=== PATIENT | female | born 1960 | race Two or more races ===

== ENCOUNTER 2017-03-21 10:55 | Emergency (ER) | payer OTHER ==
[2017-03-21 11:00] VITALS: BP 118/70; PULSE 73; TEMP 98.2; BMI 47.0
--- NOTE | 2017-03-21 12:49 | PDOC ---
History of Present Illness - General Chief Complaint: Pain, Acute Stated Complaint: LEG PAIN Time Seen by Provider: 03/21/17 11:12 History Source: Patient - History of Present Illness Initial Comments: 03/21/17 12:54 56 year old female with right leg numbness x 2 years s/p back surgery as per patient. report right leg pain x 2 weeks that is not improving at home. denies incontinence of bowel or urine. pmhx : HIV disease Past History - Past Medical History Allergies/Adverse Reactions: Allergies Allergy/AdvReac Type Severity Reaction Status Date / Time cephalexin monohydrate Allergy Severe Hives Verified 03/21/17 11:01 [From Keflex] lactose [Lactose] Allergy Mild diarrhea Verified 03/21/17 11:01 metronidazole [From Flagyl] AdvReac Intermediate Rash Verified 03/21/17 11:01 Home Medications: Ambulatory Orders Albuterol Sulfate Inhaler - [Ventolin HFA Inhaler -] 2 inh PO Q6H #1 inh Diphenhydramine [Benadryl Capsule -] 50 mg PO BID #60 capsule 10/08/16 Efavirenz/Emtricitab/Tenofovir [Atripla Tablet -] 1 tab PO DAILY #30 tab Ranitidine [Zantac -] 1 tab PO BID #60 tablet 10/08/16 Lidocaine/Hydrocortisone AC [Lidocaine-Hc 3-1% Cream] 1 applic TD PRN #1 bottle 10/26/16 Oxycodone HCl/Acetaminophen [Percocet 10-325 mg Tablet] 1 each PO Q6H PRN #120 tablet MDD 4 03/02/17 Lidocaine 2% Jelly [Xylocaine 2% Jelly -] 1 applic TP BID #1 tube 03/17/17 Lidocaine 2% Viscous Oral [Xylocaine 2% Viscous Oral -] 20 ml PO Q6H #1 tube 05/22 Sertraline HCl [Zoloft] 100 mg PO AM #30 tablet 03/17/17 Zolpidem Tartrate [Ambien] 10 mg PO HS #30 tablet MDD 1 03/17/17 Anemia: No Asthma: No Cancer: No Cardiac Disorders: No CVA: No COPD: No CHF: No Dementia: No Diabetes: No GI Disorders: No Disorders: No HTN: No Hypercholesterolemia: No Liver Disease: No Psychiatric Problems: No (Not before the surgery) Seizures: No Thyroid Disease: No - Surgical History Abdominal Surgery: Yes (benign tumor removed 2004) Appendectomy: No Cardiac Surgery: No Cholecystectomy: No Lung Surgery: No Neurologic Surgery: Yes (BACK SX - X 3; [id number]) Orthopedic Surgery: Yes (LEFT KNEE SURGERY TORN MENISCUS, back surgery, r shoulder surgery 2014) - Suicide/Smoking/Psychosocial Hx Smoking Status: Yes Smoking History: Former smoker Have you smoked in the past 12 months: No Number of Cigarettes Smoked Daily: 1 If you are a former smoker, when did you quit?: 2014 Cigars Per Day: 0 Information on smoking cessation initiated: No 'Breaking Loose' booklet given: 06/05/15 Hx Alcohol Use: No Drug/Substance Use Hx: No Substance Use Type: None, Alcohol Hx Substance Use Treatment: No Trauma Specific PMHX - Complaint Specific PMHX Arthritis: No Review of Systems - Review of Systems Able to Perform ROS?: Yes Is the patient limited Greek proficient: No Constitutional: No: Symptoms Reported, See HPI, Chills, Diaphoresis, Fever, Loss of Appetite, Malaise, Night Sweats, Weakness, Weight Stable, Unintentional Wgt. Loss, Unexplained wgt Loss, Other Musculoskeletal: Yes: Other (right leg pain) *Physical Exam - Vital Signs Last Vital Signs Temp Pulse Resp BP Pulse Ox 98.2 F 73 16 118/70 03/21/17 10:57 03/21/17 10:57 03/21/17 10:57 03/21/17 10:57 - Physical Exam General Appearance: Yes: Appropriately Dressed Musculoskeletal: positive: Normal Inspection. negative: Vertebral Tenderness Extremity: positive: Other (unequal sensation to right lower extremity. equal temperature. + b/l pedal pulse/ ) Integumentary: positive: Normal Color, Dry, Warm Neurologic: positive: Fully Oriented, Alert, Normal Mood/Affect ED Treatment Course - RADIOLOGY Radiology Studies Ordered: Category Date Time Status DUPLEX VASCUL US-1 LEG [US] Stat Ultrasound 03/21/17 11:23 Completed Progress Note - Progress Note Progress Note: A: right leg pain/ numbness P: us/ negative for DVT + bakers cyst. patient reports that she will follow up with orthopedic and neurology for chronic conditions. silvia control with NSAIDS / Percocet as per previously prescribed by pMD *DC/Admit/Observation/Transfer Diagnosis at time of Disposition: Right leg paresthesias Lau's cyst Qualifiers: Laterality: right Qualified Code(s): M71.21 - Synovial cyst of popliteal space [Lau], right knee - Referrals Referrals: Beck Leigh MD [Staff Physician] - Call tomorrow - Patient Instructions Printed Discharge Instructions: Bakers Cyst Additional Instructions: take ibuprofen every 6 hours as needed for pain. take percocet for severe pain. follow up with neurology as soon as possible. return to the ER if symptoms worsen. - Post Discharge Activity Forms/Work/School Notes: Back to Work
== END 2017-03-21 13:10 | disposition home or self-care (01) ==
LOC: JERFT 10:55
DX: M71.21 Synovial cyst of popliteal space [Baker], right knee (principal)
CPT/HCPCS: 93971-TC; 99281-25

== ENCOUNTER 2017-07-07 09:58 | Inpatient (IN) | payer OTHER ==
[2017-07-05 15:38] VITALS: BMI 50.9
[2017-07-07] MEDS ORDERED: DEXAMETHASONE SOD PHOSPHATE 4 MG/1 ML VIAL ONE (10:18)
[2017-07-07] MEDS ORDERED: fentaNYL CITRATE 250 MCG/5 ML VIAL ONE (10:18)
[2017-07-07] MEDS ORDERED: ROCURONIUM BROMIDE 50 MG/5 ML VIAL ONE ×2 (10:18→13:39)
[2017-07-07] MEDS ORDERED: MIDAZOLAM HCL 2 MG/2 ML SINGLE DOSE VIAL ONE (10:18)
[2017-07-07] MEDS ORDERED: LIDOCAINE HCL 2% 100 MG/5 ML DISP.SYRIN ONE (10:18)
[2017-07-07] MEDS ORDERED: PROPOFOL 20 ML ONE (10:18)
[2017-07-07] MEDS ORDERED: ceFAZolin SODIUM 1 GM VIAL IVPB ONE (13:08)
[2017-07-07] MEDS ORDERED: ceFAZolin SODIUM 1 GM VIAL ONE (13:16)
[2017-07-07] MEDS ORDERED: ePHEDrine SULFATE 50 MG/1 ML AMPULE ONE (13:37)
[2017-07-07] MEDS ORDERED: BUPIVACAINE HCL/PF 0.5% (5MG/ML) 10 ML VIAL IJ ONE ×2 (14:19→14:41)
[2017-07-07] MEDS ORDERED: NEOSTIGMINE METHYLSULFATE 0.5 MG/ML - 10 ML MDV ONE (14:39)
[2017-07-07] MEDS ORDERED: GLYCOPYRROLATE 0.2 MG/1 ML VIAL ONE ×2 (14:39)
--- NOTE | 2017-07-07 14:51 | HP ---
History & Physical Update - History History: No Change - Physical Physical: No Change - Assessment Assessment: No Change - Plan Plan: No Change (Laparoscopic possible open vertical sleeve gastrectomy possible liver biopsy EGD)
--- NOTE | 2017-07-07 14:54 | OP ---
Operative Note - Note: Operative Date: 07/07/17 Pre-Operative Diagnosis: Morbid obesity. BMI 50.9 Operation: Laparoscopic vertical sleeve gastrectomy, wedge liver biopsy, EGD Post-Operative Diagnosis: Other (Morbid obesity, hepatomegaly) Surgeon: Pramod Warren Public Safety Dispatcher: Ed Laguerre Anesthesia: General Specimens Removed: Greater curvature of stomach. Left lobe liver biopsy Estimated Blood Loss (mls): 30 Drains & Tubes with Location: 36 Fr Bougie Operative Report Dictated: Yes
[2017-07-07] MEDS ORDERED: SODIUM CHLORIDE 1,000 ML IV SCH (15:00)
[2017-07-07] MEDS ORDERED: METOCLOPRAMIDE HCL INJECTION 10 MG/2 ML VIAL ONE (15:09)
[2017-07-07] MEDS ORDERED: PROMETHAZINE HCL 25 MG/1 ML VIAL IVPB PRN (15:09)
[2017-07-07] MEDS ORDERED: HYDROmorphone HCL CARPU-JECT 2 MG/1 ML DISP.SYRIN ONE ×2 (15:09→16:10)
[2017-07-07] MEDS ORDERED: ACETAMINOPHEN INJECTION 100 ML IVPB ONE (15:09)
[2017-07-07] MEDS: HYDROmorphone HCL CARPU-JECT 2 MG/1 ML DISP.SYRIN IVPUSH PRN ×3 (15:10→16:10)
[2017-07-07] MEDS: ACETAMINOPHEN 1000 MG/100 ML VIAL (NON FORMULARY) IVPB SCH ×2 (15:15→19:59)
--- NOTE | 2017-07-07 15:26 | SPEC ---
DATE OF OPERATION: 07/07/2017 SURGEON: Pramod Warren MD HIGH SCALER: Ed Laguerre MD PREOPERATIVE DIAGNOSES: 1. Morbid obesity. 2. Body mass index 50.9. 3. Asthma. 4. Gastroesophageal reflux disease. POSTOPERATIVE DIAGNOSES: 1. Morbid obesity. 2. Body mass index 50.9. 3. Asthma. 4. Gastroesophageal reflux disease. 5. Hepatomegaly. PROCEDURE: 1. Laparoscopic vertical sleeve gastrectomy. 2. Laparoscopic wedge liver biopsy. 3. Upper endoscopy/esophagogastroduodenoscopy. SPECIMEN: 1. Greater curvature of the stomach. 2. Left liver wedge biopsy. ESTIMATED BLOOD LOSS: 30 mL DRAINS: None. ANESTHESIA: GET. BOUGIE: A 36-Welsh. REASON FOR PROCEDURE: This 56-year-old female presented to the office for weight loss options. After describing different options, she has decided to proceed with a laparoscopic vertical sleeve gastrectomy, possible open, possible liver biopsy, and upper endoscopy. RISKS AND BENEFITS: After describing the different options for weight loss management, the patient decided to proceed with a laparoscopic, possible open vertical sleeve gastrectomy. The patient was seen by the respective subspecialties and cleared for surgery. The risks and benefits of the procedure were explained. These included bleeding, infection, hernia, DE, DVT, PE, injury to surrounding structures including the liver, colon, bowel, spleen, esophagus, vessel injury, nerve injury, weight regain, gastric leak, staple line leak, sleeve leak, obstruction, vitamin deficiency, hair loss and as some of the possible complications. The patient understood and signed informed consent. DESCRIPTION OF PROCEDURE: The patient was placed supine on the operating room table. The patient underwent general endotracheal intubation. A Santos catheter was inserted. The arms were brought out at 90 degrees and secured. A footboard was placed and the legs were secured laterally with padding. The abdomen was prepped and draped in the usual sterile fashion. A timeout was performed. An incision was made in the left upper quadrant and a Veress needle inserted. Pneumoperitoneum was established. Subsequently, the Veress needle was removed and a 12-mm trocar was placed. The laparoscopic camera was then inserted and inspection of the abdominal cavity was performed. An incision was then made in the supraumbilical area and a 15-mm trocar was placed under direct visualization. A 5-mm trocar was then placed in the right upper quadrant and a 5-mm trocar was placed below the left subcostal margin. A stab wound was made in the subxiphoid area and a Claudia clamp inserted and removed to dilate the tract. A Martín liver retractor was inserted. The post was secured at the bedside by the nursing staff. The patient was placed in steep reverse Trendelenburg position and the Martín liver retractor was used to secure the liver towards the anterior abdominal wall. The pylorus was identified and 6 cm proximal to it, the lesser sac was entered using the LigaSure device. All lateral attachments to the greater curvature of the stomach, including the short gastric vessels, were ligated using the LigaSure device toward the gastrosplenic and gastrophrenic ligaments. Once this was done in its entirety, it was confirmed that all tubes within the nasal or oropharyngeal cavity, including a temperature probe, was removed by Anesthesia. The bougie was then inserted by Anesthesia. Transection of the stomach was then begun staying adjacent to the bougie but away from the angularis. Transection of the stomach was performed near the portion of the stomach where the lesser sac was entered. Two laparoscopic Endo-LULU black lalita were used at this location. Laparoscopic Endo LULU purple staple loads were then used for the remainder of the transection until the greater curvature of the stomach was fully transected. This was done staying close to the bougie. Care was taken to stay away from the angle of His cephalad. The staple line was then inspected. Hemostasis was identified. A leak test was then performed. It was clamped distally to the staple line. Irrigation solution was placed in the left upper quadrant and air was insufflated by Anesthesia into the sleeve. No leaks were identified. No obstruction was identified. This was done through the entirety of the staple line. At this point, the irrigation solution was suctioned and again, hemostasis was noted. A wedge liver biopsy was then performed. The left lobe of the liver was identified and a portion of the edge was grasped. Using electrocautery, a wedge of the liver was excised. This was removed and sent off the field as specimen. Hemostasis at the site of the wedge liver biopsy was attained using electrocautery. The 15-mm supraumbilical trocar was then removed and the greater curvature specimen removed from the site using a sponge stick cheney. The specimen was inspected and a Veress needle inserted. The specimen insufflated adequately and no leak was identified. The staple line was noted to be intact. A Matteo-Makenzie device was then used to temporarily close the fascia with a 0 Vicryl suture at the site. The 15-mm trocar was then reinserted and the 12-mm trocar in the left upper quadrant was removed. The fascia at this site was then closed using the Matteo-Makenzie device with a 0 Vicryl suture. Again, hemostasis was noted. The Martín liver retractor was then removed under direct visualization. Pneumoperitoneum was desufflated and the fascial sutures were secured. Hemostasis was noted at all incision sites and Marcaine was injected at all incision sites. All incision sites were closed using 4-0 Biosyn. Sterile dressings were applied. The patient tolerated the procedure well and was transferred to the recovery room in stable condition with the Santos catheter intact. The patient was transferred to telemetry for further monitoring. In addition, an upper endoscopy was performed at the end. This was to evaluate the staple line and to evaluate for further leak or obstruction. The endoscope was inserted, and the entirety of the esophagus, GE junction, staple line, and gastric pouch was inspected. Staple line was noted to be fully intact, and hemostasis was noted. There was no leak or obstruction noted. Stomach was fully decompressed, and the endoscope fully removed. Patient tolerated the procedure well, transferred to recovery room in stable condition. Quan [id number]
[2017-07-07] MEDS ORDERED: PROMETHAZINE HCL 25 MG/1 ML VIAL ONE (15:36)
[2017-07-07] MEDS: METOCLOPRAMIDE HCL INJECTION 10 MG/2 ML VIAL IVPUSH SCH ×2 (15:45→22:00)
[2017-07-07] MEDS ORDERED: LORazepam 2 MG/ML SDV VIAL IVPUSH PRN (15:47)
[2017-07-07 16:01] LABS: HEMATOCRIT 38.5 % (32.4-45.2); HEMOGLOBIN 12.4 GM/dL (10.7-15.3); MCH 27.5 pg (25.7-33.7); MCHC 32.3 g/dl (32.0-36.0); MEAN CELL VOLUME 85.3 fl (80-96); MEAN PLT VOLUME 9.6 fl (7.5-11.1); PLATELET COUNT 238 K/MM3 (134-434); RBC 4.51 M/mm3 (3.60-5.2); RDW 15.9 % (11.6-15.6); WHITE BLOOD COUNT 9.1 K/mm3 (4.0-10.0)
[2017-07-07 16:34] LABS: ALBUMIN 3.3 g/dl (3.4-5.0); ANION GAP 7 (8-16); BILIRUBIN,TOTAL 0.2 mg/dL (0.2-1.0); BLOOD UREA NITROGEN 14 mg/dL (7-18); CALCIUM 7.4 mg/dL (8.5-10.1); CHLORIDE 108 mmol/L (98-107); CO2 25 mmol/L (21-32); CREATININE 0.6 mg/dL (0.55-1.02); GLUCOSE,RANDOM 138 mg/dL (74-106); POTASSIUM 3.9 mmol/L (3.5-5.1); SGOT/AST 41 U/L (15-37); SGPT/ALT 43 U/L (12-78); SODIUM 140 mmol/L (136-145); TOT PROT 6.5 g/dl (6.4-8.2)
[2017-07-07 16:35] LABS: ALK PHOS 133 U/L (45-117)
[2017-07-07] MEDS: HYDROmorphone HCL CARPU-JECT 2 MG/1 ML DISP.SYRIN IVPB PRN ×2 (17:42→21:05)
[2017-07-07] MEDS: ONDANSETRON 4 MG/2 ML VIAL IVPUSH SCH (20:35)
[2017-07-07] MEDS: FAMOTIDINE 20 MG/50 ML IVPB 20 MG/50 ML MG IVPB SCH (22:01)
[2017-07-07] MEDS: ENOXAPARIN NA (PORCINE) 40 MG/0.4 ML DISP.SYRIN SQ SCH (22:01)
[2017-07-08] MEDS: HYDROmorphone HCL CARPU-JECT 2 MG/1 ML DISP.SYRIN IVPB PRN ×4 (00:08→20:35)
[2017-07-08] MEDS: ONDANSETRON 4 MG/2 ML VIAL IVPUSH SCH ×8 (00:08→22:59)
[2017-07-08] MEDS: ACETAMINOPHEN 1000 MG/100 ML VIAL (NON FORMULARY) IVPB SCH ×2 (03:00→09:02)
[2017-07-08] MEDS: METOCLOPRAMIDE HCL INJECTION 10 MG/2 ML VIAL IVPUSH SCH ×4 (03:01→20:35)
[2017-07-08] MEDS ORDERED: ALBUTEROL SO4 18 GM HFA INHALER IH PRN (04:39)
[2017-07-08 07:09] LABS: HEMATOCRIT 35.2 % (32.4-45.2); HEMOGLOBIN 11.1 GM/dL (10.7-15.3); MCH 27.2 pg (25.7-33.7); MCHC 31.6 g/dl (32.0-36.0); MEAN CELL VOLUME 86.1 fl (80-96); MEAN PLT VOLUME 9.3 fl (7.5-11.1); PLATELET COUNT 234 K/MM3 (134-434); RBC 4.09 M/mm3 (3.60-5.2); RDW 16.2 % (11.6-15.6); WHITE BLOOD COUNT 9.1 K/mm3 (4.0-10.0)
[2017-07-08 07:24] LABS: CHLORIDE 107 mmol/L (98-107); POTASSIUM 3.9 mmol/L (3.5-5.1); SODIUM 139 mmol/L (136-145)
[2017-07-08 07:35] LABS: ALK PHOS 116 U/L (45-117); ANION GAP 8 (8-16); BILIRUBIN,TOTAL 0.5 mg/dL (0.2-1.0); BLOOD UREA NITROGEN 9 mg/dL (7-18); CALCIUM 7.3 mg/dL (8.5-10.1); CO2 24 mmol/L (21-32); CREATININE 0.6 mg/dL (0.55-1.02); GLUCOSE,RANDOM 111 mg/dL (74-106); SGOT/AST 39 U/L (15-37); SGPT/ALT 39 U/L (12-78)
[2017-07-08] MEDS: FAMOTIDINE 20 MG/50 ML IVPB 20 MG/50 ML MG IVPB SCH ×2 (09:02→21:12)
[2017-07-08] MEDS: ENOXAPARIN NA (PORCINE) 40 MG/0.4 ML DISP.SYRIN SQ SCH ×2 (09:05→21:12)
--- NOTE | 2017-07-08 09:56 | PN ---
Progress Note (short form) - Note Progress Note: Anesthesia postop note 56 y/o F s/p GA for laparoscopic gastric sleeve POD#1, vss, aaox3, some abdominal apin. No anesthesia complications.
[2017-07-08] MEDS: SODIUM CHLORIDE 1,000 ML IV SCH (10:19)
[2017-07-08] MEDS: ACETAMINOPHEN 325 MG TABLET (FP) PO PRN (18:39)
[2017-07-08] MEDS: oxyCODONE HCL 5 MG TABLET PO PRN (18:39)
--- NOTE | 2017-07-08 18:50 | PN ---
Progress Note (short form) - Note Progress Note: POD 1 Pain controlled No nausea Vital Signs Period Temp Pulse Resp BP Sys/Dickson Pulse Ox Last 24 Hr 97.8 F-99.5 F 68-77 18-20 110-129/46-67 95-95 Abd soft CBC, BMP 07/08/17 05:35 07/08/17 05:35 UGI: no leak/obstruction Clears Ambulate Discharge planning
[2017-07-09] MEDS: SODIUM CHLORIDE 1,000 ML IV SCH (01:00)
[2017-07-09] MEDS: ACETAMINOPHEN 325 MG TABLET (FP) PO PRN ×2 (01:02→05:45)
[2017-07-09] MEDS: oxyCODONE HCL 5 MG TABLET PO PRN ×2 (01:02→05:46)
[2017-07-09] MEDS: METOCLOPRAMIDE HCL INJECTION 10 MG/2 ML VIAL IVPUSH SCH (02:41)
[2017-07-09] MEDS: ONDANSETRON 4 MG/2 ML VIAL IVPUSH SCH ×2 (02:41→06:34)
[2017-07-09 06:50] VITALS: BP 145/66; PULSE 75; TEMP 99.4
--- NOTE | 2017-07-12 14:33 | PATH ---
Surgical Pathology Report Patient Name: ESTHELA MARTI [facility]. Rec. #: [id number] /Age/Gender: 1960 (Age: 56) / F Account: [id number] Location: 4 W TELEMETRY U Taken: 07/07/2017 Received: 07/08/2017 Reported: 07/12/2017 Physicians: Pramod Warren M.D. Specimen(s) Received A: GREATER CURVATURE STOMACH B: LIVER BIOPSY Clinical History Morbid obesity Final Diagnosis A. STOMACH, GREATER CURVATURE, LAPAROSCOPIC VERTICAL SLEEVE GASTRECTOMY: PORTION OF STOMACH WITH MILD CHRONIC GASTRITIS. IMMUNOHISTOCHEMICAL STAIN FOR H. PYLORI IS NEGATIVE. B. LIVER, BIOPSY: LIVER PARENCHYMA WITH MILD STEATOSIS (~30%) AND MILD CHOLESTASIS. NO INCREASE IN IRON AND FIBROSIS ON PERFORMED SPECIAL STAINS (IRON AND TRICHROME). Electronically Signed Renuka Bergman M.D. Gross Description A. Received in formalin, labeled "greater curvature of stomach," is a 105 gram, 15.0 x 3.5 x 3.5 cm. portion of stomach with a stapled margin of resection. The serosa is peterson-amaral with minimal attached fat. The mucosa is peterson-pink with normal folds. No mucosal masses are identified. Director Digital [employer] sections are submitted in one cassette. B. Received in formalin labeled "liver biopsy," is a 1.8 x 1.0 x 0.9 cm peterson, irregular portion of soft tissue, consistent with a liver biopsy. The specimen is trisected and entirely submitted in one cassette. 07/08/201707/08/2017
== END 2017-07-09 08:56 | disposition home or self-care (01) | DRG 403 ==
LOC: JSAMEDAYSX 09:58 → EDSTATUS 11:00 → J4W 17:15
PROVIDERS: ADMIT Surgery; ATTEND Surgery
PROC: 0DB64Z3 Excision of Stomach, Percutaneous Endoscopic Approach, Vertical (ICD-10-PCS; principal; 2017-07-07 12:00)
PROC: 0FB24ZX Excision of Left Lobe Liver, Percutaneous Endoscopic Approach, Diagnostic (ICD-10-PCS; 2017-07-07 12:00)
PROC: 0DJ08ZZ Inspection of Upper Intestinal Tract, Via Natural or Artificial Opening Endoscopic (ICD-10-PCS; 2017-07-07 12:00)
DX: E66.01 Morbid (severe) obesity due to excess calories (principal); Z68.43 Body mass index [BMI] 50.0-59.9, adult; R16.0 Hepatomegaly, not elsewhere classified; J45.909 Unspecified asthma, uncomplicated; Z21 Asymptomatic human immunodeficiency virus [HIV] infection status; K21.9 Gastro-esophageal reflux disease without esophagitis; G47.33 Obstructive sleep apnea (adult) (pediatric)
CPT/HCPCS: 36415; 74241-TC-FY; 80053; 84703; 85027; 86850; 86900; 86901; 88307-TC; 94010; 94760

== ENCOUNTER 2018-09-19 07:09 | Day surgery (SDC) | payer OTHER ==
[2018-09-19 07:48] VITALS: BMI 29.4
[2018-09-19 08:29] VITALS: TEMP 97.5
[2018-09-19 09:13] VITALS: BP 113/60; PULSE 48
== END 2018-09-19 09:42 | disposition home or self-care (01) ==
LOC: JASU-ENDO 07:09
PROVIDERS: ATTEND Internal Medicine Gastroenterology
PROC: 0D768ZZ Dilation of Stomach, Via Natural or Artificial Opening Endoscopic (ICD-10-PCS; principal; 2018-09-19 08:45)
DX: R11.10 Vomiting, unspecified (principal); Z98.84 Bariatric surgery status; K44.9 Diaphragmatic hernia without obstruction or gangrene; K25.9 Gastric ulcer, unspecified as acute or chronic, without hemorrhage or perforation

== ENCOUNTER 2018-11-23 17:37 | Emergency (ER) | payer OTHER ==
[2018-11-23 18:33] VITALS: BMI 27.4
--- NOTE | 2018-11-23 18:35 | PDOC ---
Rapid Medical Evaluation Chief Complaint: Pain Time Seen by Provider: 11/23/18 18:30 Medical Evaluation: Allergies Allergy/AdvReac Type Severity Reaction Status Date / Time cephalexin monohydrate Allergy Severe Hives Verified 07/07/17 11:49 [From Keflex] Penicillins Allergy Severe Hives Verified 09/19/18 07:40 lactose [Lactose] Allergy Mild diarrhea Verified 07/07/17 11:49 metronidazole [From Flagyl] AdvReac Intermediate Rash Verified 07/07/17 11:49 11/23/18 18:30 I have performed a brief in-person evaluation of this patient. The patient presents with a chief complaint of: Bariatric surgery 07/07/17- sleeve , multple issues/ chronic vomiting , abdominal pain x 4 days worsening/ felt chills/ fevers/ nausea- vomiting x 6 , + diarhea Pertinent physical exam findings: pale, hunched over, + rebound / some guarding I have ordered the following: UA/ Ucx, / Labs The patient will proceed to the ED for further evaluation. 11/23/18 18:33 Discharge Disposition - Diagnosis Nausea & vomiting - Referrals - Patient Instructions - Post Discharge Activity
--- NOTE | 2018-11-23 20:39 | PDOC ---
History of Present Illness - General Chief Complaint: Vomiting/Diarrhea Stated Complaint: PAIN & VOMITING Time Seen by Provider: 11/23/18 18:30 - History of Present Illness Initial Comments: The pt is a 58F w/ s/p gastric sleeve, PUD, HIV who presents for evaluation of 3 days and acutely 1 day of epigastric abdominal pain with associated nausea and NBNB vomiting x7 today. The pain is burning/cramping, radiates to her back and the rest of her abdomen, is intermittent but persistent, worsened by foods ( and coffee today), and not alleviated by anything she can identify. She denies fevers/chills, chest pain, SOB, current diarrhea, blood in her stool , dysuria, hematuria, or changes in sensation. She was unable to take her meds today 2/2 PO intolerance. 11/23/18 20:41 Past History - Past Medical History Allergies/Adverse Reactions: Allergies Allergy/AdvReac Type Severity Reaction Status Date / Time cephalexin monohydrate Allergy Severe Hives Verified 11/23/18 18:33 [From Keflex] Penicillins Allergy Severe Hives Verified 11/23/18 18:33 lactose [Lactose] Allergy Mild diarrhea Verified 11/23/18 18:33 metronidazole [From Flagyl] AdvReac Intermediate Rash Verified 11/23/18 18:33 Home Medications: Ambulatory Orders Fluticasone Prop 0.05% Nasal [Flonase -] 1 - 2 spray NS DAILY PRN 07/05/17 Calcium Carbonate [Calcium] 500 mg PO DAILY #30 tablet 09/28/17 Omeprazole 20 mg PO DAILY PRN #30 capsule.dr MATOS 1 11/23/17 Efavirenz/Emtricitab/Tenofovir [Atripla Tablet -] 1 tab PO DAILY #30 tab Ascorbic Acid [Vitamin C -] 500 mg PO DAILY #30 tablet 07/20/18 Cholecalciferol (Vitamin D3) [Vitamin D3] 5,000 unit PO DAILY #30 tab.rapdis Gabapentin [Neurontin] 600 mg PO TID #90 tablet 07/20/18 Vitamin B Complex 1 each PO DAILY #30 capsule 07/20/18 Acetaminophen 325 mg PO BID PRN #60 tablet 09/13/18 Multivitamin [Multiple Vitamins] 1 each PO DAILY #30 tablet 10/13/18 Cetirizine HCl [Zyrtec -] 10 mg PO DAILY #30 tablet 11/01/18 Oxycodone HCl/Acetaminophen [Percocet 10-325 mg Tablet] 1 each PO Q6H PRN #120 tablet MDD 4 11/15/18 Diphenhydramine [Benadryl Capsule -] 50 mg PO BID PRN #60 capsule 11/16/18 Anemia: No Asthma: No Cancer: No Cardiac Disorders: No CVA: No COPD: No CHF: No Dementia: No Diabetes: No GI Disorders: Yes (vomiting chronic) Disorders: No HTN: No Hypercholesterolemia: No Liver Disease: No Psychiatric Problems: No (Not before the surgery) Seizures: No Thyroid Disease: No - Surgical History Abdominal Surgery: Yes (benign tumor removed 2004) Appendectomy: No Cardiac Surgery: No Cholecystectomy: No Lung Surgery: No Neurologic Surgery: Yes (BACK SX - X 3; [id number]) Orthopedic Surgery: Yes (LEFT KNEE SURGERY TORN MENISCUS, back surgery, r shoulder surgery 2014) - Suicide/Smoking/Psychosocial Hx Smoking Status: Yes Smoking History: Never smoked Have you smoked in the past 12 months: No Number of Cigarettes Smoked Daily: 1 If you are a former smoker, when did you quit?: 2016 Cigars Per Day: 0 Information on smoking cessation initiated: No 'Breaking Loose' booklet given: 06/05/15 Hx Alcohol Use: No Drug/Substance Use Hx: No Substance Use Type: None Hx Substance Use Treatment: No Review of Systems - Review of Systems Able to Perform ROS?: Yes Comments:: GENERAL/CONSTITUTIONAL: No fever or chills. No weakness HEAD, EYES, EARS, NOSE AND THROAT: No change in vision. No ear pain or discharge. No sore throat CARDIOVASCULAR: No chest pain or shortness of breath RESPIRATORY: Denies cough, hemoptysis GENITOURINARY: No dysuria, frequency, or change in urination MUSCULOSKELETAL: No joint or muscle swelling or pain. No neck or back pain SKIN: No rash NEUROLOGIC: No headache, vertigo, loss of consciousness, or change in strength/ sensation ENDOCRINE: No increased thirst. No abnormal weight change HEMATOLOGIC/LYMPHATIC: No anemia, easy bleeding, or history of blood clots ALLERGIC/IMMUNOLOGIC: No hives or skin allergy 11/23/18 20:39 Is the patient limited Iranian proficient: No *Physical Exam - Vital Signs Last Vital Signs Temp Pulse Resp BP Pulse Ox 98.6 F 68 18 103/53 L 99 11/23/18 18:30 11/23/18 18:30 11/23/18 18:30 11/23/18 18:30 11/23/18 18:30 - Physical Exam Comments: GENERAL: Awake, alert, and oriented to person/place/time, in no acute distress HEAD: No signs of trauma, normocephalic, atraumatic EYES: PERRLA, EOMI, sclera anicteric, conjunctiva clear ENT: Hearing grossly normal, nares patent, oropharynx clear without exudates. Moist mucosa LUNGS: No distress, speaks full sentences, clear to auscultation bilaterally HEART: Regular rate and rhythm, normal S1 and S2, no murmurs appreciated, peripheral pulses normal and equal bilaterally ABDOMEN: Soft, diffuse but focal epigastric TTP w/o rebound or guarding w/ +BS EXTREMITIES: Normal inspection, Normal range of motion, no edema. No clubbing or cyanosis NEUROLOGICAL: Cranial nerves II through XII grossly intact. Normal speech, normal gait, no focal sensorimotor deficits SKIN: Warm, Dry 11/23/18 20:39 ED Treatment Course - LABORATORY CBC & Chemistry Diagram: 11/23/18 20:38 11/23/18 20:38 Medical Decision Making - Medical Decision Making Labs unremarkable UA w/o evidence of UTI Will obtain CT A&P w/ IV and PO contrast to evaluate for perforation, obstruction, or other intra-abdominal pathology Zofran, IVF, Pepcid, Ofirmev for symptomatic relief When pt can tolerate PO, will give Carafate, Maalox, and Viscous lido 11/23/18 21:11 Impression: mild to moderate gallbladder overdistention is seen with possible minimal to mild gallbladder wall thickening. If there is clinical concern for possible acute cholecystitis additional evaluation utilizing sonography and/or a radionuclide HIDA scan may be performed. Status post sleeve gastrectomy. Small hiatal hernia. Possible diffuse hepatic steatosis. Diffuse colonic fecal retention which is probably moderate. 11/24/18 00:06 US w/ distended GB, stones, no secondary evidence of cholecysitis, CBD mildly dilated to 7mm and mild bump in LFTs w/ normal Tbili. GI consulted, no indication for ERCP at this time as history, imaging, and labs not consistent with CBD obstruction 11/24/18 01:37 The pt no longer feels nauseated. She states that her pain is near her baseline and type and reports that she usually takes Percocet 10/325 QID but has not taken it since this morning. We discussed her imaging, labs, and GI consultation. At this time the pt would like her home dose of Percocet to be discharged home. Will plan for D/C w/ GI f/u. Discharge instructions and return precautions given. Dipso: home 11/24/18 01:54 *DC/Admit/Observation/Transfer Diagnosis at time of Disposition: Nausea & vomiting Qualifiers: Vomiting type: unspecified Vomiting Intractability: non-intractable Qualified Code(s): R11.2 - Nausea with vomiting, unspecified Abdominal pain Qualifiers: Abdominal location: epigastric Qualified Code(s): R10.13 - Epigastric pain - Discharge Dispostion Disposition: HOME Condition at time of disposition: Stable Decision to Admit order: No - Referrals Referrals: Anila Del Valle NP [Primary Care Provider] - Geronimo Pike MD [Staff Physician] - - Patient Instructions Printed Discharge Instructions: DI for Gastric Ulcer, DI for Constipation Additional Instructions: You were seen in the Emergency Department for evaluation of abdominal pain with nausea and vomiting. Your labs were notable for a mild elevation in your liver function tests, and your imaging was notable for a heavy stool burden and a distended gallbladder. Review the handout provided at discharge. Follow up with gastroenterology within a week. Return to the Emergency Department if you develop fevers/chills, chest pain, trouble breathing, inability to tolerate food , worsening symptoms, lightheadedness, or any new/concerning symptoms. - Post Discharge Activity Forms/Work/School Notes: Back to Work
[2018-11-23] MEDS ORDERED: FAMOTIDINE 20 MG/50 ML IVPB 20 MG/50 ML MG IVPB ONE (20:44)
[2018-11-23] MEDS ORDERED: ACETAMINOPHEN INJECTION 100 ML IVPB ONE (20:44)
[2018-11-23] MEDS ORDERED: ONDANSETRON 4 MG/2 ML VIAL ONE (20:44)
[2018-11-23 20:49] LABS: EPI CELLS 2.9 /HPF (0-5/HPF); HYALINE CASTS 5 /lpf (0-8); PH,URINE 6.5 (5.0-8.0); URINE APPEARANCE CLOUDY; URINE BACTERIA 108.2 /hpf (NEGATIVE); URINE BILIRUBIN NEGATIVE (NEGATIVE); URINE COLOR YELLOW; URINE GLUCOSE (UA) NEGATIVE (NEGATIVE); URINE KETONE NEGATIVE (NEGATIVE); URINE LEUK ESTERASE TRACE (NEGATIVE); URINE NITRITE NEGATIVE (NEGATIVE); URINE PROTEIN NEGATIVE (NEGATIVE); URINE RBC 1 /hpf (0-4); URINE UROBILINOGEN 0.2 mg/dL (0.2-1.0); URINE WBC 2 /hpf (0-5)
[2018-11-23] MEDS ORDERED: ONDANSETRON 4 MG/2 ML VIAL IVPUSH ONE (20:53)
[2018-11-23] MEDS ORDERED: SODIUM CHLORIDE 0.9% 500 ML INFUS.BAG IV ONE (20:53)
[2018-11-23] MEDS ORDERED: ACETAMINOPHEN 1000 MG/100 ML VIAL (NON FORMULARY) IVPB ONE (20:53)
[2018-11-23 20:57] LABS: BASO % 0.8 % (0-2.0); EOS % 0.9 % (0-4.5); HEMATOCRIT 36.2 % (32.4-45.2); HEMOGLOBIN 11.9 GM/dL (10.7-15.3); LYMPH % 31.7 % (8-40); MCH 30.1 pg (25.7-33.7); MEAN CELL VOLUME 91.2 fl (80-96); MEAN PLT VOLUME 9.3 fl (7.5-11.1); MONO % 6.5 % (3.8-10.2); NEUT % 60.1 % (42.8-82.8); PLATELET COUNT 225 K/MM3 (134-434); RBC 3.97 M/mm3 (3.60-5.2); RDW 15.3 % (11.6-15.6); WHITE BLOOD COUNT 4.4 K/mm3 (4.0-10.0)
[2018-11-23 20:59] LABS: INR 1.02 (0.83-1.09)
[2018-11-23 21:10] LABS: ALBUMIN 3.6 g/dl (3.4-5.0); BILIRUBIN,TOTAL 0.3 mg/dL (0.2-1); BLOOD UREA NITROGEN 12.2 mg/dL (7-18); CALCIUM 8.7 mg/dL (8.5-10.1); CREATININE 0.7 mg/dL (0.55-1.3); POTASSIUM 3.8 mmol/L (3.5-5.1); TOT PROT 6.8 g/dl (6.4-8.2)
--- NOTE | 2018-11-23 21:37 | PDOC ---
Documentation entered by Eligio Norris SCRIBE, acting as scribe for Trell Pike MD. Trell Pike MD: This documentation has been prepared by the Jr elmore Daniel, SCRIBE, under my direction and personally reviewed by me in its entirety. I confirm that the documentation accurately reflects all work, treatment, procedures, and medical decision making performed by me. Attending Attestation - Resident Resident Name: Ranjit Pickering - ED Attending Attestation I have performed the following: I have examined & evaluated the patient, The case was reviewed & discussed with the resident, I agree w/resident's findings & plan, Exceptions are as noted - HPI HPI: 11/23/18 21:06 The patient is a 58 year old female with a past medical history of hiatal hernia , HIV (on HAART), gastric sleeve (s/p several dilations), and suspected gastroparesis (currently receiving a work up) here today for evaluation of acute on chronic abdominal pain and vomiting. The patient reports that she has chronic abdominal pain and vomiting but has had worsening abdominal pain and vomiting since tuesday (11/20/18). Patient notes 6 episodes of non bloody non bilious vomiting. She describes her abdominal pain as burning and cramping that is diffuse through her entire abdomen and radiates to her back. She notes that it was worse when she drank coffee this morning and tried taking zantac with no relief. Patient denies headache, lightheadedness. Denies fever, chills. Denies chest pain, shortness of breath. Denies diarrhea, melena, bpr, hematemesis Allergies: cephalexin monohydrate, penicillins, lactose, metronidazole PCP: Anila Del Valle GI: Geronimo Pike - Physicial Exam PE: 11/23/18 21:31 GENERAL: The patient is awake, alert, and fully oriented, Nontoxic - in no acute distress. HEAD: Normocephalic, atraumatic. EYES: extraocular movements intact, sclera anicteric, conjunctiva clear. ENT: Normal voice, Moist mucous membranes. LUNGS: Breath sounds equal, clear to auscultation bilaterally. No wheezes, no rhonchi, no rales. HEART: Regular rate and rhythm, ABDOMEN: Soft, mild epigastric tenderness, no rebound or guarding EXTREMITIES: Normal range of motion, no edema. No clubbing or cyanosis. No cords, erythema, or tenderness. NEUROLOGICAL: No facial assymetry, Normal speech, moving all 4 ext spontaneously and symmetrically PSYCH: Normal mood, normal affect. SKIN: Warm, Dry, normal turgor, - Medical Decision Making 11/23/18 21:00 58y hx of gastric sleeve, possible gastric paresis presents with persistent abd pain, diarrhea that has resovled and increasing and persitent nbnb vomiting. Pain is burning/cramping in the epigastric radiating to the back and diffusely without fever/chills, melena, bpr, dysuria, hematuria. no bm since tuesday abd soft, mild epgiastric ttp, no rebound b/l CVA ttp ddx - obstruction, pancreatitis, gastritis, gastroparesis will obtain blood work, lipase, ct abd will give fluids, pepcid/maalox will reassess 11/23/18 23:[address] abd noted for moderate stool borderline thickening of gb wall, however no focal ttp or signs sugestive of acute cholecystitis
[2018-11-23] MEDS ORDERED: LIDOCAINE VISCOUS 2% ORAL/TOP 20 ML UNIT-DOSE CUP MM ONE (22:24)
[2018-11-23] MEDS ORDERED: MAG HYDROX/AL HYDROX/SIMETH 30 ML UNIT-DOSE CUP PO ONE (22:24)
[2018-11-23] MEDS ORDERED: SUCRALFATE 1 GM TABLET (FP) ONE (22:53)
[2018-11-23] MEDS ORDERED: MAG HYDROX/AL HYDROX/SIMETH 30 ML UNIT-DOSE CUP ONE (22:53)
[2018-11-23] MEDS ORDERED: LIDOCAINE VISCOUS 2% ORAL/TOP 20 ML UNIT-DOSE CUP ONE (22:53)
[2018-11-24] MEDS ORDERED: POLYETHYLENE GLYCOL 3350 119 GM BTL PO ONE (00:07)
[2018-11-24 01:54] VITALS: BP 101/46; PULSE 56; TEMP 97.6
[2018-11-24] MEDS ORDERED: SUCRALFATE 1 GM/10 ML UNIT DOSE CUPS PO ONE (22:18)
== END 2018-11-24 02:08 | disposition home or self-care (01) ==
LOC: JER 17:37
PROC: 3E033NZ Introduction of Analgesics, Hypnotics, Sedatives into Peripheral Vein, Percutaneous Approach (ICD-10-PCS; principal; 2018-11-23)
PROC: 3E033GC Introduction of Other Therapeutic Substance into Peripheral Vein, Percutaneous Approach (ICD-10-PCS; 2018-11-23)
PROC: 3E0337Z Introduction of Electrolytic and Water Balance Substance into Peripheral Vein, Percutaneous Approach (ICD-10-PCS; 2018-11-23)
DX: R10.84 Generalized abdominal pain (principal); R11.2 Nausea with vomiting, unspecified; K59.00 Constipation, unspecified; Z87.19 Personal history of other diseases of the digestive system; Z98.84 Bariatric surgery status
CPT/HCPCS: 36415; 74177-TC; 76705-TC; 80053; 81003; 83690; 85025; 85610; 87086; 99281-25; J0131

== ENCOUNTER 2018-11-27 13:21 | Inpatient (IN) | payer OTHER ==
[2018-11-27] MEDS ORDERED: morphine CARPU-JECT 4 MG/1 ML DISP.SYRIN IVPUSH ONE (13:27)
[2018-11-27] MEDS ORDERED: ONDANSETRON 4 MG/2 ML VIAL IVPUSH ONE (13:27)
--- NOTE | 2018-11-27 13:27 | PDOC ---
Rapid Medical Evaluation Time Seen by Provider: 11/27/18 13:24 Medical Evaluation: Allergies Allergy/AdvReac Type Severity Reaction Status Date / Time cephalexin monohydrate Allergy Severe Hives Verified 11/23/18 18:33 [From Keflex] Penicillins Allergy Severe Hives Verified 11/23/18 18:33 lactose [Lactose] Allergy Mild diarrhea Verified 11/23/18 18:33 metronidazole [From Flagyl] AdvReac Intermediate Rash Verified 11/23/18 18:33 11/27/18 13:25 I have performed a brief in-person evaluation of this patient. The patient presents with a chief complaint of: RUQ pain worsens post-prandially Pertinent physical exam findings: RUQ tenderness with guarding I have ordered the following: abd w/u The patient will proceed to the ED for further evaluation. Discharge Disposition - Diagnosis Abdominal pain - Referrals - Patient Instructions - Post Discharge Activity
[2018-11-27 13:29] VITALS: BMI 27.1
[2018-11-27] MEDS ORDERED: ONDANSETRON 4 MG/2 ML VIAL ONE (16:21)
[2018-11-27] MEDS ORDERED: morphine SULFATE 4 MG/ML VIAL ONE (16:21)
[2018-11-27] MEDS ORDERED: SODIUM CHLORIDE 1,000 ML IV STA (16:27)
--- NOTE | 2018-11-27 16:40 | PDOC ---
History of Present Illness - General Chief Complaint: Pain Stated Complaint: ABD PAIN Time Seen by Provider: 11/27/18 13:24 History Source: Patient - History of Present Illness Timing/Duration: reports: getting worse Abdominal Pain Onset Location: reports: RUQ Past History - Past Medical History Allergies/Adverse Reactions: Allergies Allergy/AdvReac Type Severity Reaction Status Date / Time cephalexin monohydrate Allergy Severe Hives Verified 11/27/18 13:26 [From Keflex] Penicillins Allergy Severe Hives Verified 11/27/18 13:26 lactose [Lactose] Allergy Mild diarrhea Verified 11/27/18 13:26 metronidazole [From Flagyl] AdvReac Intermediate Rash Verified 11/27/18 13:26 Home Medications: Ambulatory Orders Fluticasone Prop 0.05% Nasal [Flonase -] 1 - 2 spray NS DAILY PRN 07/05/17 Calcium Carbonate [Calcium] 500 mg PO DAILY #30 tablet 09/28/17 Omeprazole 20 mg PO DAILY PRN #30 capsule.dr MATOS 1 11/23/17 Efavirenz/Emtricitab/Tenofovir [Atripla Tablet -] 1 tab PO DAILY #30 tab Ascorbic Acid [Vitamin C -] 500 mg PO DAILY #30 tablet 07/20/18 Cholecalciferol (Vitamin D3) [Vitamin D3] 5,000 unit PO DAILY #30 tab.rapdis Gabapentin [Neurontin] 600 mg PO TID #90 tablet 07/20/18 Vitamin B Complex 1 each PO DAILY #30 capsule 07/20/18 Acetaminophen 325 mg PO BID PRN #60 tablet 09/13/18 Multivitamin [Multiple Vitamins] 1 each PO DAILY #30 tablet 10/13/18 Cetirizine HCl [Zyrtec -] 10 mg PO DAILY #30 tablet 11/01/18 Oxycodone HCl/Acetaminophen [Percocet 10-325 mg Tablet] 1 each PO Q6H PRN #120 tablet MDD 4 11/15/18 Diphenhydramine [Benadryl Capsule -] 50 mg PO BID PRN #60 capsule 11/16/18 Anemia: No Asthma: No Cancer: No Cardiac Disorders: No CVA: No COPD: No CHF: No Dementia: No Diabetes: No GI Disorders: Yes (vomiting chronic) Disorders: No HTN: No Hypercholesterolemia: No Liver Disease: No Psychiatric Problems: No (Not before the surgery) Seizures: No Thyroid Disease: No - Surgical History Abdominal Surgery: Yes (benign tumor removed 2004) Appendectomy: No Cardiac Surgery: No Cholecystectomy: No Lung Surgery: No Neurologic Surgery: Yes (BACK SX - X 3; [id number]) Orthopedic Surgery: Yes (LEFT KNEE SURGERY TORN MENISCUS, back surgery, r shoulder surgery 2014) - Immunization History Immunization Up to Date: Yes - Suicide/Smoking/Psychosocial Hx Smoking Status: Yes Smoking History: Never smoked Have you smoked in the past 12 months: No Number of Cigarettes Smoked Daily: 1 If you are a former smoker, when did you quit?: 2016 Cigars Per Day: 0 'Breaking Loose' booklet given: 06/05/15 Hx Alcohol Use: No Drug/Substance Use Hx: No Substance Use Type: None Hx Substance Use Treatment: No Abd/GI Specific PMHX - Complaint Specific PMHX GERD: No GI Ulcer Disease: No Review of Systems - Review of Systems Constitutional: No: Chills, Fever Respiratory: No: Shortness of Breath Cardiac (ROS): No: Chest Pain ABD/GI: Yes: Nausea, Vomiting. No: Blood Streaked Bowels, Constipated, Diarrhea , Rectal Bleeding, Tarry Stools : No: Burning, Dysuria, Flank Pain, Hematuria *Physical Exam - Vital Signs Last Vital Signs Temp Pulse Resp BP Pulse Ox 98.5 F 73 18 101/47 L 98 11/27/18 13:26 11/27/18 13:26 11/27/18 13:26 11/27/18 13:26 11/27/18 13:26 - Physical Exam General Appearance: Yes: Appropriately Dressed, Moderate Distress HEENT: positive: Normal Voice Neck: positive: Supple Respiratory/Chest: positive: Lungs Clear, Normal Breath Sounds. negative: Respiratory Distress Cardiovascular: positive: Regular Rate, S1, S2 Gastrointestinal/Abdominal: positive: Normal Bowel Sounds, Tender (sig ttp to RUQ w/ +murpheys), Soft. negative: Distended, Guarding, Rebound Musculoskeletal: negative: CVA Tenderness Integumentary: positive: Dry, Warm Neurologic: positive: Fully Oriented, Alert, Normal Mood/Affect ED Treatment Course - LABORATORY CBC & Chemistry Diagram: 11/27/18 17:15 11/27/18 17:15 - RADIOLOGY Radiology Studies Ordered: Category Date Time Status CHEST X-RAY PORTABLE* [RAD] Stat Radiology 11/27/18 16:32 Ordered Medical Decision Making - Medical Decision Making 11/27/18 16:33 58 yo F, s/p gastric sleeve in 07/2017 (w/ Dr Warren), s/p dilation of sleeve w/ Dr Pike of GI > 1 month ago, HIV (on meds, unknown CD4, UD VL, no OIs), returns to ED for 2nd visit for severe RUQ pain. Also reports ~ 8 episodes of non-bilious, non-bloody vomitus today. No change in bowel movements, fever or chills. Patient was seen in ED for same 4 days ago. Had mild bump in LFTs with CT read as "mild to moderate gallbladder overdistention with possible minimal to mild gallbladder wall thickening". US read as distended GB w/ small stones and slightly distended CBD to 7mm. GI was c/s and states no need for ERCP per notes. Pt was discharged from ED w/ GI f/u but states pain never significantly subsided. Currently taking percocet w/ no relief PMD: [facility] Del Valle ([facility]) See exam Concern for acute mariah Mild transaminitis w/ distended GB and gallstones on US/CT 11/23/18, no e/o gastric sleeve complication on report Stable here but yoanna uncomfortable w/ + murpheys on exam -pain control -labs -US -surgery c/s -admit 11/27/18 17:31 Case d/w Dr Persaud of surgery, will f/u on labs and US. Will arrange admission at this time 11/27/18 18:43 Labs unremarkable. US read as gallstones as w/ no e/o acute mariah. CBD measures ~ 0.8-0.9 mm on US today w/ ?pancreatic ductal dilitation. Will place order for MRCP and consult with Dr. Pike of GI who dilated patient's gastric sleeve in the recent past. Dr Persaud aware of update, no surgical issue at this time. Case discussed with Dr. Evans and pt admitted 11/27/18 19:[address] Merchant who agrees with MRCP. Will continue to follow pt inhouse *DC/Admit/Observation/Transfer Diagnosis at time of Disposition: Abdominal pain Qualifiers: Abdominal location: epigastric Qualified Code(s): R10.13 - Epigastric pain - Discharge Dispostion Condition at time of disposition: Fair Decision to Admit order: Yes - Referrals - Patient Instructions - Post Discharge Activity
[2018-11-27 17:25] LABS: EPI CELLS 5.7 /HPF (0-5/HPF); HYALINE CASTS 14 /lpf (0-8); PH,URINE 6.5 (5.0-8.0); URINE APPEARANCE CLEAR; URINE BACTERIA 101.8 /hpf (NEGATIVE); URINE BILIRUBIN NEGATIVE (NEGATIVE); URINE COLOR YELLOW; URINE GLUCOSE (UA) NEGATIVE (NEGATIVE); URINE KETONE NEGATIVE (NEGATIVE); URINE LEUK ESTERASE TRACE (NEGATIVE); URINE NITRITE NEGATIVE (NEGATIVE); URINE PROTEIN NEGATIVE (NEGATIVE); URINE RBC 1 /hpf (0-4); URINE UROBILINOGEN 0.2 mg/dL (0.2-1.0); URINE WBC 1 /hpf (0-5)
[2018-11-27 17:30] LABS: BASO % 1.1 % (0-2.0); EOS % 3.3 % (0-4.5); HEMATOCRIT 34.7 % (32.4-45.2); HEMOGLOBIN 11.4 GM/dL (10.7-15.3); LYMPH % 51.9 % (8-40); MCH 30.2 pg (25.7-33.7); MCHC 32.9 g/dl (32.0-36.0); MEAN CELL VOLUME 91.7 fl (80-96); MEAN PLT VOLUME 9.9 fl (7.5-11.1); MONO % 6.8 % (3.8-10.2); NEUT % 36.9 % (42.8-82.8); PLATELET COUNT 215 K/MM3 (134-434); RBC 3.78 M/mm3 (3.60-5.2); RDW 15.5 % (11.6-15.6); WHITE BLOOD COUNT 3.4 K/mm3 (4.0-10.0)
[2018-11-27 17:57] LABS: ALBUMIN 3.6 g/dl (3.4-5.0); ALK PHOS 109 U/L (45-117); ANION GAP 3 MMOL/L (8-16); BILIRUBIN,TOTAL 0.2 mg/dL (0.2-1); BLOOD UREA NITROGEN 12.7 mg/dL (7-18); CALCIUM 8.7 mg/dL (8.5-10.1); CHLORIDE 108 mmol/L (98-107); CO2 30 mmol/L (21-32); CREATININE 0.7 mg/dL (0.55-1.3); GLUCOSE,RANDOM 83 mg/dL (74-106); LIPASE 87 U/L (73-393); POTASSIUM 4.7 mmol/L (3.5-5.1); SGOT/AST 20 U/L (15-37); SGPT/ALT 32 U/L (13-61); SODIUM 142 mmol/L (136-145); TOT PROT 6.7 g/dl (6.4-8.2)
[2018-11-27 18:19] LABS: INR 1.03 (0.83-1.09); PROTHROMBIN TIME (PATIENT) 12.1 SEC (9.7-13.0)
--- NOTE | 2018-11-27 19:47 | HP ---
Admitting History and Physical - Primary Care Physician PCP: Stephanie Barry - Admission History of Present Illness: Medical Decision Making - Medical Decision Making 11/27/18 16:33 58 yo F, s/p gastric sleeve in 07/2017 (w/ Dr Warren), s/p dilation of sleeve w/ Dr Pike of GI > 1 month ago, HIV (on meds, unknown CD4, UD VL, no OIs), returns to ED for 2nd visit for severe RUQ pain. Also reports ~ 8 episodes of non-bilious, non-bloody vomitus today. No change in bowel movements, fever or chills. Patient was seen in ED for same 4 days ago. Had mild bump in LFTs with CT read as "mild to moderate gallbladder overdistention with possible minimal to mild gallbladder wall thickening". US read as distended GB w/ small stones and slightly distended CBD to 7mm. GI was c/s and states no need for ERCP per notes. Pt was discharged from ED w/ GI f/u but states pain never significantly subsided. Currently taking percocet w/ no relief PMD: Dr Del Valle ([facility]) - Past Medical History ...LMP: 09/05/15 Infectious Disease: Yes: HIV Musculoskeletal: Yes: Chronic low back pain - Smoking History Smoking history: Never smoked Have you smoked in the past 12 months: No Aproximately how many cigarettes per day: 1 If you are a former smoker, when did you quit?: 2016 - Alcohol/Substance Use Hx Alcohol Use: No - Social History History of Recent Travel: No Home Medications - Allergies Allergies/Adverse Reactions: Allergies Allergy/AdvReac Type Severity Reaction Status Date / Time cephalexin monohydrate Allergy Severe Hives Verified 11/27/18 13:26 [From Keflex] Penicillins Allergy Severe Hives Verified 11/27/18 13:26 lactose [Lactose] Allergy Mild diarrhea Verified 11/27/18 13:26 metronidazole [From Flagyl] AdvReac Intermediate Rash Verified 11/27/18 13:26 - Home Medications Home Medications: Ambulatory Orders Fluticasone Prop 0.05% Nasal [Flonase -] 1 - 2 spray NS DAILY PRN 07/05/17 Calcium Carbonate [Calcium] 500 mg PO DAILY #30 tablet 09/28/17 Omeprazole 20 mg PO DAILY PRN #30 capsule.dr MATOS 1 11/23/17 Efavirenz/Emtricitab/Tenofovir [Atripla Tablet -] 1 tab PO DAILY #30 tab Ascorbic Acid [Vitamin C -] 500 mg PO DAILY #30 tablet 07/20/18 Cholecalciferol (Vitamin D3) [Vitamin D3] 5,000 unit PO DAILY #30 tab.rapdis Gabapentin [Neurontin] 600 mg PO TID #90 tablet 07/20/18 Vitamin B Complex 1 each PO DAILY #30 capsule 07/20/18 Acetaminophen 325 mg PO BID PRN #60 tablet 09/13/18 Multivitamin [Multiple Vitamins] 1 each PO DAILY #30 tablet 10/13/18 Cetirizine HCl [Zyrtec -] 10 mg PO DAILY #30 tablet 11/01/18 Oxycodone HCl/Acetaminophen [Percocet 10-325 mg Tablet] 1 each PO Q6H PRN #120 tablet MDD 4 11/15/18 Diphenhydramine [Benadryl Capsule -] 50 mg PO BID PRN #60 capsule 11/16/18 Family Disease History - Family Disease History Family Disease History: Diabetes: Father (a&w), Sister (2 both a&w), Other: Grandparent (unk), Father, Mother (dec'd age 41 yrs aids), Brother (none), Sister, Son (1 a&w), Daughter (2 a&w) Physical Examination Vital Signs: Vital Signs Temperature 98.5 F 11/27/18 13:26 Pulse Rate 73 11/27/18 13:26 Respiratory Rate 18 11/27/18 13:26 Blood Pressure 101/47 L 11/27/18 13:26 O2 Sat by Pulse Oximetry (%) 98 11/27/18 13:26 Constitutional: Yes: No Distress HENT: Yes: Atraumatic Neck: Yes: Supple Cardiovascular: Yes: Regular Rate and Rhythm Respiratory: Yes: CTA Bilaterally Gastrointestinal: Yes: Normal Bowel Sounds Extremities: Yes: WNL Neurological: Yes: Alert, Oriented Labs: CBC, BMP 11/27/18 17:15 11/27/18 17:15 Imaging - Results Ultrasound: Report Reviewed Problem List - Problems (1) Abdominal pain Assessment/Plan: prn pain meds gi and surgery consult Code(s): R10.9 - UNSPECIFIED ABDOMINAL PAIN Qualifiers: Abdominal location: epigastric Qualified Code(s): R10.13 - Epigastric pain (2) S/P bariatric surgery Code(s): Z98.84 - BARIATRIC SURGERY STATUS (3) COPD (chronic obstructive pulmonary disease) Code(s): J44.9 - CHRONIC OBSTRUCTIVE PULMONARY DISEASE, UNSPECIFIED (4) GERD (gastroesophageal reflux disease) Code(s): K21.9 - GASTRO-ESOPHAGEAL REFLUX DISEASE WITHOUT ESOPHAGITIS Qualifiers: Esophagitis presence: without esophagitis Qualified Code(s): K21.9 - Gastro -esophageal reflux disease without esophagitis (5) HIV antibody positive Code(s): Z21 - ASYMPTOMATIC HUMAN IMMUNODEFICIENCY VIRUS INFECTION STATUS (6) Hyperlipidemia Code(s): E78.5 - HYPERLIPIDEMIA, UNSPECIFIED Assessment/Plan Laboratory Tests 11/27/18 11/27/18 11/27/18 17:15 17:15 17:15 WBC 3.4 L RBC 3.78 Hgb 11.4 Hct 34.7 MCV 91.7 MCH 30.2 MCHC 32.9 RDW 15.5 Plt Count 215 MPV 9.9 Absolute Neuts (auto) 1.3 L Neutrophils % 36.9 L D Lymphocytes % 51.9 H D Monocytes % 6.8 Eosinophils % 3.3 D Basophils % 1.1 Nucleated RBC % 0 PT with INR INR Sodium 142 Potassium 4.7 Chloride 108 H Carbon Dioxide 30 Anion Gap 3 L BUN 12.7 Creatinine 0.7 Est GFR (CKD-EPI)AfAm 112.26 Est GFR (CKD-EPI)NonAf 96.86 Random Glucose 83 Calcium 8.7 Total Bilirubin 0.2 AST 20 ALT 32 Alkaline Phosphatase 109 Creatine Kinase 94 Troponin I < 0.02 Total Protein 6.7 Albumin 3.6 Lipase 87 Urine Color Yellow Urine Appearance Clear Urine pH 6.5 Ur Specific [place] 1.019 Urine Protein Negative Urine Glucose (UA) Negative Urine Ketones Negative Urine Blood Negative Urine Nitrite Negative Urine Bilirubin Negative Urine Urobilinogen 0.2 Ur Leukocyte Esterase Trace Urine WBC (Auto) 1 Urine RBC (Auto) 1 Urine Casts (Auto) 14 U Epithel Cells (Auto) 5.7 Urine Bacteria (Auto) 101.8 11/27/18 11/27/18 17:15 17:15 WBC RBC Hgb Hct MCV MCH MCHC RDW Plt Count MPV Absolute Neuts (auto) Neutrophils % Lymphocytes % Monocytes % Eosinophils % Basophils % Nucleated RBC % PT with INR 12.10 INR 1.03 Sodium Potassium Chloride Carbon Dioxide Anion Gap BUN Creatinine Est GFR (CKD-EPI)AfAm Est GFR (CKD-EPI)NonAf Random Glucose Calcium Total Bilirubin AST ALT Alkaline Phosphatase Creatine Kinase Cancelled Troponin I Cancelled Total Protein Albumin Lipase Urine Color Urine Appearance Urine pH Ur Specific Steward[place] Urine Protein Urine Glucose (UA) Urine Ketones Urine Blood Urine Nitrite Urine Bilirubin Urine Urobilinogen Ur Leukocyte Esterase Urine WBC (Auto) Urine RBC (Auto) Urine Casts (Auto) U Epithel Cells (Auto) Urine Bacteria (Auto) Active Medications Generic Name Dose Route Start Last Admin Trade Name Freq PRN Reason Stop Dose Admin Heparin Sodium (Porcine) 5,000 unit 11/27/18 22:00 11/29/18 10:53 Heparin - SQ 5,000 unit BID AVINASH Administration Sodium Chloride 1,000 mls @ 75 mls/hr 11/27/18 20:00 11/29/18 15:00 Normal Saline - IV 75 mls/hr ASDIR AVINASH Administration Metoclopramide HCl 10 mg 11/29/18 14:00 11/29/18 14:50 Reglan Injection - IVPUSH 10 mg Q8H AVINASH Administration Ondansetron HCl 4 mg 11/29/18 12:50 11/29/18 13:20 Zofran Injection IVPUSH 4 mg Q6H PRN Administration NAUSEA AND/OR VOMITING Oxycodone/Acetaminophen 2 combo 11/30/18 00:00 Percocet 5/325 - PO Q6HPO AVINASH Polyethylene Glycol 17 gm 11/29/18 13:00 11/29/18 14:02 Miralax (For Daily Use) - PO 17 grams BID AVINASH Administration
--- NOTE | 2018-11-27 19:50 | HP ---
Admitting History and Physical - Primary Care Physician PCP: Stephanie Barry - Admission History of Present Illness: 58 yo F, s/p gastric sleeve in 07/2017 (w/ Dr Warren), s/p dilation of sleeve w/ Dr Pike of GI > 1 month ago, HIV (on meds, unknown CD4, UD VL, no OIs), returns to ED for 2nd visit for severe RUQ pain. Also reports ~ 8 episodes of non-bilious, non-bloody vomitus today. No change in bowel movements, fever or chills. Patient was seen in ED for same 4 days ago. Had mild bump in LFTs with CT read as "mild to moderate gallbladder overdistention with possible minimal to mild gallbladder wall thickening". US read as distended GB w/ small stones and slightly distended CBD to 7mm. GI was c/s and states no need for ERCP per notes. Pt was discharged from ED w/ GI f/u but states pain never significantly subsided. Currently taking percocet w/ no relief - Past Medical History ...LMP: 09/05/15 Infectious Disease: Yes: HIV Musculoskeletal: Yes: Chronic low back pain - Smoking History Smoking history: Never smoked Have you smoked in the past 12 months: No Aproximately how many cigarettes per day: 1 If you are a former smoker, when did you quit?: 2016 - Alcohol/Substance Use Hx Alcohol Use: No - Social History History of Recent Travel: No Home Medications - Allergies Allergies/Adverse Reactions: Allergies Allergy/AdvReac Type Severity Reaction Status Date / Time cephalexin monohydrate Allergy Severe Hives Verified 11/27/18 13:26 [From Keflex] Penicillins Allergy Severe Hives Verified 11/27/18 13:26 lactose [Lactose] Allergy Mild diarrhea Verified 11/27/18 13:26 metronidazole [From Flagyl] AdvReac Intermediate Rash Verified 11/27/18 13:26 - Home Medications Home Medications: Ambulatory Orders Fluticasone Prop 0.05% Nasal [Flonase -] 1 - 2 spray NS DAILY PRN 07/05/17 Calcium Carbonate [Calcium] 500 mg PO DAILY #30 tablet 09/28/17 Omeprazole 20 mg PO DAILY PRN #30 capsule.dr MATOS 1 11/23/17 Efavirenz/Emtricitab/Tenofovir [Atripla Tablet -] 1 tab PO DAILY #30 tab Ascorbic Acid [Vitamin C -] 500 mg PO DAILY #30 tablet 07/20/18 Cholecalciferol (Vitamin D3) [Vitamin D3] 5,000 unit PO DAILY #30 tab.rapdis Gabapentin [Neurontin] 600 mg PO TID #90 tablet 07/20/18 Vitamin B Complex 1 each PO DAILY #30 capsule 07/20/18 Acetaminophen 325 mg PO BID PRN #60 tablet 09/13/18 Multivitamin [Multiple Vitamins] 1 each PO DAILY #30 tablet 10/13/18 Cetirizine HCl [Zyrtec -] 10 mg PO DAILY #30 tablet 11/01/18 Oxycodone HCl/Acetaminophen [Percocet 10-325 mg Tablet] 1 each PO Q6H PRN #120 tablet MDD 4 11/15/18 Diphenhydramine [Benadryl Capsule -] 50 mg PO BID PRN #60 capsule 11/16/18 Family Disease History - Family Disease History Family Disease History: Diabetes: Father (a&w), Sister (2 both a&w), Other: Grandparent (unk), Father, Mother (dec'd age 41 yrs aids), Brother (none), Sister, Son (1 a&w), Daughter (2 a&w) Physical Examination Vital Signs: Vital Signs Temperature 98.5 F 11/27/18 13:26 Pulse Rate 73 11/27/18 13:26 Respiratory Rate 18 11/27/18 13:26 Blood Pressure 101/47 L 11/27/18 13:26 O2 Sat by Pulse Oximetry (%) 98 11/27/18 13:26 Labs: CBC, BMP 11/27/18 17:15 11/27/18 17:15 Problem List - Problems (1) Abdominal pain Code(s): R10.9 - UNSPECIFIED ABDOMINAL PAIN Qualifiers: Abdominal location: epigastric Qualified Code(s): R10.13 - Epigastric pain (2) S/P bariatric surgery Code(s): Z98.84 - BARIATRIC SURGERY STATUS (3) COPD (chronic obstructive pulmonary disease) Code(s): J44.9 - CHRONIC OBSTRUCTIVE PULMONARY DISEASE, UNSPECIFIED (4) GERD (gastroesophageal reflux disease) Code(s): K21.9 - GASTRO-ESOPHAGEAL REFLUX DISEASE WITHOUT ESOPHAGITIS Qualifiers: Esophagitis presence: without esophagitis Qualified Code(s): K21.9 - Gastro -esophageal reflux disease without esophagitis (5) HIV antibody positive Code(s): Z21 - ASYMPTOMATIC HUMAN IMMUNODEFICIENCY VIRUS INFECTION STATUS (6) Hyperlipidemia Code(s): E78.5 - HYPERLIPIDEMIA, UNSPECIFIED
--- NOTE | 2018-11-27 20:41 | CONSULT ---
Consult Consult Specialty:: General Surgery Referred by:: Cherelle Jennings Reason for Consultation:: RUQ pain, gallstones, chronic N/V - History of Present Illness Chief Complaint: RUQ pain, N/V History of Present Illness: 58yo F with HIV, h/o morbid obesity s/p lap gastric sleeve last year (by Dr. Warren; has lost 140+ lbs), who has had chronic N/V for months and more recently RUQ/epigastric pain radiating laterally and around to right back, being worked up by GI and has had two endoscopic balloon dilations of her gastric sleeve, the last just under a month ago by Dr. Pike. She presented to ER 4d ago with an acute episode of pain that made it difficult for her to even breathe, and has been vomiting up most everything she tries to eat or drink. At that time, she had US and CT showing gallstones, mildly dilated CBD at 7mm, mildly elevated AST/ALT/alk phos, normal wbc and bili and lipase. ER spoke with GI, who felt ERCP was not indicated; she felt better and was discharged home to f/u with GI. The pain has persisted, as has the N/V, and she returned today for reevaluation with worsening pain. Labs today in ER show decreased LFTs to normal , wbc down from 4.4 to 3.4, normal lipase still, and repeat US shows similar findings but with CBD now 8-9mm dilated and pancreatic duct also noted as mildly dilated. She has been given fluids and pain meds, and will be admitted to medicine. Surgery is asked to assess. She is seen and examined in ER, awaiting MRCP, and gives the above history. She had two bites of turkey breast and two bites of avocado the last time she had sudden onset of severe pain after eating, associated with vomiting as well. She does follow a bariatric type diet, with attempts at small, frequent meals, but mostly vomits up everything. She takes her HIV med in the morning with a teaspoon of water and waits an hour before eating, to try and get it to stay down, since eating causes emesis. She tends not to want to eat because of the pain. - History Source History Provided By: Patient Limitations to Obtaining History: No Limitations - Past Medical History Gastrointestinal: Yes: Other (morbid obesity (lost 140+ lbs after gastric sleeve 2/18); tight gastric sleeve - has had dilations x2) Hepatobiliary: Yes: Cholelithiasis Reproductive: Yes: Ectopic (lost tube, can't remember which but thinks it was right) ...LMP: 09/05/15 Infectious Disease: Yes: HIV (undetectable viral load per pt, stable 16 yrs) Psych: Yes: Anxiety (gets anxiety attacks) Musculoskeletal: Yes: Chronic low back pain - Past Surgical History Past Surgical History: Yes: Bariatric Surgery (laparoscopic gastric sleeve 07/24 ([facility])), Laminectomy (multiple spinal surgery lumbar; also had spinal stimulator , then removal), Upper Endoscopy (with dilation of gastric sleeve x2, last ) Additional Surgical History: salpingectomy for ectopic via Pfannenstiel - Alcohol/Substance Use Hx Alcohol Use: No (quit 13 yrs ago, social use) History of Substance Use: reports: None (no illicits), Prescription (uses Percocet 10/325, four daily for back pain) - Smoking History Smoking history: Former smoker (almost 2ppd x 35 yrs) Have you smoked in the past 12 months: No If you are a former smoker, when did you quit?: ~7 yrs ago - Social History ADL: Independent History of Recent Travel: No Home Medications - Allergies Allergies/Adverse Reactions: Allergies Allergy/AdvReac Type Severity Reaction Status Date / Time cephalexin monohydrate Allergy Severe Hives Verified 11/27/18 13:26 [From Keflex] Penicillins Allergy Severe Hives Verified 11/27/18 13:26 lactose [Lactose] Allergy Mild diarrhea Verified 11/27/18 13:26 metronidazole [From Flagyl] AdvReac Intermediate Rash Verified 11/27/18 13:26 - Home Medications Home Medications: Ambulatory Orders Fluticasone Prop 0.05% Nasal [Flonase -] 1 - 2 spray NS DAILY PRN 07/05/17 Calcium Carbonate [Calcium] 500 mg PO DAILY #30 tablet 09/28/17 Omeprazole 20 mg PO DAILY PRN #30 capsule.dr MATOS 1 11/23/17 Efavirenz/Emtricitab/Tenofovir [Atripla Tablet -] 1 tab PO DAILY #30 tab Ascorbic Acid [Vitamin C -] 500 mg PO DAILY #30 tablet 07/20/18 Cholecalciferol (Vitamin D3) [Vitamin D3] 5,000 unit PO DAILY #30 tab.rapdis Gabapentin [Neurontin] 600 mg PO TID #90 tablet 07/20/18 Vitamin B Complex 1 each PO DAILY #30 capsule 07/20/18 Acetaminophen 325 mg PO BID PRN #60 tablet 09/13/18 Multivitamin [Multiple Vitamins] 1 each PO DAILY #30 tablet 10/13/18 Cetirizine HCl [Zyrtec -] 10 mg PO DAILY #30 tablet 11/01/18 Oxycodone HCl/Acetaminophen [Percocet 10-325 mg Tablet] 1 each PO Q6H PRN #120 tablet MDD 4 11/15/18 Diphenhydramine [Benadryl Capsule -] 50 mg PO BID PRN #60 capsule 11/16/18 Home Medications (free text): PT DENIES PENICILLIN ALLERGY - has taken amoxicillin/pcn in past. KEFLEX gives hives; FLAGYL hives and throat swelling Family Disease History - Family Disease History Family Disease History: Diabetes: Father (a&w), Sister (2 both a&w), Other: Grandparent (unk), Father, Mother (asthma; dec'd age 41 yrs aids), Brother (none ), Sister, Son (1 a&w), Daughter (2 a&w) Other Family History: diabetes in many family members Review of Systems - Review of Systems Constitutional: denies: Chills, Fever (does get "hot flashes" with pain when it comes) Eyes: reports: Other (glasses for reading). denies: Recent Change in Vision HENT: denies: Difficult Swallowing, Throat Pain Neck: denies: Swollen Glands, Tenderness Cardiovascular: denies: Chest Pain, Palpitations Respiratory: denies: Cough, SOB Gastrointestinal: reports: Abdominal Pain (with hpi), Constipation (no BM since last Tuesday/see hpi), Diarrhea (last Tuesday), Nausea (see hpi), Vomiting (see hpi). denies: Vomiting Blood Genitourinary: denies: Burning, Dysuria Musculoskeletal: reports: Back Pain (chronic). denies: Joint Pain, Muscle Pain Integumentary: denies: Change in Color, Rash Neurological: denies: Dizziness, Headache, Unsteady Gait (sometimes uses cane for ambulating) Endocrine: reports: Other (lost 140 lbs after bariatric surgery) Psychiatric: reports: Anxiety (sometimes gets anxiety attacks). denies: Depression Physical Exam Vital Signs: Vital Signs Temperature 98.5 F 11/27/18 13:26 Pulse Rate 73 11/27/18 13:26 Respiratory Rate 18 11/27/18 13:26 Blood Pressure 101/47 L 11/27/18 13:26 O2 Sat by Pulse Oximetry (%) 98 11/27/18 13:26 Constitutional: Yes: Well Nourished, No Distress, Calm Eyes: Yes: Conjunctiva Clear, EOM Intact. No: Sclera Icterus HENT: Yes: Atraumatic, Normocephalic Neck: Yes: Supple, Trachea Midline Cardiovascular: Yes: Regular Rate and Rhythm Respiratory: Yes: Regular, CTA Bilaterally Gastrointestinal: Yes: Normal Bowel Sounds, Soft, Tenderness (RUQ, also referred from LUQ and RLQ, tender around right lateral abd toward back, also epigastric and periumbilical (refers toward RUQ)), Tenderness, Epigastrium. No : Distention, Tenderness, Rebound (no guarding or rebound) ...Rectal Exam: Yes: Deferred Renal/: Yes: CVA Tenderness - Right (mild). No: CVA Tenderness - Left Musculoskeletal: No: Back Pain (no direct tenderness), Joint Stiffness, Joint Swelling Extremities: No: Cool, Cyanosis Edema: No Peripheral Pulses WNL: Yes Integumentary: Yes: Tattoos. No: Jaundice, Rash Neurological: Yes: Alert, Oriented, Numbness (first few toes on right foot and parts of right hip have some numbness since back surgery (per pt, some of the hardware impinged on a nerve)) Psychiatric: Yes: Alert, Oriented Labs: CBC, BMP 11/27/18 17:15 11/27/18 17:15 CMP Sodium 142 mmol/L (136-145) 11/27/18 17:15 Potassium 4.7 mmol/L (3.5-5.1) 11/27/18 17:15 Chloride 108 mmol/L (98-107) H 11/27/18 17:15 Carbon Dioxide 30 mmol/L (21-32) 11/27/18 17:15 Anion Gap 3 MMOL/L (8-16) L 11/27/18 17:15 BUN 12.7 mg/dL (7-18) 11/27/18 17:15 Creatinine 0.7 mg/dL (0.55-1.3) 11/27/18 17:15 Est GFR (CKD-EPI)AfAm 112.26 11/27/18 17:15 Est GFR (CKD-EPI)NonAf 96.86 11/27/18 17:15 Random Glucose 83 mg/dL (74-106) 11/27/18 17:15 Calcium 8.7 mg/dL (8.5-10.1) 11/27/18 17:15 Total Bilirubin 0.2 mg/dL (0.2-1) 11/27/18 17:15 AST 20 U/L (15-37) 11/27/18 17:15 ALT 32 U/L (13-61) 11/27/18 17:15 Alkaline Phosphatase 109 U/L (45-117) 11/27/18 17:15 Creatine Kinase 94 U/L (26-192) 11/27/18 17:15 Troponin I < 0.02 ng/ml (0.00-0.05) 11/27/18 17:15 Total Protein 6.7 g/dl (6.4-8.2) 11/27/18 17:15 Albumin 3.6 g/dl (3.4-5.0) 11/27/18 17:15 Lipase 87 U/L (73-393) 11/27/18 17:15 INR, PTT INR 1.03 (0.83-1.09) 11/27/18 17:15 Urine Test Results Urine Color Yellow 11/27/18 17:15 Urine Appearance Clear 11/27/18 17:15 Urine pH 6.5 (5.0-8.0) 11/27/18 17:15 Ur Specific [place] 1.019 (1.010-1.035) 11/27/18 17:15 Urine Protein Negative (NEGATIVE) 11/27/18 17:15 Urine Glucose (UA) Negative (NEGATIVE) 11/27/18 17:15 Urine Ketones Negative (NEGATIVE) 11/27/18 17:15 Urine Blood Negative (NEGATIVE) 11/27/18 17:15 Urine Nitrite Negative (NEGATIVE) 11/27/18 17:15 Urine Bilirubin Negative (NEGATIVE) 11/27/18 17:15 Ur Leukocyte Esterase Trace (NEGATIVE) 11/27/18 17:15 wbc from 4.4 few days ago LFTs down to normal from few days ago - AST/ALT/alk phos were mildly elevated then, not bili lipase still normal Imaging - Results Cat Scan: Report Reviewed, Image Reviewed (images reviewed from 4d ago scan - pancreatic duct visible, mildly dilated?) Ultrasound: Report Reviewed, Image Reviewed (images reviewed - from 4d ago and today - gallstones with distended gallbladder, minimal if any wall thickening, no pericholecystic fluid; cbd was almost 7mm 4d ago, now 8-9mm, and pancreatic duct mildly dilated) MRI: Pending Problem List - Problems (1) Calculus of gallbladder w/o mention of cholecystitis or obstruction Assessment/Plan: admitted to medicine possibly biliary colic with RUQ pain and symptoms gallbladder may not be the only reason for her pain and vomiting NPO/IVF except essential meds would continue some narcotic pain meds prn to address her baseline opioid use and likely physiologic dependence trend labs agree with MRCP, pending GI consultation - known to Dr. Pike (has appt pending in system for 11/30) will follow up in am pending MRI results Code(s): K80.20 - CALCULUS OF GALLBLADDER W/O CHOLECYSTITIS W/O OBSTRUCTION Qualifiers: Cholecystitis presence: without cholecystitis Biliary obstruction: without biliary obstruction Qualified Code(s): K80.20 - Calculus of gallbladder without cholecystitis without obstruction (2) Common bile duct dilation Assessment/Plan: MRCP pending pancreatic duct also dilated Code(s): K83.8 - OTHER SPECIFIED DISEASES OF BILIARY TRACT (3) Nausea & vomiting Assessment/Plan: zofran prn Code(s): R11.2 - NAUSEA WITH VOMITING, UNSPECIFIED Qualifiers: Vomiting type: unspecified Vomiting Intractability: intractable Qualified Code(s): R11.2 - Nausea with vomiting, unspecified (4) RUQ pain Code(s): R10.11 - RIGHT UPPER QUADRANT PAIN (5) Constipation due to opioid therapy Assessment/Plan: pt has been using Miralax since ER visit few days ago, and bisacodyl po would give a dose of senna 2 tabs tonight NPO/IVF as above except essential meds consider dulcolax suppository as well Code(s): K59.03 - DRUG INDUCED CONSTIPATION; T40.2X5A - ADVERSE EFFECT OF OTHER OPIOIDS, INITIAL ENCOUNTER (6) S/P bariatric surgery Assessment/Plan: with "tight gastric sleeve" s/p endoscopic balloon dilation GI consultation may be contributing to chronic N/V, ?pain see above Code(s): Z98.84 - BARIATRIC SURGERY STATUS (7) Chronic use of opiate drug for therapeutic purpose Assessment/Plan: will need to continue some opioid use to address baseline pain needs agree with morphine IV prn for now Code(s): Z79.891 - JAIL (CURRENT) USE OF OPIATE ANALGESIC (8) HIV antibody positive Assessment/Plan: would continue home med consider ID consult if needed to continue medication Code(s): Z21 - ASYMPTOMATIC HUMAN IMMUNODEFICIENCY VIRUS INFECTION STATUS
[2018-11-27] MEDS ORDERED: HEPARIN NA (PORCINE) 5,000 UNITS/ML 1ML VIAL ONE (20:55)
[2018-11-27] MEDS ORDERED: MORPHINE SULFATE 2 MG/ML VIAL ONE (20:55)
[2018-11-27] MEDS: SODIUM CHLORIDE 1,000 ML IV SCH (21:00)
[2018-11-27] MEDS: HEPARIN NA (PORCINE) 5,000 UNITS/ML 1ML VIAL SQ SCH (21:03)
[2018-11-27] MEDS: MORPHINE SULFATE 2 MG/ML VIAL IVPUSH PRN (21:03)
[2018-11-28 06:14] LABS: EOS % 3.1 % (0-4.5); HEMATOCRIT 30.6 % (32.4-45.2); HEMOGLOBIN 10.3 GM/dL (10.7-15.3); LYMPH % 67.4 % (8-40); MCH 30.9 pg (25.7-33.7); MCHC 33.8 g/dl (32.0-36.0); MEAN CELL VOLUME 91.3 fl (80-96); MEAN PLT VOLUME 9.4 fl (7.5-11.1); MONO % 6.9 % (3.8-10.2); NEUT % 21.6 % (42.8-82.8); PLATELET COUNT 173 K/MM3 (134-434); RBC 3.35 M/mm3 (3.60-5.2); RDW 15.1 % (11.6-15.6); WHITE BLOOD COUNT 3.5 K/mm3 (4.0-10.0)
[2018-11-28] MEDS ORDERED: MORPHINE SULFATE 2 MG/ML VIAL ONE (09:02)
[2018-11-28] MEDS: MORPHINE SULFATE 2 MG/ML VIAL IVPUSH PRN ×3 (09:14→20:55)
--- NOTE | 2018-11-28 10:34 | EKG ---
Test Reason : Blood Pressure : / mmHG Vent. Rate : 051 BPM Atrial Rate : 051 BPM P-R Int : 158 ms QRS Dur : 090 ms QT Int : 448 ms P-R-T Axes : 011 062 050 degrees QTc Int : 412 ms SINUS BRADYCARDIA OTHERWISE NORMAL ECG WHEN COMPARED WITH ECG OF 24-JUN-2017 10:47, NO SIGNIFICANT CHANGE WAS FOUND Confirmed by Pramod Flores MD ([id number]) on 11/28/2018 10:34:31 AM Referred By: Confirmed By:Pramod Flores MD
--- NOTE | 2018-11-28 11:10 | CON.GI ---
Consult Consult Specialty:: GI Reason for Consultation:: Abd pain, vomiting - History of Present Illness Chief Complaint: Abd pain, vomiting History of Present Illness: Pt known to me as outpatient. She has had recurrent vomiting since her gastric sleeve procedure. Her sleeve was dilated to 30 mm diameter at the end of last month but she still persisted in vomiting and continued to lose weight, although she is not underweight. Over the past few days, though, she developed a new symptom of pain the R side of the abdomen with radiation to her back. When she came to the ER on 11/24 she had modest elevation of the AST/ALT without jaundice, fever, or elevated WBC. Her pain has persisted and investigation has shown gallstones with trace pericholecystic fluid. - History Source History Provided By: Patient, Medical Record Limitations to Obtaining History: No Limitations - Past Medical History Gastrointestinal: Yes: Other (morbid obesity (lost 140+ lbs after gastric sleeve 07/24); tight gastric sleeve - has had dilations x2) Hepatobiliary: Yes: Cholelithiasis ...LMP: 09/05/15 Infectious Disease: Yes: HIV (undetectable viral load per pt, stable 16 yrs) Psych: Yes: Anxiety (gets anxiety attacks) Musculoskeletal: Yes: Chronic low back pain - Past Surgical History Past Surgical History: Yes: Bariatric Surgery (laparoscopic gastric sleeve 07/24 ([facility])), Laminectomy (multiple spinal surgery lumbar; also had spinal stimulator , then removal), Upper Endoscopy (with dilation of gastric sleeve x2, last ) Additional Surgical History: salpingectomy for ectopic via Pfannenstiel - Alcohol/Substance Use Hx Alcohol Use: No (quit 13 yrs ago, social use) History of Substance Use: reports: None (no illicits), Prescription (uses Percocet 10/325, four daily for back pain) - Smoking History Smoking history: Former smoker Have you smoked in the past 12 months: No Aproximately how many cigarettes per day: 1 If you are a former smoker, when did you quit?: ~7 yrs ago - Social History ADL: Independent History of Recent Travel: No Home Medications - Allergies Allergies/Adverse Reactions: Allergies Allergy/AdvReac Type Severity Reaction Status Date / Time cephalexin monohydrate Allergy Severe Hives Verified 11/27/18 13:26 [From Keflex] Penicillins Allergy Severe Hives Verified 11/27/18 13:26 lactose [Lactose] Allergy Mild diarrhea Verified 11/27/18 13:26 metronidazole [From Flagyl] AdvReac Intermediate Rash Verified 11/27/18 13:26 - Home Medications Home Medications: Ambulatory Orders Fluticasone Prop 0.05% Nasal [Flonase -] 1 - 2 spray NS DAILY PRN 07/05/17 Calcium Carbonate [Calcium] 500 mg PO DAILY #30 tablet 09/28/17 Omeprazole 20 mg PO DAILY PRN #30 capsule. MDD 1 11/23/17 Efavirenz/Emtricitab/Tenofovir [Atripla Tablet -] 1 tab PO DAILY #30 tab Ascorbic Acid [Vitamin C -] 500 mg PO DAILY #30 tablet 07/20/18 Cholecalciferol (Vitamin D3) [Vitamin D3] 5,000 unit PO DAILY #30 tab.rapdis Gabapentin [Neurontin] 600 mg PO TID #90 tablet 07/20/18 Vitamin B Complex 1 each PO DAILY #30 capsule 07/20/18 Acetaminophen 325 mg PO BID PRN #60 tablet 09/13/18 Multivitamin [Multiple Vitamins] 1 each PO DAILY #30 tablet 10/13/18 Cetirizine HCl [Zyrtec -] 10 mg PO DAILY #30 tablet 11/01/18 Oxycodone HCl/Acetaminophen [Percocet 10-325 mg Tablet] 1 each PO Q6H PRN #120 tablet MDD 4 11/15/18 Diphenhydramine [Benadryl Capsule -] 50 mg PO BID PRN #60 capsule 11/16/18 Family Disease History - Family Disease History Family Disease History: Diabetes: Father (a&w), Sister (2 both a&w), Other: Grandparent (unk), Father, Mother (asthma; dec'd age 41 yrs aids), Brother (none ), Sister, Son (1 a&w), Daughter (2 a&w) Other Family History: diabetes in many family members Physical Exam-GI Vital Signs: Vital Signs Temperature 98.2 F 11/28/18 09:00 Pulse Rate 52 L 11/28/18 09:00 Respiratory Rate 20 11/28/18 10:36 Blood Pressure 93/58 L 11/28/18 09:00 O2 Sat by Pulse Oximetry (%) 97 11/28/18 10:36 Labs: CBC, BMP 11/28/18 05:56 11/27/18 17:15 INR, PTT INR 1.03 (0.83-1.09) 11/27/18 17:15 Imaging - Results Ultrasound: Report Reviewed, Image Reviewed MRI: Report Reviewed, Image Reviewed Problem List - Problems (1) Abdominal pain Code(s): R10.9 - UNSPECIFIED ABDOMINAL PAIN Qualifiers: Abdominal location: epigastric Qualified Code(s): R10.13 - Epigastric pain (2) Calculus of gallbladder w/o mention of cholecystitis or obstruction Code(s): K80.20 - CALCULUS OF GALLBLADDER W/O CHOLECYSTITIS W/O OBSTRUCTION Qualifiers: Cholecystitis presence: without cholecystitis Biliary obstruction: without biliary obstruction Qualified Code(s): K80.20 - Calculus of gallbladder without cholecystitis without obstruction Assessment/Plan I believe she has 2 separate but intersecting GI issues: 1) recurrent vomiting after her sleeve procedure, the cause of which is still unclear. An upper GI series did not show any obstruction and the sleeve was dilated to 30 mm which I believe should be adequate if she chews her food and eats small meals as recommended. Possibly she had vagal nerve injury and very delayed gastric emptying. I had ordered a gastric emptying study to be done later this week, but she needs to be off narcotics before the study, otherwise she will have delayed gastric empyting secondary to narcotics.' 2) gallstones with biliary colic. Rapid weight loss is one of the causes of gallstone disease. I explained this to Ms Bolden and explained also that her gallstones have not been the cause of her recurrent vomiting but are likely what has been bothering her over the past few days. She is amenable to a cholecystectomy.
[2018-11-28] MEDS: HEPARIN NA (PORCINE) 5,000 UNITS/ML 1ML VIAL SQ SCH ×2 (11:26→22:11)
[2018-11-28 11:48] LABS: ALBUMIN 3.1 g/dl (3.4-5.0); BILIRUBIN,TOTAL 0.2 mg/dL (0.2-1); BLOOD UREA NITROGEN 10.2 mg/dL (7-18); CALCIUM 8.5 mg/dL (8.5-10.1); CREATININE 0.6 mg/dL (0.55-1.3); POTASSIUM 4.2 mmol/L (3.5-5.1); TOT PROT 5.5 g/dl (6.4-8.2)
[2018-11-28 13:02] LABS: ANISOCYTOSIS 1+; MACROCYTOSIS 0; PLATELET ESTIMATE NORMAL
--- NOTE | 2018-11-28 13:22 | CON.ID ---
Consult Consult Specialty:: infectious diseases - Past Medical History Gastrointestinal: Yes: Other (morbid obesity (lost 140+ lbs after gastric sleeve 07/24); tight gastric sleeve - has had dilations x2) Hepatobiliary: Yes: Cholelithiasis ...LMP: 09/05/15 Infectious Disease: Yes: HIV (undetectable viral load per pt, stable 16 yrs) Psych: Yes: Anxiety (gets anxiety attacks) Musculoskeletal: Yes: Chronic low back pain - Past Surgical History Past Surgical History: Yes: Bariatric Surgery (laparoscopic gastric sleeve 07/24 ([facility])), Laminectomy (multiple spinal surgery lumbar; also had spinal stimulator , then removal), Upper Endoscopy (with dilation of gastric sleeve x2, last ) Additional Surgical History: salpingectomy for ectopic via Pfannenstiel - Alcohol/Substance Use Hx Alcohol Use: No (quit 13 yrs ago, social use) History of Substance Use: reports: None (no illicits), Prescription (uses Percocet 10/325, four daily for back pain) - Smoking History Smoking history: Former smoker Have you smoked in the past 12 months: No Aproximately how many cigarettes per day: 1 If you are a former smoker, when did you quit?: ~7 yrs ago - Social History ADL: Independent History of Recent Travel: No Home Medications - Allergies Allergies/Adverse Reactions: Allergies Allergy/AdvReac Type Severity Reaction Status Date / Time cephalexin monohydrate Allergy Severe Hives Verified 11/27/18 13:26 [From Keflex] Penicillins Allergy Severe Hives Verified 11/27/18 13:26 lactose [Lactose] Allergy Mild diarrhea Verified 11/27/18 13:26 metronidazole [From Flagyl] AdvReac Intermediate Rash Verified 11/27/18 13:26 - Home Medications Home Medications: Ambulatory Orders Fluticasone Prop 0.05% Nasal [Flonase -] 1 - 2 spray NS DAILY PRN 07/05/17 Calcium Carbonate [Calcium] 500 mg PO DAILY #30 tablet 09/28/17 Omeprazole 20 mg PO DAILY PRN #30 capsule.dr MATOS 1 11/23/17 Efavirenz/Emtricitab/Tenofovir [Atripla Tablet -] 1 tab PO DAILY #30 tab Ascorbic Acid [Vitamin C -] 500 mg PO DAILY #30 tablet 07/20/18 Cholecalciferol (Vitamin D3) [Vitamin D3] 5,000 unit PO DAILY #30 tab.rapdis Gabapentin [Neurontin] 600 mg PO TID #90 tablet 07/20/18 Vitamin B Complex 1 each PO DAILY #30 capsule 07/20/18 Acetaminophen 325 mg PO BID PRN #60 tablet 09/13/18 Multivitamin [Multiple Vitamins] 1 each PO DAILY #30 tablet 10/13/18 Cetirizine HCl [Zyrtec -] 10 mg PO DAILY #30 tablet 11/01/18 Oxycodone HCl/Acetaminophen [Percocet 10-325 mg Tablet] 1 each PO Q6H PRN #120 tablet MDD 4 11/15/18 Diphenhydramine [Benadryl Capsule -] 50 mg PO BID PRN #60 capsule 11/16/18 Family Disease History - Family Disease History Family Disease History: Diabetes: Father (a&w), Sister (2 both a&w), Other: Grandparent (unk), Father, Mother (asthma; dec'd age 41 yrs aids), Brother (none ), Sister, Son (1 a&w), Daughter (2 a&w) Other Family History: diabetes in many family members Physical Exam Vital Signs: Vital Signs Temperature 98.2 F 11/28/18 09:00 Pulse Rate 52 L 11/28/18 09:00 Respiratory Rate 20 11/28/18 10:36 Blood Pressure 93/58 L 11/28/18 09:00 O2 Sat by Pulse Oximetry (%) 97 11/28/18 10:36 Labs: CBC, BMP 11/28/18 05:56 11/28/18 10:55
--- NOTE | 2018-11-28 15:43 | PN ---
Progress Note, Physician - Current Medication List Current Medications: Active Medications Heparin Sodium (Porcine) (Heparin -) 5,000 unit SQ BID [facility] Last Admin: 11/28/18 11:26 Dose: 5,000 unit Sodium Chloride (Normal Saline -) 1,000 mls @ 75 mls/hr IV ASDIR AVINASH Last Admin: 11/27/18 21:00 Dose: 75 mls/hr Morphine Sulfate (Morphine Sulfate) 2 mg IVPUSH Q4H PRN PRN Reason: PAIN LEVEL 4 - 6 Last Admin: 11/28/18 09:14 Dose: 2 mg - Objective Vital Signs: Vital Signs Temperature 98.2 F 11/28/18 09:00 Pulse Rate 52 L 11/28/18 09:00 Respiratory Rate 20 11/28/18 10:36 Blood Pressure 93/58 L 11/28/18 09:00 O2 Sat by Pulse Oximetry (%) 97 11/28/18 10:36 Constitutional: Yes: No Distress HENT: Yes: Atraumatic Neck: Yes: Supple Cardiovascular: Yes: Regular Rate and Rhythm Respiratory: Yes: CTA Bilaterally Gastrointestinal: Yes: Normal Bowel Sounds Extremities: Yes: WNL Edema: No Peripheral Pulses WNL: Yes Neurological: Yes: Alert, Oriented Labs: CBC, BMP 11/28/18 05:56 11/28/18 10:55 INR, PTT INR 1.03 (0.83-1.09) 11/27/18 17:15 Problem List - Problems (1) Abdominal pain Assessment/Plan: prn pain meds Code(s): R10.9 - UNSPECIFIED ABDOMINAL PAIN Qualifiers: Abdominal location: epigastric Qualified Code(s): R10.13 - Epigastric pain (2) S/P bariatric surgery Assessment/Plan: surgery spoke to patient no procedure at this point Code(s): Z98.84 - BARIATRIC SURGERY STATUS (3) COPD (chronic obstructive pulmonary disease) Code(s): J44.9 - CHRONIC OBSTRUCTIVE PULMONARY DISEASE, UNSPECIFIED (4) GERD (gastroesophageal reflux disease) Code(s): K21.9 - GASTRO-ESOPHAGEAL REFLUX DISEASE WITHOUT ESOPHAGITIS Qualifiers: Esophagitis presence: without esophagitis Qualified Code(s): K21.9 - Gastro -esophageal reflux disease without esophagitis (5) HIV antibody positive Code(s): Z21 - ASYMPTOMATIC HUMAN IMMUNODEFICIENCY VIRUS INFECTION STATUS (6) Hyperlipidemia Code(s): E78.5 - HYPERLIPIDEMIA, UNSPECIFIED Assessment/Plan Laboratory Tests 11/27/18 11/27/18 11/27/18 17:15 17:15 17:15 WBC 3.4 L RBC 3.78 Hgb 11.4 Hct 34.7 MCV 91.7 MCH 30.2 MCHC 32.9 RDW 15.5 Plt Count 215 MPV 9.9 Absolute Neuts (auto) 1.3 L Neutrophils % 36.9 L D Lymphocytes % 51.9 H D Monocytes % 6.8 Eosinophils % 3.3 D Basophils % 1.1 Nucleated RBC % 0 PT with INR INR Sodium 142 Potassium 4.7 Chloride 108 H Carbon Dioxide 30 Anion Gap 3 L BUN 12.7 Creatinine 0.7 Est GFR (CKD-EPI)AfAm 112.26 Est GFR (CKD-EPI)NonAf 96.86 Random Glucose 83 Calcium 8.7 Total Bilirubin 0.2 AST 20 ALT 32 Alkaline Phosphatase 109 Creatine Kinase 94 Troponin I < 0.02 Total Protein 6.7 Albumin 3.6 Lipase 87 Urine Color Yellow Urine Appearance Clear Urine pH 6.5 Ur Specific [place] 1.019 Urine Protein Negative Urine Glucose (UA) Negative Urine Ketones Negative Urine Blood Negative Urine Nitrite Negative Urine Bilirubin Negative Urine Urobilinogen 0.2 Ur Leukocyte Esterase Trace Urine WBC (Auto) 1 Urine RBC (Auto) 1 Urine Casts (Auto) 14 U Epithel Cells (Auto) 5.7 Urine Bacteria (Auto) 101.8 11/27/18 11/27/18 17:15 17:15 WBC RBC Hgb Hct MCV MCH MCHC RDW Plt Count MPV Absolute Neuts (auto) Neutrophils % Lymphocytes % Monocytes % Eosinophils % Basophils % Nucleated RBC % PT with INR 12.10 INR 1.03 Sodium Potassium Chloride Carbon Dioxide Anion Gap BUN Creatinine Est GFR (CKD-EPI)AfAm Est GFR (CKD-EPI)NonAf Random Glucose Calcium Total Bilirubin AST ALT Alkaline Phosphatase Creatine Kinase Cancelled Troponin I Cancelled Total Protein Albumin Lipase Urine Color Urine Appearance Urine pH Ur Specific [place] Urine Protein Urine Glucose (UA) Urine Ketones Urine Blood Urine Nitrite Urine Bilirubin Urine Urobilinogen Ur Leukocyte Esterase Urine WBC (Auto) Urine RBC (Auto) Urine Casts (Auto) U Epithel Cells (Auto) Urine Bacteria (Auto) Active Medications Generic Name Dose Route Start Last Admin Trade Name Freq PRN Reason Stop Dose Admin Heparin Sodium (Porcine) 5,000 unit 11/27/18 22:00 11/29/18 10:53 Heparin - SQ 5,000 unit BID AVINASH Administration Sodium Chloride 1,000 mls @ 75 mls/hr 11/27/18 20:00 11/29/18 15:00 Normal Saline - IV 75 mls/hr ASDIR AVINASH Administration Metoclopramide HCl 10 mg 11/29/18 14:00 11/29/18 14:50 Reglan Injection - IVPUSH 10 mg Q8H AVINASH Administration Ondansetron HCl 4 mg 11/29/18 12:50 11/29/18 13:20 Zofran Injection IVPUSH 4 mg Q6H PRN Administration NAUSEA AND/OR VOMITING Polyethylene Glycol 17 gm 11/29/18 13:00 11/29/18 14:02 Miralax (For Daily Use) - PO 17 grams BID AVINASH Administration
[2018-11-28] MEDS ORDERED: SENNOSIDES 8.8 MG/5 ML BULK BOTTLE PO ONE (16:14)
--- NOTE | 2018-11-28 16:43 | PN ---
Progress Note, Physician History of Present Illness: Pt with biliary colic but not cholecystitis; MRCP done with gallstones and little pericholecystic fluid but no wall thickening. Mild ectasia of CHD/CBD with possible distal thickening, but no intraductal stones. Some dilation of pancreatic duct as well. Seen and examined in bed. She reports still having RUQ pain. Has not had N/V while NPO. No BM yet. Notes she is starting to get a bit of a headache. Dr. Barry is present and has just ordered clears to start at dinner for po trial. I also spoke with Dr. Pike this morning. - Current Medication List Current Medications: Active Medications Heparin Sodium (Porcine) (Heparin -) 5,000 unit SQ BID [facility] Last Admin: 11/28/18 11:26 Dose: 5,000 unit Sodium Chloride (Normal Saline -) 1,000 mls @ 75 mls/hr IV ASDIR [facility] Last Admin: 11/27/18 21:00 Dose: 75 mls/hr Morphine Sulfate (Morphine Sulfate) 2 mg IVPUSH Q4H PRN PRN Reason: PAIN LEVEL 4 - 6 Last Admin: 11/28/18 15:53 Dose: 2 mg - Objective Vital Signs: Vital Signs Temperature 98.3 F 11/28/18 15:51 Pulse Rate 47 L 11/28/18 15:51 Respiratory Rate 20 11/28/18 15:51 Blood Pressure 84/44 L 11/28/18 15:51 O2 Sat by Pulse Oximetry (%) 97 11/28/18 10:36 HR repeated now at 50 BP 105/60 Constitutional: Yes: Well Nourished, No Distress, Calm Eyes: Yes: Conjunctiva Clear, EOM Intact. No: Sclera Icterus HENT: Yes: Atraumatic, Normocephalic Gastrointestinal: Yes: Soft, Tenderness (mostly RUQ, also some epigastric and referred pain from other quadrants toward RUQ and upper midline; no rebound or guarding), Tenderness, Epigastrium. No: Distention Extremities: No: Cool, Cyanosis Integumentary: Yes: Tattoos. No: Jaundice, Rash Neurological: Yes: Alert, Oriented Labs: CBC, BMP 11/28/18 05:56 11/28/18 10:55 CMP Sodium 143 mmol/L (136-145) 11/28/18 10:55 Potassium 4.2 mmol/L (3.5-5.1) 11/28/18 10:55 Chloride 111 mmol/L (98-107) H 11/28/18 10:55 Carbon Dioxide 29 mmol/L (21-32) 11/28/18 10:55 Anion Gap 4 MMOL/L (8-16) L 11/28/18 10:55 BUN 10.2 mg/dL (7-18) 11/28/18 10:55 Creatinine 0.6 mg/dL (0.55-1.3) 11/28/18 10:55 Est GFR (CKD-EPI)AfAm 118.09 11/28/18 10:55 Est GFR (CKD-EPI)NonAf 101.89 11/28/18 10:55 Random Glucose 78 mg/dL (74-106) 11/28/18 10:55 Calcium 8.5 mg/dL (8.5-10.1) 11/28/18 10:55 Total Bilirubin 0.2 mg/dL (0.2-1) 11/28/18 10:55 AST 11 U/L (15-37) L 11/28/18 10:55 ALT 24 U/L (13-61) 11/28/18 10:55 Alkaline Phosphatase 94 U/L (45-117) 11/28/18 10:55 Creatine Kinase 94 U/L (26-192) 11/27/18 17:15 Troponin I < 0.02 ng/ml (0.00-0.05) 11/27/18 17:15 Total Protein 5.5 g/dl (6.4-8.2) L 11/28/18 10:55 Albumin 3.1 g/dl (3.4-5.0) L 11/28/18 10:55 Lipase 87 U/L (73-393) 11/27/18 17:15 LFTs normal, lower - ....Imaging MRI: Report Reviewed, Image Reviewed (reviewed - see hpi) Problem List - Problems (1) Calculus of gallbladder w/o mention of cholecystitis or obstruction Assessment/Plan: admitted to medicine most likely biliary colic without cholecystitis GI consult noted, spoke with Dr. Pike her chronic vomiting is likely not related to her gallbladder, and is still being worked up for possible delayed gastric emptying she may not be able to be off chronic opioids completely, given her use of Percocet qid at home if vagal nerve injury were contributing to gastric dysmotility, she could need revision of her bariatric surgery to a bypass if she can tolerate po enough to get home and stick to a low-fat diet, cholecystectomy may be best reserved until it is known if she needs bariatric revision, to be done at the same time she is willing to try clears to start tonight when diet is advanced, need lactose-free and recommend decaf tea/coffee (to avoid further dehydration) to follow bariatric dietary protocol (small bites, complete chewing, small/ frequent meals, staying upright during and after eating) if she can tolerate enough po for discharge home, she should f/u with Dr. Pike very soon for continued evaluation and possible referral to tertiary center trend labs senna syrup for constipation recommend resuming all usual home meds at this time including percocet, to avoid narcotic withdrawal Code(s): K80.20 - CALCULUS OF GALLBLADDER W/O CHOLECYSTITIS W/O OBSTRUCTION Qualifiers: Cholecystitis presence: without cholecystitis Biliary obstruction: without biliary obstruction Qualified Code(s): K80.20 - Calculus of gallbladder without cholecystitis without obstruction (2) Common bile duct dilation Code(s): K83.8 - OTHER SPECIFIED DISEASES OF BILIARY TRACT (3) Nausea & vomiting Code(s): R11.2 - NAUSEA WITH VOMITING, UNSPECIFIED Qualifiers: Vomiting type: unspecified Vomiting Intractability: intractable Qualified Code(s): R11.2 - Nausea with vomiting, unspecified (4) RUQ pain Code(s): R10.11 - RIGHT UPPER QUADRANT PAIN (5) Constipation due to opioid therapy Assessment/Plan: pt had been using Miralax at home since ER visit few days ago, and bisacodyl po senna syrup ordered now monitor for bowel function may be contributing to abdominal pain Code(s): K59.03 - DRUG INDUCED CONSTIPATION; T40.2X5A - ADVERSE EFFECT OF OTHER OPIOIDS, INITIAL ENCOUNTER (6) S/P bariatric surgery Assessment/Plan: with "tight gastric sleeve" s/p endoscopic balloon dilation GI input noted see above Code(s): Z98.84 - BARIATRIC SURGERY STATUS (7) Chronic use of opiate drug for therapeutic purpose Code(s): Z79.891 - [facility] (CURRENT) USE OF OPIATE ANALGESIC (8) HIV antibody positive Assessment/Plan: would continue home med consider ID consult if needed to continue medication Code(s): Z21 - ASYMPTOMATIC HUMAN IMMUNODEFICIENCY VIRUS INFECTION STATUS
[2018-11-28] MEDS: SODIUM CHLORIDE 1,000 ML IV SCH (22:10)
[2018-11-29] MEDS: SODIUM CHLORIDE 1,000 ML IV SCH ×3 (00:50→21:38)
[2018-11-29] MEDS: MORPHINE SULFATE 2 MG/ML VIAL IVPUSH PRN ×4 (01:50→18:36)
[2018-11-29] MEDS: HEPARIN NA (PORCINE) 5,000 UNITS/ML 1ML VIAL SQ SCH ×2 (10:53→21:38)
[2018-11-29] MEDS ORDERED: ONDANSETRON 4 MG/2 ML VIAL IVPUSH PRN (12:50)
[2018-11-29] MEDS ORDERED: BISACODYL 10 MG SUPP.RECT RC ONE (13:00)
[2018-11-29] MEDS ORDERED: POLYETHYLENE GLYCOL 3350 119 GM BTL PO SCH (13:00)
--- NOTE | 2018-11-29 13:18 | PN ---
Progress Note, Physician History of Present Illness: still continues to c/o of abd pain hungry - Current Medication List Current Medications: Active Medications Heparin Sodium (Porcine) (Heparin -) 5,000 unit SQ BID [facility] Last Admin: 11/29/18 10:53 Dose: 5,000 unit Sodium Chloride (Normal Saline -) 1,000 mls @ 75 mls/hr IV ASDIR [facility] Last Admin: 11/29/18 00:50 Dose: 75 mls/hr Morphine Sulfate (Morphine Sulfate) 2 mg IVPUSH Q4H PRN PRN Reason: PAIN LEVEL 4 - 6 Last Admin: 11/29/18 10:52 Dose: 2 mg Ondansetron HCl (Zofran Injection) 4 mg IVPUSH Q6H PRN PRN Reason: NAUSEA AND/OR VOMITING Polyethylene Glycol (Miralax (For Daily Use) -) 17 gm PO BID [facility] - Objective Vital Signs: Vital Signs Temperature 98.1 F 11/29/18 10:46 Pulse Rate 51 L 11/29/18 10:46 Respiratory Rate 20 11/29/18 10:46 Blood Pressure 95/55 L 11/29/18 10:46 O2 Sat by Pulse Oximetry (%) 97 11/28/18 21:00 Constitutional: Yes: Calm, Mild Distress Cardiovascular: Yes: Regular Rate and Rhythm Respiratory: Yes: Regular, CTA Bilaterally Gastrointestinal: Yes: Normal Bowel Sounds, Soft Musculoskeletal: Yes: WNL Extremities: Yes: WNL Neurological: Yes: Alert, Oriented Psychiatric: Yes: Alert, Oriented Labs: CBC, BMP 11/28/18 05:56 11/28/18 10:55 INR, PTT INR 1.03 (0.83-1.09) 11/27/18 17:15 Assessment/Plan Problem List - Problems (1) Abdominal pain Code(s): R10.9 - UNSPECIFIED ABDOMINAL PAIN Qualifiers: Abdominal location: epigastric Qualified Code(s): R10.13 - Epigastric pain (2) S/P bariatric surgery Code(s): Z98.84 - BARIATRIC SURGERY STATUS (3) COPD (chronic obstructive pulmonary disease) Code(s): J44.9 - CHRONIC OBSTRUCTIVE PULMONARY DISEASE, UNSPECIFIED (4) GERD (gastroesophageal reflux disease) Code(s): K21.9 - GASTRO-ESOPHAGEAL REFLUX DISEASE WITHOUT ESOPHAGITIS Qualifiers: Esophagitis presence: without esophagitis Qualified Code(s): K21.9 - Gastro -esophageal reflux disease without esophagitis (5) HIV antibody positive Code(s): Z21 - ASYMPTOMATIC HUMAN IMMUNODEFICIENCY VIRUS INFECTION STATUS (6) Hyperlipidemia Code(s): E78.5 - HYPERLIPIDEMIA, UNSPECIFIED plan continue current mgmt continue to monitor without abx rest as per the team
[2018-11-29] MEDS: METOCLOPRAMIDE HCL INJECTION 10 MG/2 ML VIAL IVPUSH SCH ×2 (14:50→21:38)
--- NOTE | 2018-11-29 18:58 | PN.GI ---
GI Progress Note Subjective: GI Note> Alycia tells me that her main problem is nausea and constipation. The RUQ pain is subsiding. I have told her that narcotic analgesics trigger nausea and inhibit gastric and colon emptying. I have advised stopping the MS and return into her usual Percocet regimen. Will get HIda scan and defer gastricemptying scan until MS is out of her system. Will continue Regaln and try Relistor and Miralax - Objective Vital Signs: Vital Signs Temperature 98.2 F 11/29/18 17:20 Pulse Rate 56 L 11/29/18 17:32 Respiratory Rate 24 H 11/29/18 17:32 Blood Pressure 90/50 L 11/29/18 17:32 O2 Sat by Pulse Oximetry (%) 97 11/28/18 21:00 Laboratory Tests 11/27/18 11/28/18 11/28/18 17:15 05:56 10:55 WBC 3.5 L Total Bilirubin 0.2 AST 11 L ALT 24 Alkaline Phosphatase 94 Lipase 87 Constitutional: Anxious Gastrointestinal Inspection: Yes: Distention ...Auscultate: Yes: Hypoactive Bowel Sounds ...Palpate: Yes: Soft, Other (nontender) ...Percussion: Yes: Tympanitic Labs: CBC, BMP 11/28/18 05:56 11/28/18 10:55 INR, PTT INR 1.03 (0.83-1.09) 11/27/18 17:15 Assessment/Plan Asssessment 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 symptomatic Plan: Hida scan Stop MS and return to percocet Clear liquids - advance as tolerated Reglan Relistor and Miralax Discussed plan with patient, nurse and Dr Toure. We have mutual agreement Problem List - Problems (1) Narcotic bowel syndrome Code(s): K63.89 - OTHER SPECIFIED DISEASES OF INTESTINE (2) Gastroparesis Code(s): K31.84 - GASTROPARESIS (3) Calculus of gallbladder w/o mention of cholecystitis or obstruction Code(s): K80.20 - CALCULUS OF GALLBLADDER W/O CHOLECYSTITIS W/O OBSTRUCTION Qualifiers: Cholecystitis presence: without cholecystitis Biliary obstruction: without biliary obstruction Qualified Code(s): K80.20 - Calculus of gallbladder without cholecystitis without obstruction (4) Constipation due to opioid therapy Code(s): K59.03 - DRUG INDUCED CONSTIPATION; T40.2X5A - ADVERSE EFFECT OF OTHER OPIOIDS, INITIAL ENCOUNTER (5) S/P bariatric surgery Code(s): Z98.84 - BARIATRIC SURGERY STATUS (6) Anxiety Code(s): F41.9 - ANXIETY DISORDER, UNSPECIFIED (7) COPD (chronic obstructive pulmonary disease) Code(s): J44.9 - CHRONIC OBSTRUCTIVE PULMONARY DISEASE, UNSPECIFIED (8) Nausea & vomiting Code(s): R11.2 - NAUSEA WITH VOMITING, UNSPECIFIED Qualifiers: Vomiting type: unspecified Vomiting Intractability: intractable Qualified Code(s): R11.2 - Nausea with vomiting, unspecified
--- NOTE | 2018-11-29 19:02 | PN ---
Progress Note, Physician History of Present Illness: no bm for 10 patient want pain meds - Current Medication List Current Medications: Active Medications Heparin Sodium (Porcine) (Heparin -) 5,000 unit SQ BID [facility] Last Admin: 11/29/18 10:53 Dose: 5,000 unit Sodium Chloride (Normal Saline -) 1,000 mls @ 75 mls/hr IV ASDIR [facility] Last Admin: 11/29/18 15:00 Dose: 75 mls/hr Metoclopramide HCl (Reglan Injection -) 10 mg IVPUSH Q8H [facility] Last Admin: 11/29/18 14:50 Dose: 10 mg Ondansetron HCl (Zofran Injection) 4 mg IVPUSH Q6H PRN PRN Reason: NAUSEA AND/OR VOMITING Last Admin: 11/29/18 13:20 Dose: 4 mg Oxycodone/Acetaminophen (Percocet 5/325 -) 2 combo PO Q6HPO [facility] Polyethylene Glycol (Miralax (For Daily Use) -) 17 gm PO BID [facility] Last Admin: 11/29/18 14:02 Dose: 17 grams - Objective Vital Signs: Vital Signs Temperature 98.2 F 11/29/18 17:20 Pulse Rate 56 L 11/29/18 17:32 Respiratory Rate 24 H 11/29/18 17:32 Blood Pressure 90/50 L 11/29/18 17:32 O2 Sat by Pulse Oximetry (%) 97 11/28/18 21:00 Constitutional: Yes: No Distress HENT: Yes: Atraumatic Neck: Yes: Supple Cardiovascular: Yes: Regular Rate and Rhythm Respiratory: Yes: CTA Bilaterally Gastrointestinal: Yes: Normal Bowel Sounds Extremities: Yes: WNL Edema: No Peripheral Pulses WNL: Yes Neurological: Yes: Alert, Oriented Labs: CBC, BMP 11/28/18 05:56 11/28/18 10:55 INR, PTT INR 1.03 (0.83-1.09) 11/27/18 17:15 Problem List - Problems (1) Abdominal pain Assessment/Plan: prn pain meds gi and surgery consult patient has constipation ...no bm for 10 days will put her on bowel regimen clear liquid diet cut down on pain meds Code(s): R10.9 - UNSPECIFIED ABDOMINAL PAIN Qualifiers: Abdominal location: epigastric Qualified Code(s): R10.13 - Epigastric pain (2) S/P bariatric surgery Assessment/Plan: surgery spoke to patient no procedure at this point Code(s): Z98.84 - BARIATRIC SURGERY STATUS (3) COPD (chronic obstructive pulmonary disease) Code(s): J44.9 - CHRONIC OBSTRUCTIVE PULMONARY DISEASE, UNSPECIFIED (4) GERD (gastroesophageal reflux disease) Code(s): K21.9 - GASTRO-ESOPHAGEAL REFLUX DISEASE WITHOUT ESOPHAGITIS Qualifiers: Esophagitis presence: without esophagitis Qualified Code(s): K21.9 - Gastro -esophageal reflux disease without esophagitis (5) HIV antibody positive Code(s): Z21 - ASYMPTOMATIC HUMAN IMMUNODEFICIENCY VIRUS INFECTION STATUS (6) Hyperlipidemia Code(s): E78.5 - HYPERLIPIDEMIA, UNSPECIFIED
[2018-11-29] MEDS: POLYETHYLENE GLYCOL 3350 119 GM BTL PO SCH (20:39)
[2018-11-29] MEDS: ACETAMINOPHEN 325 MG TABLET (FP) PO SCH (23:11)
[2018-11-29] MEDS: oxyCODONE HCL 5 MG TABLET PO SCH (23:12)
[2018-11-30] MEDS: METOCLOPRAMIDE HCL INJECTION 10 MG/2 ML VIAL IVPUSH SCH ×2 (06:19→14:54)
[2018-11-30] MEDS: oxyCODONE HCL 5 MG TABLET PO SCH ×3 (06:19→18:32)
[2018-11-30] MEDS: SODIUM CHLORIDE 1,000 ML IV SCH (06:19)
[2018-11-30] MEDS: ACETAMINOPHEN 325 MG TABLET (FP) PO SCH ×3 (06:21→18:33)
[2018-11-30] MEDS: POLYETHYLENE GLYCOL 3350 119 GM BTL PO SCH ×3 (06:22→11:59)
[2018-11-30 07:11] LABS: BASO % 1.1 % (0-2.0); EOS % 4.2 % (0-4.5); HEMATOCRIT 31.9 % (32.4-45.2); HEMOGLOBIN 10.5 GM/dL (10.7-15.3); LYMPH % 64.9 % (8-40); MCH 30.4 pg (25.7-33.7); MEAN CELL VOLUME 92.2 fl (80-96); MEAN PLT VOLUME 9.6 fl (7.5-11.1); MONO % 10.6 % (3.8-10.2); NEUT % 19.2 % (42.8-82.8); PLATELET COUNT 171 K/MM3 (134-434); RBC 3.47 M/mm3 (3.60-5.2); RDW 14.8 % (11.6-15.6); WHITE BLOOD COUNT 2.6 K/mm3 (4.0-10.0)
[2018-11-30 07:52] LABS: ALBUMIN 2.9 g/dl (3.4-5.0); BILIRUBIN,TOTAL 0.4 mg/dL (0.2-1); BLOOD UREA NITROGEN 5.2 mg/dL (7-18); CALCIUM 8.4 mg/dL (8.5-10.1); CREATININE 0.6 mg/dL (0.55-1.3); POTASSIUM 3.8 mmol/L (3.5-5.1); TOT PROT 5.3 g/dl (6.4-8.2)
[2018-11-30] MEDS: PANTOPRAZOLE 40 MG TABLET (FP) PO SCH ×2 (11:01→11:14)
[2018-11-30] MEDS: HEPARIN NA (PORCINE) 5,000 UNITS/ML 1ML VIAL SQ SCH ×2 (11:01→11:14)
[2018-11-30] MEDS: Methylnaltrexone Bromide 12 MG/0.6 ML KIT SQ SCH ×2 (11:02→13:46)
[2018-11-30] MEDS ORDERED: PT OWN MED DRAWER 7, Y5N ONE (11:27)
--- NOTE | 2018-11-30 11:32 | PN ---
Progress Note, Physician History of Present Illness: still continues to have abd pain no ne issues - Current Medication List Current Medications: Active Medications Acetaminophen (Tylenol -) 650 mg PO Q6HPO [facility] Last Admin: 11/30/18 06:21 Dose: 650 mg Heparin Sodium (Porcine) (Heparin -) 5,000 unit SQ BID [facility] Last Admin: 11/30/18 11:01 Dose: Not Given Sodium Chloride (Normal Saline -) 1,000 mls @ 75 mls/hr IV ASDIR [facility] Last Admin: 11/30/18 06:19 Dose: 75 mls/hr Methylnaltrexone [place] (Relistor -) 8 mg SQ DAILY [facility] Last Admin: 11/30/18 11:02 Dose: Not Given Metoclopramide HCl (Reglan Injection -) 10 mg IVPUSH Q8H [facility] Last Admin: 11/30/18 06:19 Dose: 10 mg Oxycodone HCl (Roxicodone -) 10 mg PO Q6HPO [facility] Last Admin: 11/30/18 06:19 Dose: 10 mg Pantoprazole Sodium (Protonix -) 40 mg PO DAILY [facility] Last Admin: 11/30/18 11:01 Dose: Not Given Polyethylene Glycol (Miralax (For Daily Use) -) 17 gm PO Q6H [facility] Last Admin: 11/30/18 06:25 Dose: Not Given - Objective Vital Signs: Vital Signs Temperature 98.2 F 11/30/18 11:12 Pulse Rate 50 L 11/30/18 11:12 Respiratory Rate 20 11/30/18 11:12 Blood Pressure 113/69 11/30/18 11:12 O2 Sat by Pulse Oximetry (%) 97 11/29/18 21:00 Constitutional: Yes: No Distress, Calm Cardiovascular: Yes: Regular Rate and Rhythm Respiratory: Yes: Regular, CTA Bilaterally Gastrointestinal: Yes: Soft Musculoskeletal: Yes: WNL Extremities: Yes: WNL Neurological: Yes: Alert, Oriented Psychiatric: Yes: Alert, Oriented Labs: CBC, BMP 11/30/18 06:32 11/30/18 06:32 INR, PTT INR 1.03 (0.83-1.09) 11/27/18 17:15 Assessment/Plan Problem List - Problems (1) Abdominal pain Code(s): R10.9 - UNSPECIFIED ABDOMINAL PAIN Qualifiers: Abdominal location: epigastric Qualified Code(s): R10.13 - Epigastric pain (2) S/P bariatric surgery Code(s): Z98.84 - BARIATRIC SURGERY STATUS (3) COPD (chronic obstructive pulmonary disease) Code(s): J44.9 - CHRONIC OBSTRUCTIVE PULMONARY DISEASE, UNSPECIFIED (4) GERD (gastroesophageal reflux disease) Code(s): K21.9 - GASTRO-ESOPHAGEAL REFLUX DISEASE WITHOUT ESOPHAGITIS Qualifiers: Esophagitis presence: without esophagitis Qualified Code(s): K21.9 - Gastro -esophageal reflux disease without esophagitis (5) HIV antibody positive Code(s): Z21 - ASYMPTOMATIC HUMAN IMMUNODEFICIENCY VIRUS INFECTION STATUS (6) Hyperlipidemia Code(s): E78.5 - HYPERLIPIDEMIA, UNSPECIFIED plan continue current mgmt continue to monitor without abx rest as per the team
[2018-11-30 12:57] LABS: ANISOCYTOSIS 1+; MACROCYTOSIS 0; PLATELET ESTIMATE NORMAL
--- NOTE | 2018-11-30 17:45 | DS ---
Physical Examination Vital Signs: Vital Signs Temperature 98.3 F 11/30/18 14:00 Pulse Rate 52 L 11/30/18 14:00 Respiratory Rate 18 11/30/18 14:00 Blood Pressure 101/51 L 11/30/18 14:00 O2 Sat by Pulse Oximetry (%) 97 11/29/18 21:00 Constitutional: Yes: No Distress HENT: Yes: Atraumatic Neck: Yes: Supple Cardiovascular: Yes: Regular Rate and Rhythm Respiratory: Yes: CTA Bilaterally Gastrointestinal: Yes: Normal Bowel Sounds Extremities: Yes: WNL Edema: No Peripheral Pulses WNL: Yes Neurological: Yes: Alert, Oriented Labs: CBC, BMP 11/30/18 06:32 11/30/18 06:32 Discharge Summary Reason For Visit: EPIGASTRIC PAIN Current Active Problems Abdominal pain (Acute) Calculus of gallbladder w/o mention of cholecystitis or obstruction (Acute) Common bile duct dilation (Acute) Constipation due to opioid therapy (Acute) Gastroparesis (Acute) Narcotic bowel syndrome (Acute) RUQ pain (Acute) Condition: Fair - Instructions Diet, Activity, Other Instructions: tylenol as needed for back pain stop codeine containing pain meds as it is causing constipation take miralax as needed for constipation soft diet small frequent meals need to see gi for tests and procedures need to see surgery for her gall bladder Referrals: Pramod Warren MD [Staff Physician] - Geronimo Pike MD [Staff Physician] - - Home Medications Comprehensive Discharge Medication List: Ambulatory Orders Fluticasone Prop 0.05% Nasal [Flonase -] 1 - 2 spray NS DAILY PRN 07/05/17 Calcium Carbonate [Calcium] 500 mg PO DAILY #30 tablet 09/28/17 Omeprazole 20 mg PO DAILY PRN #[address] MATOS 1 11/23/17 Efavirenz/Emtricitab/Tenofovir [Atripla Tablet -] 1 tab PO DAILY #30 tab Ascorbic Acid [Vitamin C -] 500 mg PO DAILY #30 tablet 07/20/18 Cholecalciferol (Vitamin D3) [Vitamin D3] 5,000 unit PO DAILY #30 tab.rapdis Gabapentin [Neurontin] 600 mg PO TID #90 tablet 07/20/18 Vitamin B Complex 1 each PO DAILY #30 capsule 07/20/18 Acetaminophen 325 mg PO BID PRN #60 tablet 09/13/18 Multivitamin [Multiple Vitamins] 1 each PO DAILY #30 tablet 10/13/18 Cetirizine HCl [Zyrtec -] 10 mg PO DAILY #30 tablet 11/01/18 Diphenhydramine [Benadryl Capsule -] 50 mg PO BID PRN #60 capsule 11/16/18 Polyethylene Glycol 3350 [Miralax 119 gm Btl -] 17 gm PO BID #1 bottle 11/30/18 d/w dr rebolledo ...patients surgeon patient can be dc after dinner patient saying she has this gi issue vomitting for over a year she will be going for another gi procedure
[2018-11-30 18:25] VITALS: BP 106/53; PULSE 47; TEMP 98.1
[2018-12-01 15:13] LABS: TRANSGLUTAMINASE IGA < 2 U/mL (0-3); TRANSGLUTAMINASE IGG < 2 U/mL (0-5)
== END 2018-11-30 20:24 | disposition home or self-care (01) ==
LOC: JER 13:21 → JERBED 17:33 → J5S 11-28 09:30
PROVIDERS: ADMIT Internal Medicine; ATTEND Internal Medicine
DX: K80.50 Calculus of bile duct without cholangitis or cholecystitis without obstruction (principal); R10.9 Unspecified abdominal pain; Z98.84 Bariatric surgery status; K21.9 Gastro-esophageal reflux disease without esophagitis; E78.5 Hyperlipidemia, unspecified; F41.9 Anxiety disorder, unspecified; Z21 Asymptomatic human immunodeficiency virus [HIV] infection status; R11.2 Nausea with vomiting, unspecified; R10.13 Epigastric pain; K31.819 Angiodysplasia of stomach and duodenum without bleeding; K59.03 Drug induced constipation; K31.84 Gastroparesis; J44.9 Chronic obstructive pulmonary disease, unspecified
CPT/HCPCS: 36415; 71045-TC-FY; 74019-TC-FY; 74181-TC; 76705-TC; 78226-TC; 80053; 81003; 82150; 82550; 83516; 83690; 84484; 85025; 85610; 86140; 86850; 86900; 86901; 93005; 93010; 99283-25; A9537; J1644; J7030

== ENCOUNTER 2019-01-09 08:45 | Day surgery (SDC) | payer OTHER ==
[2019-01-08 14:02] VITALS: BMI 26.3
[2019-01-09 09:57] VITALS: TEMP 97.2
[2019-01-09 10:14] VITALS: PULSE 51
[2019-01-09 10:59] VITALS: BP 108/63
== END 2019-01-09 10:55 | disposition home or self-care (01) ==
LOC: JASU-ENDO 08:45
PROVIDERS: ATTEND Internal Medicine Gastroenterology
PROC: 0DJ08ZZ Inspection of Upper Intestinal Tract, Via Natural or Artificial Opening Endoscopic (ICD-10-PCS; principal; 2019-01-09 09:15)
DX: R10.9 Unspecified abdominal pain (principal); R11.10 Vomiting, unspecified; Z98.84 Bariatric surgery status

== ENCOUNTER 2019-02-02 16:14 | Inpatient (IN) | payer OTHER ==
--- NOTE | 2019-02-02 16:25 | PDOC ---
Rapid Medical Evaluation Time Seen by Provider: 02/02/19 16:22 Medical Evaluation: Allergies Allergy/AdvReac Type Severity Reaction Status Date / Time cephalexin monohydrate Allergy Severe Hives Verified 11/27/18 13:26 [From Keflex] Penicillins Allergy Severe Hives Verified 11/27/18 13:26 lactose [Lactose] Allergy Mild diarrhea Verified 11/27/18 13:26 metronidazole [From Flagyl] AdvReac Intermediate Rash Verified 11/27/18 13:26 02/02/19 16:23 I have performed a brief in-person evaluation of this patient. The patient presents with a chief complaint of:R sided abd pain w/ n/v. H/o gallstones, s/p gastric sleeve [address] Warren, HIV. Of note, pt seen in ED multiple times for sxs, in 11/[address] which showed distended GB w/ wall thickening and was admitted, but for unclear reasons did not have a mariah done Pertinent physical exam findings:appears very uncomfortable, actively vomiting in triage I have ordered the following:labs The patient will proceed to the ED for further evaluation. Discharge Disposition - Diagnosis Abdominal pain Qualifiers: Abdominal location: right upper quadrant Qualified Code(s): R10.11 - Right upper quadrant pain - Referrals - Patient Instructions - Post Discharge Activity
[2019-02-02 16:30] VITALS: BMI 26.1
[2019-02-02] MEDS ORDERED: ACETAMINOPHEN 1000 MG/100 ML VIAL (NON FORMULARY) IVPB ONE (17:06)
[2019-02-02] MEDS ORDERED: SODIUM CHLORIDE 0.9% 500 ML INFUS.BAG IV ONE (17:06)
[2019-02-02] MEDS ORDERED: ONDANSETRON 4 MG/2 ML VIAL IVPUSH ONE (17:07)
[2019-02-02 17:21] LABS: BASO % 0.8 % (0-2.0); EOS % 1.7 % (0-4.5); HEMATOCRIT 37.7 % (32.4-45.2); HEMOGLOBIN 12.1 GM/dL (10.7-15.3); LYMPH % 25.2 % (8-40); MCH 30.1 pg (25.7-33.7); MEAN CELL VOLUME 93.9 fl (80-96); MEAN PLT VOLUME 9.7 fl (7.5-11.1); MONO % 8.8 % (3.8-10.2); NEUT % 63.5 % (42.8-82.8); PLATELET COUNT 240 K/MM3 (134-434); RBC 4.02 M/mm3 (3.60-5.2); RDW 14.7 % (11.6-15.6); WHITE BLOOD COUNT 5.8 K/mm3 (4.0-10.0)
[2019-02-02] MEDS ORDERED: morphine CARPU-JECT 4 MG/1 ML DISP.SYRIN IVPUSH ONE (17:23)
--- NOTE | 2019-02-02 17:25 | PDOC ---
History of Present Illness - General Chief Complaint: Pain, Acute Stated Complaint: GALL BLADDER ATTACK Time Seen by Provider: 02/02/19 16:22 History Source: Patient Exam Limitations: No Limitations - History of Present Illness Initial Comments: Alycia Bolden is a 58 yo F w a hx of gallstones, HIV, morbid obesity s/p lap gastric sleeve last year (by Dr. Warren; has lost 140+ lbs) who presents to the [facility] ER because she has been experiencing 3 days of sharp and intense RUQ abdominal pain which radiates to the back and shoulder. She states the pain becomes very bad after she eats food. She reports that she has vomited over 10 times in the past 3 days all of the vomitus was NBNB. She was seen recently in this hospital and told that she had cholelithiasis but not cholecystitis and it was determined not to take her gallbladder out at the time. The patient states that she now wants her gallbladder to be taken out because she cannot deal with the pain she is experiencing. Patient denies fevers, diarrhea, constipation, or chills. PCP: Alisson Guaman GI: Geronimo Pike Surgery: Dr. Warren + Dr. Persaud PSH: laparoscopic gastric sleeve 07/24 ([facility]), multiple spinal surgeries, gastric sleeve dilatations, and salpingectomy Social Hx: Denies current smoking, drinking or toxic habits. former smoker 50+ pack year hx. Takes 4 percocets daily. Allergies: Keflex, penicillins, lactose, metronidazole Past History - Past Medical History Allergies/Adverse Reactions: Allergies Allergy/AdvReac Type Severity Reaction Status Date / Time cephalexin monohydrate Allergy Severe Hives Verified 02/02/19 16:24 [From Keflex] Penicillins Allergy Severe Hives Verified 02/02/19 16:24 lactose [Lactose] Allergy Mild diarrhea Verified 02/02/19 16:24 metronidazole [From Flagyl] AdvReac Intermediate Rash Verified 02/02/19 16:24 Home Medications: Ambulatory Orders Calcium Carbonate [Calcium] 500 mg PO DAILY #30 tablet 09/28/17 Omeprazole 20 mg PO DAILY PRN #[address] MATOS 1 11/23/17 Efavirenz/Emtricitab/Tenofovir [Atripla Tablet -] 1 tab PO DAILY #30 tab Acetaminophen 325 mg PO BID PRN #60 tablet 09/13/18 Multivitamin [Multiple Vitamins] 1 each PO DAILY #30 tablet 10/13/18 Cetirizine HCl [Zyrtec -] 10 mg PO DAILY #30 tablet 11/01/18 Diphenhydramine [Benadryl Capsule -] 50 mg PO BID PRN #60 capsule 11/16/18 Ascorbic Acid [Vitamin C -] 500 mg PO DAILY #30 tablet 12/13/18 Gabapentin [Neurontin] 600 mg PO TID #90 tablet 12/13/18 Vitamin B Complex 1 each PO DAILY #30 capsule 12/13/18 Cholecalciferol (Vitamin D3) [Vitamin D3] 5,000 unit PO DAILY #30 tab.rapdis 05/24 Oxycodone HCl/Acetaminophen [Percocet 10-325 mg Tablet] 1 each PO QID PRN #120 tablet MDD 4 01/15/19 Polyethylene Glycol 3350 [Miralax 119 gm Btl -] 17 gm PO BID #1 bottle 01/15/19 Lactose-Reduced Food [Ensure Liquid] 1 can PO TID #90 liquid 01/19/19 Anemia: No Asthma: No Cancer: No Cardiac Disorders: No CVA: No COPD: No CHF: No Dementia: No Diabetes: No GI Disorders: Yes (vomiting) Disorders: No HTN: No Hypercholesterolemia: No Liver Disease: No Psychiatric Problems: No (Not before the surgery) Seizures: No Thyroid Disease: No - Surgical History Abdominal Surgery: Yes (benign tumor removed 2004) Appendectomy: No Cardiac Surgery: No Cholecystectomy: No Lung Surgery: No Neurologic Surgery: Yes (BACK SX - X 3; [id number]) Orthopedic Surgery: Yes (LEFT KNEE SURGERY TORN MENISCUS, back surgery, r shoulder surgery 2014) - Immunization History Immunization Up to Date: Yes - Suicide/Smoking/Psychosocial Hx Smoking Status: Yes Smoking History: Former smoker Have you smoked in the past 12 months: No Number of Cigarettes Smoked Daily: 1 If you are a former smoker, when did you quit?: 6YRS Cigars Per Day: 0 Information on smoking cessation initiated: No 'Breaking Loose' booklet given: 06/05/15 Hx Alcohol Use: No Drug/Substance Use Hx: No Substance Use Type: None Hx Substance Use Treatment: No Review of Systems - Review of Systems Able to Perform ROS?: Yes Comments:: CONSTITUTIONAL: Present: malaise, loss of appetite Absent: fever, chills, diaphoresis, generalized weakness HEENT: Absent: rhinorrhea, nasal congestion, throat pain, throat swelling, difficulty swallowing, mouth swelling, ear pain, eye pain, visual Changes CARDIOVASCULAR: Absent: chest pain, syncope, palpitations, irregular heart rate, lightheadedness , peripheral edema RESPIRATORY: Absent: cough, shortness of breath, dyspnea with exertion, orthopnea, wheezing, stridor, hemoptysis GASTROINTESTINAL: Present: abdominal pain, abdominal distension, nausea, vomiting Absent: diarrhea, constipation, melena, hematochezia GENITOURINARY: Absent: dysuria, frequency, urgency, hesitancy, hematuria, flank pain, genital pain MUSCULOSKELETAL: Absent: myalgia, arthralgia, joint swelling SKIN: Absent: rash, itching, pallor HEMATOLOGIC/IMMUNOLOGIC: Absent: easy bleeding, easy bruising, lymphadenopathy, frequent infections ENDOCRINE: Absent: unexplained weight gain, unexplained weight loss, heat intolerance, cold intolerance NEUROLOGIC: Absent: headache, focal weakness or paresthesias, dizziness, unsteady gait, seizure, mental status changes, bladder or bowel incontinence PSYCHIATRIC: Absent: anxiety, depression, suicidal or homicidal ideation, hallucinations. *Physical Exam - Vital Signs Last Vital Signs Temp Pulse Resp BP Pulse Ox 98.1 F 69 17 105/44 L 99 02/02/19 16:25 02/02/19 16:25 02/02/19 16:25 02/02/19 16:25 02/02/19 16:25 - Physical Exam Comments: GENERAL: Patient appears to be in a significant amount of pain. Well developed, well nourished. Awake and alert. moderate distress. HEENT: Normocephalic, atraumatic. PERRLA, EOMI. No conjunctival pallor. Dry mucous membranes. Oropharynx is clear. NECK: Supple. Full ROM. CARDIOVASCULAR: Regular rate and rhythm. No murmurs, rubs, or gallops. Distal pulses are 2+ and symmetric. PULMONARY: No evidence of respiratory distress. Lungs clear to auscultation bilaterally. No wheezing, rales or rhonchi. ABDOMINAL: There is a significant amount of RUQ abdominal TTP. + nunes sign. + Sonographic nunes sign. No rebound or guarding. Normoactive bowel sounds. MUSCULOSKELETAL Normal range of motion at all joints. No bony deformities or tenderness. No CVA tenderness. EXTREMITIES: No cyanosis. No clubbing. No edema. No calf tenderness. SKIN: Warm and dry. Normal capillary refill. No rashes. No jaundice. NEUROLOGICAL: Alert, awake, appropriate. Normal speech. Gait is normal without ataxia. PSYCHIATRIC: Cooperative. Good eye contact. Appropriate mood and affect. ED Treatment Course - LABORATORY CBC & Chemistry Diagram: 02/02/19 17:00 02/02/19 17:00 - RADIOLOGY Radiograph Interpretation: RUQ US: Right upper quadrant abdominal ultrasound Clinical information: evaluate for gallstones, cholecystitis; right upper quadrant pain As on a previous ultrasound exam of 11/27/2018 several small mobile gallbladder calculi are visualized. There appears to be interval development of diffuse borderline wall thickening and mild gallbladder overdistention. No pericholecystic fluid is identified. The common bile duct diameter appears borderline measuring 0.6 cm. No gross intraductal calculus is identified within the limitations of transabdominal sonography. The pancreas could not be adequately visualized due to obscuring bowel gas. Mild dilatation of the main pancreatic duct was described on an MRI study of 11/27/2018. Questionable thickening of the distal common bile duct described in the MRI report cannot be appreciated on sonography. As suggested in the MRI report correlation with follow-up MRI/MRCP is suggested. No free intraperitoneal fluid is noted. The liver, and right kidney demonstrate no sonographic abnormality. Impression: Cholelithiasis is noted as on a previous ultrasound exam of 11/27/2018. There appears to be interval development of diffuse borderline gallbladder wall thickening and mild gallbladder overdistention which could be on the basis of acute cholecystitis. Follow-up imaging as clinically indicated. The common bile duct diameter appears borderline measuring 0.6 cm. Medical Decision Making - Medical Decision Making Alycia Bolden is a 58 yo F w a hx of gallstones, HIV, morbid obesity s/p lap gastric sleeve last year (by Dr. Warren; has lost 140+ lbs) who presents to the [facility] ER because she has been experiencing 3 days of sharp and intense RUQ abdominal pain which radiates to the back and shoulder. She states the pain becomes very bad after she eats food. She reports that she has vomited over 10 times in the past 3 days all of the vomitus was NBNB. She was seen recently in this hospital and told that she had cholelithiasis but not cholecystitis and it was determined not to take her gallbladder out at the time. The patient states that she now wants her gallbladder to be taken out because she cannot deal with the pain she is experiencing. Vital Signs Temp Pulse Resp BP Pulse Ox 98.1 F 69 17 105/44 L 99 02/02/19 16:25 02/02/19 16:25 02/02/19 16:25 02/02/19 16:25 02/02/19 16:25 POCUS Bedside US: Patient has a significantly distended gallbladder with a positive sono nunes sign. The gallbladder wall is thickened at 4 mm. There are multiple small stones with shadowing. There is also wall edema. There is no pericholecystic fluid. Impression: Cholilithiasis with cholecystitis. MDM: Patient with known gallstones presents with RUQ pain and a clinical scenario consistent with cholecystitis. Plan: Labs, RUQ US, NPO, IV hydration, analgesia, anti-emetics, surgical consult , admit to hospital. Labs: elevated LFT's, mildly hypokalemic - repleting orally. RUQ US: Impression: Cholelithiasis is noted as on a previous ultrasound exam of 11/27/2018. There appears to be interval development of diffuse borderline gallbladder wall thickening and mild gallbladder overdistention which could be on the basis of acute cholecystitis. Surgical consult: Dr. Warren - . Call placed. Answering service received message and said transition social worker physician will call back shortly. Dr. Warren called back and said he is away for the weekend and recommends calling the transition social worker surgeon at our hospital. Dr. Warren says based on the clinical situation he believes the patient should now have her gallbladder taken out. He states there was at one point a concern for a vagal injury which was ruled out. Will call transition social worker surgeon at [facility] - Dr. Persaud is transition social worker Call placed to [facility]. Was informed by [employer] we will receive a call back. Spoke with Dr. Persaud in depth about the patient. Dr. Persaud is aware the patient is in the hospital and will follow. Recommends 1) MRCP with and without contrast Patient is not toxic appearing, is afebrile and has no white count. Given her multiple Abx allergies will defer Abx administration to ID. Disposition: Admit to hospital *DC/Admit/Observation/Transfer Diagnosis at time of Disposition: RUQ pain, Cholecystitis Abdominal pain Qualifiers: Abdominal location: right upper quadrant Qualified Code(s): R10.11 - Right upper quadrant pain Cholelithiasis Qualifiers: Cholelithiasis location: gallbladder Cholecystitis presence: with cholecystitis Cholecystitis acuity: acute and chronic Biliary obstruction: without biliary obstruction Qualified Code(s): K80.12 - Calculus of gallbladder with acute and chronic cholecystitis without obstruction - Discharge Dispostion Condition at time of disposition: Guarded Decision to Admit order: Yes - Referrals Referrals: Alisson Guaman [employer] [facility]ER [Primary Care Provider] - - Patient Instructions - Post Discharge Activity
[2019-02-02 17:26] LABS: EPI CELLS 4.2 /HPF (0-5/HPF); HYALINE CASTS 5 /lpf (0-8); URINE APPEARANCE Error; URINE BILIRUBIN NEGATIVE (NEGATIVE); URINE COLOR YELLOW; URINE GLUCOSE (UA) NEGATIVE (NEGATIVE); URINE KETONE NEGATIVE (NEGATIVE); URINE LEUK ESTERASE TRACE (NEGATIVE); URINE NITRITE NEGATIVE (NEGATIVE); URINE PROTEIN NEGATIVE (NEGATIVE); URINE RBC 1 /hpf (0-4); URINE UROBILINOGEN 0.2 mg/dL (0.2-1.0); URINE WBC 2 /hpf (0-5)
[2019-02-02] MEDS ORDERED: ACETAMINOPHEN INJECTION 100 ML IVPB ONE (17:27)
[2019-02-02] MEDS ORDERED: ONDANSETRON 4 MG/2 ML VIAL ONE (17:28)
[2019-02-02] MEDS ORDERED: morphine SULFATE 4 MG/ML VIAL ONE (17:38)
--- NOTE | 2019-02-02 17:38 | PDOC ---
Attending Attestation - Resident Resident Name: Cristian Rayo - ED Attending Attestation I have performed the following: I have examined & evaluated the patient, The case was reviewed & discussed with the resident, I agree w/resident's findings & plan - HPI HPI: 02/02/19 17:32 58 YOF with h/o gallstones, HIV, morbid obesity s/p lap gastric sleeve last year (by Dr. Warren; has lost 140+ lbs) who presents to the [facility] ER with RUQ pain x 3 days a/w n/v, inability to kimberly PO and decreased appetite admitted previously for similar sx, +gallstones, but has not had cholecystectomy 02/02/19 19:02 - Physicial Exam PE: 02/02/19 17:35 Agree with the resident's HPI and PE as documented in the electronic medical record. uncomfortable appearing, EOMI, PERRL, nl conjunctiva, anicteric; neck supple. lungs clear, RRR, abdomen soft +RUQ TTP, +Real's sign. no CVAT. Back nontender. LÓPEZ x4, no focal neuro deficits. No peripheral edema. normal color for ethnicity, WWP. - Medical Decision Making 02/02/19 17:35 Vital Signs Temp Pulse Resp BP Pulse Ox 98.1 F 69 17 105/44 L 99 02/02/19 16:25 02/02/19 16:25 02/02/19 16:25 02/02/19 16:25 02/02/19 16:25 hpi as documented prior notes reviewed VS reviewed, wnl no fever, nontoxic appearing bedside biliary sono with +real's sign, +biliary stones, no pericholecystic FF , distended GB. wall diameter 3.5mm, normal CBD. concern for acute mariah analgesia, NPO, antiemetics, IVF, reassess contact Dr Hu prior gastric sleeve bypass, who is away on vacation. requests production associate surgery here, who is [employer] labs and lytes LFTs elevated compared to prior in 11/2018 with AST>ALT lipase normal, reassuring Dr Persaud production associate surgery, hold abx, will need MRCP vs HIDA to further elucidate, defer abx until advanced imaging. defer to inpatient team, as she has multiple abx allergies and last time also had ID cs with Dr Deluna, held off and monitored off abx. pt is nontoxic appearing, no fever, no systemic findings, so will not likely benefit from abx at this time. 02/02/19 19:02 02/02/19 19:28 Procedures - Bedside Ultrasound Bedside Ultrasound: Gallbladder Remarks: 02/02/19 17:39 POCUS biliary exam: Indication: abdominal pain Views: gallbladder long and s hort axis, CBD Findings: +gallstones, distended GB. anterior GB wall 3.5cm borderline GB wall thickening but no pericholecystic fluid, normal CBD <5mm, appropriate for age. + sono murphys Impression: cholelithiasis with concern for acute cholecystitis 02/02/19 20:19
[2019-02-02 17:39] LABS: INR 1.05 (0.83-1.09); PROTHROMBIN TIME (PATIENT) 12.4 SEC (9.7-13.0)
[2019-02-02 17:49] LABS: ALBUMIN 3.9 g/dl (3.4-5.0); BILIRUBIN,TOTAL 0.7 mg/dL (0.2-1); BLOOD UREA NITROGEN 12.1 mg/dL (7-18); CREATININE 0.8 mg/dL (0.55-1.3); POTASSIUM 3.4 mmol/L (3.5-5.1)
[2019-02-02] MEDS ORDERED: POTASSIUM CHLORIDE TABS 20 MEQ TABLET.ER (FP) PO ONE ×2 (18:10→18:21)
--- NOTE | 2019-02-02 19:23 | PN ---
Teaching Attending Note Name of Resident: Anila Hernandez ATTENDING PHYSICIAN STATEMENT I saw and evaluated the patient. I reviewed the resident's note and discussed the case with the resident. I agree with the resident's findings and plan as documented. SUBJECTIVE: Patient is a 58 year old woman with PMH of Gallstones, HIV disease, Penicillin/ Flagyl allergy and Morbid obesity s/p lap gastric sleeve last year (by Dr. Warren ; has lost 140+ lbs) who presents to the for 3 days of sharp and intense RUQ abdominal pain which radiates to the back and shoulder. She states the pain becomes very bad after she eats food. She reports that she has vomited over 10 times in the past 3 days all of the vomitus was NBNB. She was seen recently in this hospital and told that she had cholelithiasis but not cholecystitis and it was determined not to take her gallbladder out at the time. The patient states that she now wants her gallbladder to be taken out because she cannot deal with the pain she is experiencing. Patient denies fevers, diarrhea, constipation, or chills. Has FH of DM and asthma. OBJECTIVE: Alert Vital Signs Period Temp Pulse Resp BP Sys/Dickson Pulse Ox Last 24 Hr 98.1 F 69 17 105/44 99 HEENT: No Jaundice, eye redness or discharge, PERRLA, EOMI. Normocephalic, atraumatic. External ears are normal and hearing is grossly intact. No nasal discharge. Neck: Supple, nontender. No palpable adenopathy or thyromegaly. No JVD Chest: Good effort. Clear to auscultation and percussion. Heart: Regular. No S3, rub or murmur Abdomen: Not distended, soft, diffuse tenderness and no HSM. No rebound or guarding. Normal bowel sounds. Ext: Peripheral pulses intact. No leg edema. Skin: Warm and dry. No petechiae, rash or ecchymosis. Neuro: Alert. Oriented x3. CN 2-12 grossly intact. Sensation grossly intact in all four extremities and DTR are symmetric. Psych: Appropriate mood and affect. Good insight. Home Medications Medication Instructions Recorded Calcium Carbonate [Calcium] 500 mg PO DAILY #30 tablet 09/28/17 Omeprazole 20 mg PO DAILY PRN #30 capsule. 11/23/17 MDD 1 Efavirenz/Emtricitab/Tenofovir 1 tab PO DAILY #30 tab 06/27/18 [Atripla Tablet -] Acetaminophen 325 mg PO BID PRN #60 tablet 09/13/18 Multivitamin [Multiple Vitamins] 1 each PO DAILY #30 tablet 10/13/18 Cetirizine HCl [Zyrtec -] 10 mg PO DAILY #30 tablet 11/01/18 Diphenhydramine [Benadryl Capsule 50 mg PO BID PRN #60 capsule 11/16/18 -] Ascorbic Acid [Vitamin C -] 500 mg PO DAILY #30 tablet 12/13/18 Gabapentin [Neurontin] 600 mg PO TID #90 tablet 12/13/18 Vitamin B Complex 1 each PO DAILY #30 capsule 12/13/18 Cholecalciferol (Vitamin D3) 5,000 unit PO DAILY #30 tab.rapdis 01/15/19 [Vitamin D3] Oxycodone HCl/Acetaminophen 1 each PO QID PRN #120 tablet MDD 4 01/15/19 [Percocet 10-325 mg Tablet] Polyethylene Glycol 3350 [Miralax 17 gm PO BID #1 bottle 01/15/19 119 gm Btl -] Lactose-Reduced Food [Ensure 1 can PO TID #90 liquid 01/19/19 Liquid] Abnormal Lab Results 02/02/19 17:00 Potassium 3.4 L Chloride 110 H Anion Gap 3 L AST 163 H ALT 95 H Alkaline Phosphatase 139 H ASSESSMENT AND PLAN: 1. Cholelithiasis with Possible Cholecystitis - Sonogram of abdomen revealed cholelithiasis, distended gall bladder with thickened mchugh and CBD diameter of 0.6cm. Will get an MRCP, treat her with Aztreonam and Clindamycin; consult GI and Surgery, keep her NPO, use IV morphine fro pain control, get CXR and EKG. Hypokalemia is unexplained. Will check serum Mg+ and give IV KCL. Continue comprehensive care of all her comorbid conditions including Atripla for HIV disease. 2. DVT prophylaxis - SCD 3. Advance directives - Full code HEENT: No Jaundice, eye redness or discharge, PERRLA, EOMI. Normocephalic, atraumatic. External ears are normal and hearing is grossly intact. No nasal discharge. Neck: Supple, nontender. No palpable adenopathy or thyromegaly. No JVD Chest: Good effort. Clear to auscultation and percussion. Heart: Regular. No S3, rub or murmur Abdomen: Not distended, soft, nontender and no HSM. No rebound or guarding. Normal bowel sounds. Ext: Peripheral pulses intact. No leg edema. Skin: Warm and dry. No petechiae, rash or ecchymosis. Neuro: Alert. Oriented x3. CN 2-12 grossly intact. Sensation grossly intact in all four extremities and DTR are symmetric. Psych: Appropriate mood and affect. Good insight. Hypoalbuminemia - Possibly due to combined effects of malnutrition and inflammation associated with comorbid chronic conditions. Will ensure adequate dietary protein intake and also consult instrument mechanics supervisor. DM For now, we will hold the home diabetes drugs and implement sliding scale insulin regimen. Provide comprehensive diabetes care with patient teaching and counseling about the importance of adherence to prescribed diabetes regimen, euglycemia, eye care and foot care. Tobacco Use Counseled on risks associated with tobacco use. We will provide patient all the necessary assistance to facilitate smoking cessation and prescribe Nicotine patch. Will consult nephrology and avoid nephrotoxic agents such as NSAIDS, aminoglycosides, contrast dyes and certain Alternative medicine products. Anemia -Do basic anemia work up including serial stool guaiacs, reticulocyte count and iron studies. Would benefit from Procrit therapy once iron replete. Obesity Counseled on the risks associated with obesity. Will provide patient all the necessary assistance, counseling and positive reinforcement to facilitate weight loss. Consult instrument mechanics supervisor. Alcohol abuse - Implement [facility] alcohol withdrawal protocol and do neurochecks. Implement seizure, fall and aspiration precautions. Treat with thiamine and folic acid and monitor electrolytes (Ca,Mg,K,P). Counseled patient about abstaining from alcohol. Will consult skin care specialist and refer to alcohol detox upon discharge. Hypertension - Restart suitable outpatient antihypertensive drugs when clinically appropriate. Revise regimen to ensure [id number] excellent BP control and domestic violence counselor patient on the injurious effects of uncontrolled hypertension. Nonpharmacologic measures to control hypertension like weight loss , salt restriction and exercise discussed. Importance of adherence to treatment regimen and attainment of normotension emphasized. DVT prophylaxis - Lovenox 40 mg SQ q 24 hours. Heparin 5000u sq tid. Advance directives - Full code
[2019-02-02] MEDS ORDERED: SODIUM CHLORIDE 1,000 ML IV SCH (20:00)
[2019-02-02] MEDS ORDERED: MORPHINE SULFATE 2 MG/ML VIAL IM PRN (21:29)
[2019-02-02] MEDS ORDERED: AZTREONAM 1 GM in DEXTROSE 5%-WATER - 50 ML IVPB SCH (21:30)
[2019-02-02] MEDS ORDERED: DEXTROSE 5%-WATER - 50 ML IVPB ONE (22:00)
[2019-02-02] MEDS ORDERED: AZTREONAM 1 GM VIAL (RESTRICTED TO ID) ONE (22:00)
[2019-02-02] MEDS: KCL 10 MEQ IVPB 10 MEQ/100 ML INFUS.BAG IVPB SCH (23:26)
--- NOTE | 2019-02-03 00:38 | HP ---
CHIEF COMPLAINT: RUQ abdominal pain radiating to the back PCP: Dr. Alisson Guaman HISTORY OF PRESENT ILLNESS: Ms. Bolden is a 58 year old woman with a past medical history of gallstones, HIV ( on atripla, per patient's report viral load is undetectable), and morbid obesity (s/p lap gastric sleeve last year by Dr. Warren; has lost 140+ lbs) who presented to the ED with 3 days of RUQ associated with n/v and decreased appetite. Patient reports that fatty foods seem to make her symptoms acutely worse. The patient reports that she has had vomiting regularly since she had her gastric sleeve placed and reports she is unsure if the vomiting she is experiencing now is due to her old symptoms or her acutely worsening abdominal pain. The patient states that next week she was supposed to have a doppler of the celiac axis blood flow during inspiration and expiration to assess for median arcuate syndrome. ER course was notable for: (1) bedside biliary ultrasound with + nunes's sign, biliary stones, and distended GB. No pericholecystic free fluid was noted (2)contact Dr Hu prior gastric sleeve bypass, who is away on vacation. requests cushion maker surgery here, who is Gabe Negron (3) CBC, CMP, PT/INR obtained Recent Travel: denies PAST MEDICAL HISTORY: HIV, gallstones, obesity s/p gastric sleeve PAST SURGICAL HISTORY: gastric sleeve (jul 2017), multiple back surgeries (2012 , 2013, 2015) Social History: Smoking: previous 1.5ppd smoker, quit 6 years ago Alcohol: denies Drugs: denies Family History: Allergies cephalexin monohydrate [From Keflex] Allergy (Severe, Verified 02/02/19 16:24) Hives Penicillins Allergy (Severe, Verified 02/02/19 16:24) Hives lactose [Lactose] Allergy (Mild, Verified 02/02/19 16:24) diarrhea metronidazole [From Flagyl] Adverse Reaction (Intermediate, Verified 02/02/19 16 :24) Rash HOME MEDICATIONS: Home Medications Medication Instructions Recorded Calcium Carbonate [Calcium] 500 mg PO DAILY #30 tablet 09/28/17 Omeprazole 20 mg PO DAILY PRN #30 capsule. 11/23/17 MDD 1 Efavirenz/Emtricitab/Tenofovir 1 tab PO DAILY #30 tab 06/27/18 [Atripla Tablet -] Acetaminophen 325 mg PO BID PRN #60 tablet 09/13/18 Multivitamin [Multiple Vitamins] 1 each PO DAILY #30 tablet 10/13/18 Cetirizine HCl [Zyrtec -] 10 mg PO DAILY #30 tablet 11/01/18 Diphenhydramine [Benadryl Capsule 50 mg PO BID PRN #60 capsule 11/16/18 -] Ascorbic Acid [Vitamin C -] 500 mg PO DAILY #30 tablet 12/13/18 Gabapentin [Neurontin] 600 mg PO TID #90 tablet 12/13/18 Vitamin B Complex 1 each PO DAILY #30 capsule 12/13/18 Cholecalciferol (Vitamin D3) 5,000 unit PO DAILY #30 tab.rapdis 01/15/19 [Vitamin D3] Oxycodone HCl/Acetaminophen 1 each PO QID PRN #120 tablet MDD 4 01/15/19 [Percocet 10-325 mg Tablet] Polyethylene Glycol 3350 [Miralax 17 gm PO BID #1 bottle 01/15/19 119 gm Btl -] Lactose-Reduced Food [Ensure 1 can PO TID #90 liquid 01/19/19 Liquid] REVIEW OF SYSTEMS CONSTITUTIONAL: malaise, loss of appetite Absent: fever, chills, diaphoresis, generalized weakness, weight change HEENT: Absent: rhinorrhea, nasal congestion, throat pain, throat swelling, difficulty swallowing, mouth swelling, ear pain, eye pain, visual changes CARDIOVASCULAR: Absent: chest pain, syncope, palpitations, irregular heart rate, lightheadedness , peripheral edema RESPIRATORY: Absent: cough, shortness of breath, dyspnea with exertion, orthopnea, wheezing, stridor, hemoptysis GASTROINTESTINAL: abdominal pain, nausea, vomiting, very dark stools but not bloody Absent: abdominal distension, diarrhea, constipation, melena, hematochezia GENITOURINARY: Absent: dysuria, frequency, urgency, hesitancy, hematuria, flank pain, genital pain MUSCULOSKELETAL: Absent: myalgia, arthralgia, joint swelling, back pain, neck pain SKIN: Absent: rash, itching, pallor HEMATOLOGIC/IMMUNOLOGIC: Absent: easy bleeding, easy bruising, lymphadenopathy, frequent infections ENDOCRINE: Absent: unexplained weight gain, unexplained weight loss, heat intolerance, cold intolerance NEUROLOGIC: Absent: headache, focal weakness or paresthesias, dizziness, unsteady gait, seizure, mental status changes, bladder or bowel incontinence PSYCHIATRIC: Absent: anxiety, depression, suicidal or homicidal ideation, hallucinations. PHYSICAL EXAMINATION Vital Signs - 24 hr 02/02/19 02/02/19 02/02/19 16:25 19:32 20:03 Temperature 98.1 F 98.6 F Pulse Rate 69 Pulse Rate [ 56 L Right Radial] Respiratory 17 Rate Blood Pressure 105/44 L Blood Pressure 99/57 L [Right Arm] O2 Sat by Pulse 99 94 L 98 Oximetry (%) 02/02/19 02/03/19 22:59 00:08 Temperature 98.6 F Pulse Rate 52 L Pulse Rate [ Right Radial] Respiratory 16 16 Rate Blood Pressure 103/52 L Blood Pressure [Right Arm] O2 Sat by Pulse 98 Oximetry (%) GENERAL: Awake, alert, and fully oriented, in mild distress. HEAD: Normal with no signs of trauma. EYES: Pupils equal, round and reactive to light, extraocular movements intact, sclera anicteric, conjunctiva clear. No lid lag. EARS, NOSE, THROAT: Ears normal, nares patent, oropharynx clear without exudates. Moist mucous membranes. NECK: Normal range of motion, supple without lymphadenopathy, JVD, or masses. LUNGS: Breath sounds equal, clear to auscultation bilaterally. No wheezes, and no crackles. No accessory muscle use. HEART: Regular rate and rhythm, normal S1 and S2 without murmur. ABDOMEN: Soft, tender to deep palpation diffusely in all 4 quadrants. Tender to light palpation in RUQ and RLQ, positive nunes's sign MUSCULOSKELETAL: Normal range of motion at all joints. No bony deformities or tenderness. No CVA tenderness. UPPER EXTREMITIES: 2+ pulses, warm, well-perfused. No peripheral edema. LOWER EXTREMITIES: 2+ pulses, warm, well-perfused. No peripheral edema. NEUROLOGICAL: Cranial nerves II-XII intact. Normal speech. Gait not observed PSYCHIATRIC: Cooperative. Good eye contact. Appropriate mood and affect. SKIN: Warm, dry, normal turgor, no rashes or lesions noted, normal capillary refill. Laboratory Results - last 24 hr 02/02/19 02/02/19 02/02/19 17:00 17:00 17:00 WBC 5.8 RBC 4.02 Hgb 12.1 Hct 37.7 D MCV 93.9 MCH 30.1 MCHC 32.0 RDW 14.7 Plt Count 240 D MPV 9.7 Absolute Neuts (auto) 3.7 Neutrophils % 63.5 D Lymphocytes % 25.2 D Monocytes % 8.8 Eosinophils % 1.7 Basophils % 0.8 Nucleated RBC % 0 PT with INR INR Sodium 144 Potassium 3.4 L Chloride 110 H Carbon Dioxide 32 Anion Gap 3 L BUN 12.1 Creatinine 0.8 Est GFR (CKD-EPI)AfAm 95.52 Est GFR (CKD-EPI)NonAf 82.42 Random Glucose 104 Calcium 9.0 Magnesium Total Bilirubin 0.7 AST 163 H ALT 95 H Alkaline Phosphatase 139 H Total Protein 7.0 Albumin 3.9 Lipase 123 Urine Color Urine Appearance Urine pH Ur Specific [place] Urine Protein Urine Glucose (UA) Urine Ketones Urine Blood Urine Nitrite Urine Bilirubin Urine Urobilinogen Ur Leukocyte Esterase Urine WBC (Auto) Urine RBC (Auto) Urine Casts (Auto) U Epithel Cells (Auto) Urine Bacteria (Auto) Blood Type Antibody Screen 02/02/19 02/02/19 02/02/19 17:00 17:00 17:00 WBC RBC Hgb Hct MCV MCH MCHC RDW Plt Count MPV Absolute Neuts (auto) Neutrophils % Lymphocytes % Monocytes % Eosinophils % Basophils % Nucleated RBC % PT with INR 12.40 INR 1.05 Sodium Potassium Chloride Carbon Dioxide Anion Gap BUN Creatinine Est GFR (CKD-EPI)AfAm Est GFR (CKD-EPI)NonAf Random Glucose Calcium Magnesium Total Bilirubin AST ALT Alkaline Phosphatase Total Protein Albumin Lipase Urine Color Yellow Urine Appearance Error Urine pH 6.0 Ur Specific [place] 1.014 Urine Protein Negative Urine Glucose (UA) Negative Urine Ketones Negative Urine Blood Negative Urine Nitrite Negative Urine Bilirubin Negative Urine Urobilinogen 0.2 Ur Leukocyte Esterase Trace Urine WBC (Auto) 2 Urine RBC (Auto) 1 Urine Casts (Auto) 5 U Epithel Cells (Auto) 4.2 Urine Bacteria (Auto) 63.0 Blood Type O POSITIVE Antibody Screen Negative 02/02/19 17:00 WBC RBC Hgb Hct MCV MCH MCHC RDW Plt Count MPV Absolute Neuts (auto) Neutrophils % Lymphocytes % Monocytes % Eosinophils % Basophils % Nucleated RBC % PT with INR INR Sodium Potassium Chloride Carbon Dioxide Anion Gap BUN Creatinine Est GFR (CKD-EPI)AfAm Est GFR (CKD-EPI)NonAf Random Glucose Calcium Magnesium 2.2 Total Bilirubin AST ALT Alkaline Phosphatase Total Protein Albumin Lipase Urine Color Urine Appearance Urine pH Ur Specific [place] Urine Protein Urine Glucose (UA) Urine Ketones Urine Blood Urine Nitrite Urine Bilirubin Urine Urobilinogen Ur Leukocyte Esterase Urine WBC (Auto) Urine RBC (Auto) Urine Casts (Auto) U Epithel Cells (Auto) Urine Bacteria (Auto) Blood Type Antibody Screen Current Medications ASSESSMENT/PLAN: Ms. Bolden is a 58 year old woman with a past medical history of gallstones, HIV ( on atripla, per patient's report viral load is undetectable), and morbid obesity (s/p lap gastric sleeve last year by Dr. Warren; has lost 140+ lbs) who presented to the ED with 3 days of RUQ associated with n/v and decreased appetite concerning for acute cholecystitis. #Cholelithiasis with concern for acute cholecystitis - Obtain and F/U EKG - Obtain MRCP - Replete K+ - Check Mg2+ - Aztreonam 1 gm/ Dextrose 50 mls @ 100 mls/hr IVPB Q8H - Consult GI - F/U surgery # Pain Morphine Sulfate 2 mg IV Q6H PRN #FEN - Normal Saline 75cc/hr - Monitor lytes replete PRN - NPO incase need for surgery, can resume diet if not a surgical candidate # HIV - Patient on atripla at home, did not bring meds to hospital - F/U with pharmacy on how to obtain meds if patient needs an extended stay #PPX - Lovenox 40 mg SQ DAILY #Dispo: admit to medsurg, monitor overnite Visit type - Emergency Visit Emergency Visit: Yes ED Registration Date: 02/02/19 Care time: The patient presented to the Emergency Department on the above date and was hospitalized for further evaluation of their emergent condition. - New Patient This patient is new to me today: Yes Date on this admission: 02/03/19 - Critical Care Critical Care patient: No ATTENDING PHYSICIAN STATEMENT I saw and evaluated the patient. I reviewed the resident's note and discussed the case with the resident. I agree with the resident's findings and plan as documented. SUBJECTIVE: OBJECTIVE: ASSESSMENT AND PLAN:
[2019-02-03] MEDS: KCL 10 MEQ IVPB 10 MEQ/100 ML INFUS.BAG IVPB SCH (00:54)
[2019-02-03] MEDS ORDERED: MORPHINE SULFATE 2 MG/ML VIAL IV PRN (02:19)
[2019-02-03] MEDS ORDERED: DEXTROSE 5%-WATER - 50 ML IVPB ONE (05:16)
[2019-02-03] MEDS ORDERED: AZTREONAM 1 GM VIAL (RESTRICTED TO ID) ONE (05:16)
[2019-02-03] MEDS: AZTREONAM 1 GM in DEXTROSE 5%-WATER - 50 ML IVPB SCH ×2 (06:03)
[2019-02-03 06:14] VITALS: BP 104/59; PULSE 54; TEMP 97.8
[2019-02-03 09:19] LABS: BASO % 0.9 % (0-2.0); EOS % 3.8 % (0-4.5); HEMATOCRIT 27.8 % (32.4-45.2); HEMOGLOBIN 9.1 GM/dL (10.7-15.3); LYMPH % 49.6 % (8-40); MCH 30.9 pg (25.7-33.7); MCHC 32.8 g/dl (32.0-36.0); MEAN CELL VOLUME 94.3 fl (80-96); MEAN PLT VOLUME 9.6 fl (7.5-11.1); MONO % 9.1 % (3.8-10.2); NEUT % 36.6 % (42.8-82.8); PLATELET COUNT 170 K/MM3 (134-434); RBC 2.94 M/mm3 (3.60-5.2); RDW 15.1 % (11.6-15.6); WHITE BLOOD COUNT 2.9 K/mm3 (4.0-10.0)
[2019-02-03 09:46] LABS: ALBUMIN 2.6 g/dl (3.4-5.0); BILIRUBIN,TOTAL 0.5 mg/dL (0.2-1); BLOOD UREA NITROGEN 8.9 mg/dL (7-18); CALCIUM 7.9 mg/dL (8.5-10.1); CREATININE 0.5 mg/dL (0.55-1.3); MAGNESIUM 1.9 mg/dL (1.8-2.4); POTASSIUM 3.8 mmol/L (3.5-5.1)
[2019-02-03 09:47] LABS: TOT PROT 4.9 g/dl (6.4-8.2)
[2019-02-03] MEDS ORDERED: ENOXAPARIN NA (PORCINE) 40 MG/0.4 ML DISP.SYRIN SQ SCH (10:00)
--- NOTE | 2019-02-03 11:30 | EKG ---
Test Reason : Blood Pressure : / mmHG Vent. Rate : 052 BPM Atrial Rate : 052 BPM P-R Int : 150 ms QRS Dur : 082 ms QT Int : 434 ms P-R-T Axes : 057 044 031 degrees QTc Int : 403 ms SINUS BRADYCARDIA OTHERWISE NORMAL ECG WHEN COMPARED WITH ECG OF 27-NOV-2018 23:30, NO SIGNIFICANT CHANGE WAS FOUND Confirmed by NANCY LEES MD ([id number]) on 02/03/2019 11:30:28 AM Referred By: FAHEEM Confirmed By:NANCY LEES MD
--- NOTE | 2019-02-03 14:01 | PN ---
Progress Note (short form) - Note Progress Note: manager call center resident paged to attend to pt whom would like to leave against medical advice. Upon assessment pt expresses that she would like to leave the hospital and does not want to cont. medical management. She was educated on possible risk of permanent disability, worsening condition, sepsis, and/or . Pt counseled to return to nearest emergency department if experiencing concerning symptoms. Pt verbalized understanding and signed AMA form and witnessed by RN.
--- NOTE | 2019-02-03 14:46 | DS ---
Physical Exam: SUBJECTIVE: Patient signed against medical advice without being examined or interviewed. The risks were explained to her by the resident; fever , infection , sepsis and . OBJECTIVE: Vital Signs Temperature 97.8 F 02/03/19 06:00 Pulse Rate 54 L 02/03/19 06:00 Respiratory Rate 18 02/03/19 09:00 Blood Pressure 104/59 L 02/03/19 06:00 O2 Sat by Pulse Oximetry (%) 99 02/03/19 09:00 LABS Laboratory Results - last 24 hr 02/02/19 02/02/19 02/02/19 17:00 17:00 17:00 WBC 5.8 RBC 4.02 Hgb 12.1 Hct 37.7 D MCV 93.9 MCH 30.1 MCHC 32.0 RDW 14.7 Plt Count 240 D MPV 9.7 Absolute Neuts (auto) 3.7 Neutrophils % 63.5 D Lymphocytes % 25.2 D Monocytes % 8.8 Eosinophils % 1.7 Basophils % 0.8 Nucleated RBC % 0 PT with INR INR Sodium 144 Potassium 3.4 L Chloride 110 H Carbon Dioxide 32 Anion Gap 3 L BUN 12.1 Creatinine 0.8 Est GFR (CKD-EPI)AfAm 95.52 Est GFR (CKD-EPI)NonAf 82.42 Random Glucose 104 Calcium 9.0 Magnesium Total Bilirubin 0.7 AST 163 H ALT 95 H Alkaline Phosphatase 139 H Total Protein 7.0 Albumin 3.9 Lipase 123 Urine Color Urine Appearance Urine pH Ur Specific [place] Urine Protein Urine Glucose (UA) Urine Ketones Urine Blood Urine Nitrite Urine Bilirubin Urine Urobilinogen Ur Leukocyte Esterase Urine WBC (Auto) Urine RBC (Auto) Urine Casts (Auto) U Epithel Cells (Auto) Urine Bacteria (Auto) Blood Type Antibody Screen 02/02/19 02/02/19 02/02/19 17:00 17:00 17:00 WBC RBC Hgb Hct MCV MCH MCHC RDW Plt Count MPV Absolute Neuts (auto) Neutrophils % Lymphocytes % Monocytes % Eosinophils % Basophils % Nucleated RBC % PT with INR 12.40 INR 1.05 Sodium Potassium Chloride Carbon Dioxide Anion Gap BUN Creatinine Est GFR (CKD-EPI)AfAm Est GFR (CKD-EPI)NonAf Random Glucose Calcium Magnesium Total Bilirubin AST ALT Alkaline Phosphatase Total Protein Albumin Lipase Urine Color Yellow Urine Appearance Error Urine pH 6.0 Ur Specific [place] 1.014 Urine Protein Negative Urine Glucose (UA) Negative Urine Ketones Negative Urine Blood Negative Urine Nitrite Negative Urine Bilirubin Negative Urine Urobilinogen 0.2 Ur Leukocyte Esterase Trace Urine WBC (Auto) 2 Urine RBC (Auto) 1 Urine Casts (Auto) 5 U Epithel Cells (Auto) 4.2 Urine Bacteria (Auto) 63.0 Blood Type O POSITIVE Antibody Screen Negative 02/02/19 02/03/19 02/03/19 17:00 07:45 07:45 WBC 2.9 L RBC 2.94 L Hgb 9.1 L Hct 27.8 L D MCV 94.3 MCH 30.9 MCHC 32.8 RDW 15.1 Plt Count 170 D MPV 9.6 Absolute Neuts (auto) 1.1 L Neutrophils % 36.6 L D Lymphocytes % 49.6 H D Monocytes % 9.1 Eosinophils % 3.8 D Basophils % 0.9 Nucleated RBC % 0 PT with INR INR Sodium 145 Potassium 3.8 Chloride 114 H Carbon Dioxide 28 Anion Gap 3 L BUN 8.9 Creatinine 0.5 L Est GFR (CKD-EPI)AfAm 125.40 Est GFR (CKD-EPI)NonAf 108.19 Random Glucose 78 Calcium 7.9 L Magnesium 2.2 1.9 Total Bilirubin 0.5 AST 140 H ALT 129 H Alkaline Phosphatase 108 Total Protein 4.9 L Albumin 2.6 L Lipase Urine Color Urine Appearance Urine pH Ur Specific [place] Urine Protein Urine Glucose (UA) Urine Ketones Urine Blood Urine Nitrite Urine Bilirubin Urine Urobilinogen Ur Leukocyte Esterase Urine WBC (Auto) Urine RBC (Auto) Urine Casts (Auto) U Epithel Cells (Auto) Urine Bacteria (Auto) Blood Type Antibody Screen HOSPITAL COURSE: Date of Admission:02/02/19 Date of Discharge: 02/03/19 Minutes to complete discharge: 15 Discharge Summary Reason For Visit: RIGHT UPPER QUADRANT ABDOMINAL PAIN, CHOLECYSTITIS Condition: Guarded - Instructions Disposition: AGAINST MEDICAL ADVICE - Home Medications Comprehensive Discharge Medication List: Ambulatory Orders Calcium Carbonate [Calcium] 500 mg PO DAILY #30 tablet 09/28/17 Omeprazole 20 mg PO DAILY PRN #30 capsule.dr MATOS 1 11/23/17 Efavirenz/Emtricitab/Tenofovir [Atripla Tablet -] 1 tab PO DAILY #30 tab Multivitamin [Multiple Vitamins] 1 each PO DAILY #30 tablet 10/13/18 Ascorbic Acid [Vitamin C -] 500 mg PO DAILY #30 tablet 12/13/18 Gabapentin [Neurontin] 600 mg PO TID #90 tablet 12/13/18 Vitamin B Complex 1 each PO DAILY #30 capsule 12/13/18 Cholecalciferol (Vitamin D3) [Vitamin D3] 5,000 unit PO DAILY #30 tab.rapdis 05/24 Lactose-Reduced Food [Ensure Liquid] 1 can PO TID #90 liquid 01/19/19 Acetaminophen 650 mg PO BID PRN 02/03/19 Diphenhydramine [Benadryl Capsule -] 50 mg PO HS 02/03/19 Oxycodone HCl/Acetaminophen [Percocet 10-325 mg Tablet] 10 mg PO QID MDD 4 02/03 Polyethylene Glycol 3350 [Miralax 119 gm Btl -] 17 gm PO HS 02/03/19 This patient is new to me today: Yes Date on this admission: 02/03/19 Emergency Visit: No Critical Care patient: No - Discharge Referral Referred to [facility] No
== END 2019-02-03 11:42 | disposition left against medical advice (07) ==
LOC: JER 16:14 → JERBED 18:08 → J6S 21:24
PROVIDERS: ADMIT Internal Medicine; ATTEND Internal Medicine
DX: K80.00 Calculus of gallbladder with acute cholecystitis without obstruction (principal); R10.11 Right upper quadrant pain; E66.8 Other obesity; Z68.26 Body mass index [BMI] 26.0-26.9, adult; Z21 Asymptomatic human immunodeficiency virus [HIV] infection status; E87.6 Hypokalemia; Z88.0 Allergy status to penicillin; Z87.891 Personal history of nicotine dependence; Z98.84 Bariatric surgery status
CPT/HCPCS: 36415; 74182-TC; 76705-TC; 80053; 81003; 83690; 83735; 85025; 85610; 86850; 86900; 86901; 93005; 93010; 99284-25; A9579; J0131; J7030

== ENCOUNTER 2019-02-03 15:52 | Inpatient (IN) | payer OTHER ==
[2019-02-03] MEDS ORDERED: SODIUM CHLORIDE 1,000 ML IV STA (16:42)
[2019-02-03] MEDS ORDERED: morphine CARPU-JECT 4 MG/1 ML DISP.SYRIN IVPUSH ONE ×2 (16:42→22:29)
--- NOTE | 2019-02-03 16:42 | PDOC ---
History of Present Illness - General Chief Complaint: Pain Stated Complaint: CHEST PAIN Time Seen by Provider: 02/03/19 16:15 History Source: Patient Exam Limitations: No Limitations - History of Present Illness Initial Comments: Patient here same reason as yesterday. Had to sign out AMA this morning bc neighbor called her and said her animals were going crazy and she is only one with hoffmann to her house. She now has a ticket dispatcher for her animals for the next 10 days. She states nothing has changed from yesterday. Will do labs and same workup as yesterday then admit to hospital. Alycia Bolden is a 58 yo F w a hx of gallstones, HIV, morbid obesity s/p lap gastric sleeve last year (by Dr. Warren; has lost 140+ lbs) who presents to the [facility] ER because she has been experiencing 4 days of sharp and intense RUQ abdominal pain which radiates to the back and shoulder. She endorses non-stop pain and says its gotten worse since yesterday. Multiple episodes of NBNB vomitus. Yesterday she was seen in ER and diagnosed with cholelithiasis and borderline cholecystitis. MRCP is needed to assess her dilated CBD Patient denies fevers, diarrhea, constipation, or chills. PCP: Alisson Guaman GI: Geronimo Pike Surgery: Dr. Warren + Dr. Persaud PSH: laparoscopic gastric sleeve 07/24 ([facility]), multiple spinal surgeries, gastric sleeve dilatations, and salpingectomy Social Hx: Denies current smoking, drinking or toxic habits. former smoker 50+ pack year hx. Takes 4 percocets daily. Allergies: Keflex, penicillins, lactose, metronidazole Past History - Past Medical History Allergies/Adverse Reactions: Allergies Allergy/AdvReac Type Severity Reaction Status Date / Time cephalexin monohydrate Allergy Severe Hives Verified 02/03/19 15:57 [From Keflex] Penicillins Allergy Severe Hives Verified 02/03/19 15:57 lactose [Lactose] Allergy Mild diarrhea Verified 02/03/19 15:57 metronidazole [From Flagyl] AdvReac Intermediate Rash Verified 02/03/19 15:57 Home Medications: Ambulatory Orders Calcium Carbonate [Calcium] 500 mg PO DAILY #30 tablet 09/28/17 Omeprazole 20 mg PO DAILY PRN #[address] MATOS 1 11/23/17 Efavirenz/Emtricitab/Tenofovir [Atripla Tablet -] 1 tab PO DAILY #30 tab Multivitamin [Multiple Vitamins] 1 each PO DAILY #30 tablet 10/13/18 Ascorbic Acid [Vitamin C -] 500 mg PO DAILY #30 tablet 12/13/18 Gabapentin [Neurontin] 600 mg PO TID #90 tablet 12/13/18 Vitamin B Complex 1 each PO DAILY #30 capsule 12/13/18 Cholecalciferol (Vitamin D3) [Vitamin D3] 5,000 unit PO DAILY #30 tab.rapdis 05/24 Lactose-Reduced Food [Ensure Liquid] 1 can PO TID #90 liquid 01/19/19 Acetaminophen 650 mg PO BID PRN 02/03/19 Diphenhydramine [Benadryl Capsule -] 50 mg PO HS 02/03/19 Oxycodone HCl/Acetaminophen [Percocet 10-325 mg Tablet] 10 mg PO QID MDD 4 02/03 Polyethylene Glycol 3350 [Miralax 119 gm Btl -] 17 gm PO HS 02/03/19 Anemia: No Asthma: No Cancer: No Cardiac Disorders: No CVA: No COPD: No CHF: No Dementia: No Diabetes: No (Yes to Family History) GI Disorders: Yes (vomiting) Disorders: No HTN: No Hypercholesterolemia: No Liver Disease: No Psychiatric Problems: No (Not before the surgery) Seizures: No Thyroid Disease: No - Surgical History Abdominal Surgery: Yes (benign tumor removed 2004) Appendectomy: No Cardiac Surgery: No Cholecystectomy: No Lung Surgery: No Neurologic Surgery: Yes (BACK SX - X 3; [id number]) Orthopedic Surgery: Yes (LEFT KNEE SURGERY TORN MENISCUS, back surgery, r shoulder surgery 2014) - Immunization History Immunization Up to Date: Yes - Suicide/Smoking/Psychosocial Hx Smoking Status: Yes Smoking History: Never smoked Have you smoked in the past 12 months: No Number of Cigarettes Smoked Daily: 1 If you are a former smoker, when did you quit?: 6YRS Cigars Per Day: 0 'Breaking Loose' booklet given: 06/05/15 Hx Alcohol Use: No Drug/Substance Use Hx: No Substance Use Type: None Hx Substance Use Treatment: No Review of Systems - Review of Systems Able to Perform ROS?: Yes Comments:: CONSTITUTIONAL: Present: malaise, loss of appetite Absent: fever, chills, diaphoresis, generalized weakness HEENT: Absent: rhinorrhea, nasal congestion, throat pain, throat swelling, difficulty swallowing, mouth swelling, ear pain, eye pain, visual Changes CARDIOVASCULAR: Absent: chest pain, syncope, palpitations, irregular heart rate, lightheadedness , peripheral edema RESPIRATORY: Absent: cough, shortness of breath, dyspnea with exertion, orthopnea, wheezing, stridor, hemoptysis GASTROINTESTINAL: Present: abdominal pain, abdominal distension, nausea, vomiting Absent: diarrhea, constipation, melena, hematochezia GENITOURINARY: Absent: dysuria, frequency, urgency, hesitancy, hematuria, flank pain, genital pain MUSCULOSKELETAL: Absent: myalgia, arthralgia, joint swelling SKIN: Absent: rash, itching, pallor HEMATOLOGIC/IMMUNOLOGIC: Absent: easy bleeding, easy bruising, lymphadenopathy, frequent infections ENDOCRINE: Absent: unexplained weight gain, unexplained weight loss, heat intolerance, cold intolerance NEUROLOGIC: Absent: headache, focal weakness or paresthesias, dizziness, unsteady gait, seizure, mental status changes, bladder or bowel incontinence PSYCHIATRIC: Absent: anxiety, depression, suicidal or homicidal ideation, hallucinations. *Physical Exam - Vital Signs Last Vital Signs Temp Pulse Resp BP Pulse Ox 98 F 61 18 114/59 L 99 02/03/19 15:54 02/03/19 15:54 02/03/19 15:54 02/03/19 15:54 02/03/19 15:54 - Physical Exam Comments: GENERAL: Patient appears to be in a significant amount of pain. Well developed, well nourished. Awake and alert. moderate distress. HEENT: Normocephalic, atraumatic. PERRLA, EOMI. No conjunctival pallor. Dry mucous membranes. Oropharynx is clear. NECK: Supple. Full ROM. CARDIOVASCULAR: Regular rate and rhythm. No murmurs, rubs, or gallops. Distal pulses are 2+ and symmetric. PULMONARY: No evidence of respiratory distress. Lungs clear to auscultation bilaterally. No wheezing, rales or rhonchi. ABDOMINAL: There is a significant amount of RUQ abdominal TTP. + nunes sign. + Sonographic nunes sign. No rebound or guarding. Normoactive bowel sounds. MUSCULOSKELETAL Normal range of motion at all joints. No bony deformities or tenderness. No CVA tenderness. EXTREMITIES: No cyanosis. No clubbing. No edema. No calf tenderness. SKIN: Warm and dry. Normal capillary refill. No rashes. No jaundice. NEUROLOGICAL: Alert, awake, appropriate. Normal speech. Gait is normal without ataxia. PSYCHIATRIC: Cooperative. Good eye contact. Appropriate mood and affect. ED Treatment Course - LABORATORY CBC & Chemistry Diagram: 02/03/19 17:27 02/03/19 17:27 Medical Decision Making - Medical Decision Making Patient here same reason as yesterday. Had to sign out AMA this morning bc neighbor called her and said her animals were going crazy and she is only one with hoffmann to her house. She now has a ticket dispatcher for her animals for the next 10 days. She states nothing has changed from yesterday. Will do labs and same workup as yesterday then admit to hospital. Alycia Bolden is a 58 yo F w a hx of gallstones, HIV, morbid obesity s/p lap gastric sleeve last year (by Dr. Warren; has lost 140+ lbs) who presents to the [facility] ER because she has been experiencing 4 days of sharp and intense RUQ abdominal pain which radiates to the back and shoulder. She endorses non-stop pain and says its gotten worse since yesterday. Multiple episodes of NBNB vomitus. Yesterday she was seen in ER and diagnosed with cholelithiasis and borderline cholecystitis. MRCP is needed to assess her dilated CBD Vital Signs Temp Pulse Resp BP Pulse Ox 98 F 61 18 114/59 L 99 02/03/19 15:54 02/03/19 15:54 02/03/19 15:54 02/03/19 15:54 02/03/19 15:54 MDM: Patient here with similar presentation to yesterday. Plan: Will obtain labs, urine, EKG, RUQ US. Morphine for analgesia, zofran for anti-emetic. - Today we will obtain a CT with oral and IV contrast to assess for closed loop bowel obstruction. - If the CT is abnormal and requires bariatric surgical intervention Dr. Laguerre will need to be contacted as he is the only bariatric surgeon who operates at [facility]. If Dr. Laguerre cannot come in patient will need to be transferred. - If CT shows no immediae surgical complications patient will be admitted to Dr. Alamo's service in the hospital. Patient will be signed out to Dr. Quezada to finish ED visit and final disposition. *DC/Admit/Observation/Transfer Diagnosis at time of Disposition: RUQ pain Cholelithiasis Qualifiers: Cholelithiasis location: gallbladder Cholecystitis presence: without cholecystitis Biliary obstruction: without biliary obstruction Qualified Code(s) : K80.20 - Calculus of gallbladder without cholecystitis without obstruction Nausea & vomiting Qualifiers: Vomiting type: unspecified Vomiting Intractability: non-intractable Qualified Code(s): R11.2 - Nausea with vomiting, unspecified - Discharge Dispostion Condition at time of disposition: Stable Decision to Admit order: Yes - Referrals - Patient Instructions - Post Discharge Activity
[2019-02-03] MEDS ORDERED: ONDANSETRON 4 MG/2 ML VIAL IVPUSH ONE (16:44)
[2019-02-03] MEDS ORDERED: MAG HYDROX/AL HYDROX/SIMETH -MYLANTA- ORAL SUSPENSION PO ONE (16:54)
[2019-02-03] MEDS ORDERED: FAMOTIDINE 20 MG/50 ML IVPB 20 MG/50 ML MG IVPB ONE ×2 (16:54→18:04)
--- NOTE | 2019-02-03 17:28 | PDOC ---
Documentation entered by Los Castillo SCRIBE, acting as scribe for Nancy Melvin MD. Nancy Melvin MD: This documentation has been prepared by the Anna elmore Elijah, SCRIBE, under my direction and personally reviewed by me in its entirety. I confirm that the documentation accurately reflects all work, treatment, procedures, and medical decision making performed by me. Attending Attestation - Resident Resident Name: Cristian Rayo - ED Attending Attestation I have performed the following: I have examined & evaluated the patient, The case was reviewed & discussed with the resident, I agree w/resident's findings & plan - HPI HPI: 02/03/19 17:23 58 YOF with h/o gallstones, HIV, morbid obesity s/p lap gastric sleeve last year (by Dr. Warren; has lost 140+ lbs) who presents to the [facility] ER with RUQ pain x 3 days a/w n/v, inability to kimberly PO and decreased appetite admitted yesterday for suspected acute cholecystitis, but left AMA this morning prior to advanced imaging and specialty consultation - Physicial Exam PE: 02/03/19 17:28 Agree with the resident's HPI and PE as documented in the electronic medical record. NAD, well appearing, EOMI, PERRL, MMM, nl conjunctiva, anicteric; neck supple. lungs clear, RRR, abdomen soft +RUQ TTP, +Real's sign. Back nontender. LÓPEZ x4 , no focal neuro deficits. No peripheral edema. normal color for ethnicity, WWP. 02/03/19 17:32 - Medical Decision Making 02/03/19 17:28 hpi as documented prior notes reviewed, was seen yesterday by me and admitted for acute mariah. ama'd yesterday due to needing to take care of her dog at home. Vital Signs Temp Pulse Resp BP Pulse Ox 98 F 61 18 114/59 L 99 02/03/19 15:54 02/03/19 15:54 02/03/19 15:54 02/03/19 15:54 02/03/19 15:54 VS reviewed, wnl no fever, nontoxic appearing analgesia, NPO, antiemetics, IVF, reassess contacted Dr Arrad yesterday for prior gastric sleeve bypass, who is away on vacation this weekend. 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 LFTs elevated , uptrending mildly. lipase normal, reassuring MRCP this morning with cholelithiasis, ~6mm, but no e/o cholecystitis or choledocholithiasis. CT PO and IV contrast to check for internal hernia vs gastric outlet obstruction - spoke with hospitalist team, Dr Arndt, who was in contact with Dr Warren, CT to check for outlet obstruction, if no concern of complication from gastric sleeve, will be managed with HIDA scan. if positive, transfer vs surgical care. - Dr Persaud consulted, deferring to Dr Warren as primary surgeon and h/o gastric sleeve. - MRCP unremarkable so doubt infectious/mariah. - biliary sono here with gallstones, borderline GBW thickening, no fluid, distended GB, dysmotility vs chronic cholecystitis. CBD 9mm, increased from yesterday. CT with similar sx, no outlet obstruction, no emergent surgical indication at this time will need HIDA since neg, in the next 24-48 hrs, surgical input and further management. re-admit for acute mariah management due to persistent sx, medical vs surg management admit to hospitalist service, Dr Alamo 02/03/19 17:33 02/03/19 18:50 02/03/19 20:18 02/04/19 01:15
[2019-02-03 17:55] LABS: BASO % 0.8 % (0-2.0); EOS % 2.4 % (0-4.5); HEMATOCRIT 34.2 % (32.4-45.2); HEMOGLOBIN 11.2 GM/dL (10.7-15.3); LYMPH % 35.2 % (8-40); MCH 30.6 pg (25.7-33.7); MCHC 32.7 g/dl (32.0-36.0); MEAN CELL VOLUME 93.8 fl (80-96); MEAN PLT VOLUME 9.8 fl (7.5-11.1); MONO % 7.7 % (3.8-10.2); NEUT % 53.9 % (42.8-82.8); PLATELET COUNT 215 K/MM3 (134-434); RBC 3.64 M/mm3 (3.60-5.2); RDW 14.8 % (11.6-15.6); WHITE BLOOD COUNT 3.6 K/mm3 (4.0-10.0)
[2019-02-03 17:59] LABS: EPI CELLS 4.1 /HPF (0-5/HPF); HYALINE CASTS 9 /lpf (0-8); PH,URINE 5.5 (5.0-8.0); URINE APPEARANCE CLEAR; URINE BILIRUBIN NEGATIVE (NEGATIVE); URINE COLOR YELLOW; URINE GLUCOSE (UA) NEGATIVE (NEGATIVE); URINE KETONE 1+ (NEGATIVE); URINE LEUK ESTERASE TRACE (NEGATIVE); URINE NITRITE NEGATIVE (NEGATIVE); URINE PROTEIN NEGATIVE (NEGATIVE); URINE RBC 1 /hpf (0-4); URINE UROBILINOGEN 0.2 mg/dL (0.2-1.0); URINE WBC 1 /hpf (0-5)
[2019-02-03] MEDS ORDERED: MAG HYDROX/AL HYDROX/SIMETH 30 ML UNIT-DOSE CUP ONE (18:03)
[2019-02-03] MEDS ORDERED: morphine SULFATE 4 MG/ML VIAL ONE ×3 (18:03→22:32)
[2019-02-03] MEDS ORDERED: ONDANSETRON 4 MG/2 ML VIAL ONE (18:04)
[2019-02-03 18:11] LABS: ALBUMIN 3.7 g/dl (3.4-5.0); BILIRUBIN,TOTAL 0.6 mg/dL (0.2-1); CALCIUM 8.9 mg/dL (8.5-10.1); CREATININE 0.7 mg/dL (0.55-1.3); INR 1.08 (0.83-1.09); POTASSIUM 3.6 mmol/L (3.5-5.1); PROTHROMBIN TIME (PATIENT) 12.7 SEC (9.7-13.0); TOT PROT 6.8 g/dl (6.4-8.2)
[2019-02-03 18:14] LABS: ACTIVATED PTT 39.1 SECONDS (25.2-36.5)
[2019-02-03] MEDS ORDERED: METOCLOPRAMIDE HCL INJECTION 10 MG/2 ML VIAL IVPUSH ONE (18:16)
--- NOTE | 2019-02-03 19:01 | PDOC ---
*Physical Exam - Vital Signs Last Vital Signs Temp Pulse Resp BP Pulse Ox 98 F 61 18 114/59 L 99 02/03/19 15:54 02/03/19 15:54 02/03/19 15:54 02/03/19 15:54 02/03/19 15:54 - Physical Exam Comments: 02/03/19 19:01 received sign out from Dr. Rayo. Patient is a 58 yo F with a hx of morbid obesity, HIV, and gastric sleeve last year by Dr. Warren who presents to the emergency department with RUQ for 3x days. Per the chart, the patient was admitted yesterday for suspected acute cholecystitis but left AMA only to re-present here today. At the time of sign out, the patient had a pending abdomen pelvis CT with oral and IV contrast. ED Treatment Course - LABORATORY CBC & Chemistry Diagram: 02/07/19 05:30 02/07/19 05:30 - ADDITIONAL ORDERS Additional order review: Laboratory Results 02/03/19 02/03/19 02/03/19 17:27 17:27 17:27 PT with INR 12.70 INR 1.08 PTT (Actin FS) 39.1 H Sodium Potassium Chloride Carbon Dioxide Anion Gap BUN Creatinine Est GFR (CKD-EPI)AfAm Est GFR (CKD-EPI)NonAf Random Glucose Lactic Acid Calcium Phosphorus Magnesium Total Bilirubin AST ALT Alkaline Phosphatase Total Protein Albumin Lipase Urine Color Yellow Urine Appearance Clear Urine pH 5.5 Ur Specific [place] 1.019 Urine Protein Negative Urine Glucose (UA) Negative Urine Ketones 1+ H Urine Blood Negative Urine Nitrite Negative Urine Bilirubin Negative Urine Urobilinogen 0.2 Ur Leukocyte Esterase Trace Urine WBC (Auto) 1 Urine RBC (Auto) 1 Urine Casts (Auto) 9 U Epithel Cells (Auto) 4.1 Urine Bacteria (Auto) 34.0 Blood Type Cancelled Antibody Screen Cancelled 02/03/19 02/03/19 02/03/19 17:27 17:27 17:27 PT with INR INR PTT (Actin FS) Sodium 142 Potassium 3.6 Chloride 109 H Carbon Dioxide 28 Anion Gap 5 L BUN 10.0 Creatinine 0.7 Est GFR (CKD-EPI)AfAm 112.26 Est GFR (CKD-EPI)NonAf 96.86 Random Glucose 90 Lactic Acid 1.2 Calcium 8.9 Phosphorus 3.0 Magnesium 2.0 Total Bilirubin 0.6 AST 187 H ALT 171 H Alkaline Phosphatase 160 H Total Protein 6.8 Albumin 3.7 Lipase 74 Urine Color Urine Appearance Urine pH Ur Specific [place] Urine Protein Urine Glucose (UA) Urine Ketones Urine Blood Urine Nitrite Urine Bilirubin Urine Urobilinogen Ur Leukocyte Esterase Urine WBC (Auto) Urine RBC (Auto) Urine Casts (Auto) U Epithel Cells (Auto) Urine Bacteria (Auto) Blood Type Antibody Screen 02/03/19 17:27 RBC 3.64 MCV 93.8 MCHC 32.7 RDW 14.8 MPV 9.8 Neutrophils % 53.9 D Lymphocytes % 35.2 D Monocytes % 7.7 Eosinophils % 2.4 Basophils % 0.8 - Medications Given in the ED: ED Medications Discontinued Medications Generic Name Dose Route Start Last Admin Trade Name Dwain PRN Reason Stop Dose Admin Al Hydroxide/Mg Hydroxide 30 ml 02/03/19 16:54 02/03/19 18:13 Mylanta Suspension - PO 02/03/19 16:55 30 ml ONCE ONE Administration Sodium Chloride 1,000 mls @ 1,000 mls/hr 02/03/19 16:42 02/03/19 18:13 Normal Saline - IV 02/03/19 17:41 1,000 mls/hr ASDIR STA Administration Famotidine/Sodium Chloride 20 mg in 50 mls @ 100 mls/hr 02/03/19 16:54 18:14 Pepcid 20 Mg Premixed Ivpb - IVPB 02/03/19 17:23 100 mls/hr ONCE ONE Administration Morphine Sulfate 4 mg 02/03/19 16:42 02/03/19 18:12 Morphine Injection - IVPUSH 02/03/19 16:43 4 mg ONCE ONE Administration Ondansetron HCl 4 mg 02/03/19 16:44 02/03/19 18:13 Zofran Injection IVPUSH 02/03/19 16:45 4 mg ONCE ONE Administration Medical Decision Making - Medical Decision Making CT abdomen and pelvis shows prominent caliber of the gallbladder with no definite stones or cholecystitis. Prominent caliber of the CBD and pancreatic duct correlation with MRI and MRCP recommended. Patient was admitted to hospitalists. Dispo: Admit *DC/Admit/Observation/Transfer Diagnosis at time of Disposition: RUQ pain Nausea & vomiting Qualifiers: Vomiting type: unspecified Vomiting Intractability: intractable Qualified Code( s): R11.2 - Nausea with vomiting, unspecified - Referrals - Patient Instructions - Post Discharge Activity
[2019-02-03] MEDS ORDERED: METOCLOPRAMIDE HCL INJECTION 10 MG/2 ML VIAL ONE (20:43)
--- NOTE | 2019-02-04 02:21 | PN ---
Teaching Attending Note Name of Resident: Kody Peterson ATTENDING PHYSICIAN STATEMENT I saw and evaluated the patient. I reviewed the resident's note and discussed the case with the resident. I agree with the resident's findings and plan as documented. SUBJECTIVE: Patient was admitted to the hospital yesterday, but left to go and feed her cats and dogs. She is a 58 year old woman with PMH of Gallstones, HIV disease, Penicillin/Flagyl allergy and Morbid obesity s/p laparoscopic gastric sleeve last year (by Dr. Warren; has lost 140+ lbs) who presents to the for 3 days of sharp and intense RUQ abdominal pain which radiates to the back and shoulder. She states the pain becomes very bad after she eats food. She reports that she has vomited over 10 times in the past 3 days all of the vomitus was NBNB. She was seen recently in this hospital and told that she had cholelithiasis but not cholecystitis and it was determined not to take her gallbladder out at the time. The patient states that she now wants her gallbladder to be taken out because she cannot deal with the pain she is experiencing. Patient denies fevers , diarrhea, constipation, or chills. Has FH of DM and asthma. OBJECTIVE: Alert Vital Signs Period Temp Pulse Resp BP Sys/Dickson Pulse Ox Last 24 Hr 98 F-98.6 F 55-100 16-18 106-114/47-66 98-100 HEENT: No Jaundice, eye redness or discharge, PERRLA, EOMI. Normocephalic, atraumatic. External ears are normal and hearing is grossly intact. No nasal discharge. Neck: Supple, nontender. No palpable adenopathy or thyromegaly. No JVD Chest: Good effort. Clear to auscultation and percussion. Heart: Regular. No S3, rub or murmur Abdomen: Not distended, soft, RUQ tenderness and no HSM. No rebound or guarding. Normal bowel sounds. Ext: Peripheral pulses intact. No leg edema. Skin: Warm and dry. No petechiae, rash or ecchymosis. Neuro: Alert. Oriented x3. CN 2-12 grossly intact. Sensation grossly intact in all four extremities and DTR are symmetric. Psych: Appropriate mood and affect. Good insight. Home Medications Medication Instructions Recorded Calcium Carbonate [Calcium] 500 mg PO DAILY #30 tablet 09/28/17 Omeprazole 20 mg PO DAILY PRN #30 capsule. 11/23/17 MDD 1 Efavirenz/Emtricitab/Tenofovir 1 tab PO DAILY #30 tab 06/27/18 [Atripla Tablet -] Multivitamin [Multiple Vitamins] 1 each PO DAILY #30 tablet 10/13/18 Ascorbic Acid [Vitamin C -] 500 mg PO DAILY #30 tablet 12/13/18 Gabapentin [Neurontin] 600 mg PO TID #90 tablet 12/13/18 Vitamin B Complex 1 each PO DAILY #30 capsule 12/13/18 Cholecalciferol (Vitamin D3) 5,000 unit PO DAILY #30 tab.rapdis 01/15/19 [Vitamin D3] Lactose-Reduced Food [Ensure 1 can PO TID #90 liquid 01/19/19 Liquid] Acetaminophen 650 mg PO BID PRN 02/03/19 Diphenhydramine [Benadryl Capsule 50 mg PO HS 02/03/19 -] Oxycodone HCl/Acetaminophen 10 mg PO QID MDD 4 02/03/19 [Percocet 10-325 mg Tablet] Polyethylene Glycol 3350 [Miralax 17 gm PO HS 02/03/19 119 gm Btl -] Abnormal Lab Results 02/03/19 02/03/19 02/03/19 17:27 17:27 17:27 WBC 3.6 L PTT (Actin FS) 39.1 H Chloride 109 H Anion Gap 5 L AST 187 H ALT 171 H Alkaline Phosphatase 160 H Urine Ketones 02/03/19 17:27 WBC PTT (Actin FS) Chloride Anion Gap AST ALT Alkaline Phosphatase Urine Ketones 1+ H ASSESSMENT AND PLAN: 1. Abdominal pain syndrome - Both the MRCP and the preliminary report of CT abdomen/pelvis show "distended" gall bladder but no cholecystitis. Small stones are seen within the gall bladder. The CT abdomen/pelvis report makes no mention of any "gastric outlet obstruction" - will await the final report. Will consult GI and surgery and continue to trend LFTs. Will keep her NPO, use IV morphine for pain control and hydrate her gently. At this time, there is no indication for antibiotics. Continue comprehensive care of all her comorbid conditions including Atripla for HIV disease. 2. DVT prophylaxis - SCD 3. Advance directives - Full code
[2019-02-04] MEDS ORDERED: MORPHINE SULFATE 2 MG/ML VIAL IVPUSH PRN (02:25)
[2019-02-04] MEDS ORDERED: SODIUM CHLORIDE 1,000 ML IV SCH (02:30)
--- NOTE | 2019-02-04 03:44 | HP ---
CHIEF COMPLAINT: Abd pain PCP: Dr. Alisson Guaman HISTORY OF PRESENT ILLNESS: Pt returning after leaving AMA this morning. She was being conservatively managed for acute cholelithisiais. Symptoms of nausea, vomiting, and abdominal pain returned. Vomiting is non-bloody but bilious, less than 1 cup each episode. Pain is located in he RUQ, started 4 days ago, aching/sharp character, radiating to back and shoulder, better w hot shower/vomiting and was 10/10 but now pt reports mild discomfort after antiemetics and morphine. ER course was notable for: (1) MRCP 6 mm gall stone, no acute cholecystitis, no pancreatitis (2) CT ab/pelv: mild cbd dilation, no comment on gastric outlet obstruction (3) Morphine for pain Recent Travel: denies PAST MEDICAL HISTORY: HIV on HAART/undetectable, obesity s/p bariatric sleeve, lactose intolerance PAST SURGICAL HISTORY: (Jul 2017) Bariactric sleeve - Dr. Warren, ?spinal fusion and revisions in 2012, 2013, [address] 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 Lives alone. Grand daughter currently caring for 1 dog, 2 cats, 1 edwin, and fish Smoking:former Alcohol: Denies Drugs: Denies Family History: Mother: asthma; Father: DM Allergies cephalexin monohydrate [From Keflex] Allergy (Severe, Verified 02/03/19 15:57) Hives Penicillins Allergy (Severe, Verified 02/03/19 15:57) Hives lactose [Lactose] Allergy (Mild, Verified 02/03/19 15:57) diarrhea metronidazole [From Flagyl] Adverse Reaction (Intermediate, Verified 02/03/19 15 :57) Rash HOME MEDICATIONS: Home Medications Medication Instructions Recorded Calcium Carbonate [Calcium] 500 mg PO DAILY #30 tablet 09/28/17 Omeprazole 20 mg PO DAILY PRN #30 capsule. 11/23/17 MDD 1 Efavirenz/Emtricitab/Tenofovir 1 tab PO DAILY #30 tab 06/27/18 [Atripla Tablet -] Multivitamin [Multiple Vitamins] 1 each PO DAILY #30 tablet 10/13/18 Ascorbic Acid [Vitamin C -] 500 mg PO DAILY #30 tablet 12/13/18 Gabapentin [Neurontin] 600 mg PO TID #90 tablet 12/13/18 Vitamin B Complex 1 each PO DAILY #30 capsule 12/13/18 Cholecalciferol (Vitamin D3) 5,000 unit PO DAILY #30 tab.rapdis 01/15/19 [Vitamin D3] Lactose-Reduced Food [Ensure 1 can PO TID #90 liquid 01/19/19 Liquid] Acetaminophen 650 mg PO BID PRN 02/03/19 Diphenhydramine [Benadryl Capsule 50 mg PO HS 02/03/19 -] Oxycodone HCl/Acetaminophen 10 mg PO QID MDD 4 02/03/19 [Percocet 10-325 mg Tablet] Polyethylene Glycol 3350 [Miralax 17 gm PO HS 02/03/19 119 gm Btl -] REVIEW OF SYSTEMS CONSTITUTIONAL: Absent: fever, chills, diaphoresis, generalized weakness, malaise, loss of appetite, weight change HEENT: Absent: rhinorrhea, nasal congestion, throat pain, throat swelling, difficulty swallowing, mouth swelling, ear pain, eye pain, visual changes CARDIOVASCULAR: Absent: chest pain, syncope, palpitations, irregular heart rate, lightheadedness , peripheral edema RESPIRATORY: Absent: cough, shortness of breath, dyspnea with exertion, orthopnea, wheezing, stridor, hemoptysis GASTROINTESTINAL: Absent: abdominal pain, abdominal distension, nausea, vomiting, diarrhea, constipation, melena, hematochezia GENITOURINARY: Absent: dysuria, frequency, urgency, hesitancy, hematuria, flank pain, genital pain MUSCULOSKELETAL: Absent: myalgia, arthralgia, joint swelling, back pain, neck pain SKIN: Absent: rash, itching, pallor HEMATOLOGIC/IMMUNOLOGIC: Absent: easy bleeding, easy bruising, lymphadenopathy, frequent infections ENDOCRINE: Absent: unexplained weight gain, unexplained weight loss, heat intolerance, cold intolerance NEUROLOGIC: Absent: headache, focal weakness or paresthesias, dizziness, unsteady gait, seizure, mental status changes, bladder or bowel incontinence PSYCHIATRIC: Absent: anxiety, depression, suicidal or homicidal ideation, hallucinations. PHYSICAL EXAMINATION Vital Signs - 24 hr 02/03/19 02/03/19 02/04/19 15:54 20:23 01:17 Temperature 98 F 98.6 F Pulse Rate 61 Pulse Rate [ 100 H 55 L Right Radial] Respiratory 18 16 16 Rate Blood Pressure 114/59 L Blood Pressure 111/66 106/47 L [Right Arm] O2 Sat by Pulse 99 100 98 Oximetry (%) GENERAL: AOx3, in no acute distress. HEAD: NCAT EYES: JOHN, EOMI, conjunctiva clear. EARS, NOSE, THROAT: Ears normal, nares patent, oropharynx clear without exudates. Moist mucous membranes. NECK: Normal range of motion, supple without lymphadenopathy, JVD, or masses. LUNGS: CTAB . No wheezes, and no crackles. No accessory muscle use. HEART: RRR s1 s2 ABDOMEN: RUQ TENDER TO PALPATION. DAVIES SIGN POSITIVE. Soft, BS present in all 4 quadrants, non-distended, no JVD, MUSCULOSKELETAL: No bony deformities or tenderness. No CVA tenderness. UPPER EXTREMITIES: 2+ pulses, warm, well-perfused. No cyanosis. No clubbing. No peripheral edema. LOWER EXTREMITIES: 2+ pulses, warm, well-perfused. No calf tenderness. No peripheral edema. NEUROLOGICAL: Cranial nerves II-XII intact. Normal speech. Gait not appreciated. PSYCHIATRIC: Cooperative. Good eye contact. Appropriate mood and affect. SKIN: Warm, dry, normal turgor, no rashes or lesions noted, normal capillary refill. Laboratory Results - last 24 hr 02/03/19 02/03/19 02/03/19 17:27 17:27 17:27 WBC 3.6 L RBC 3.64 Hgb 11.2 Hct 34.2 D MCV 93.8 MCH 30.6 MCHC 32.7 RDW 14.8 Plt Count 215 D MPV 9.8 Absolute Neuts (auto) 1.9 Neutrophils % 53.9 D Lymphocytes % 35.2 D Monocytes % 7.7 Eosinophils % 2.4 Basophils % 0.8 Nucleated RBC % 0 PT with INR INR PTT (Actin FS) Sodium 142 Potassium 3.6 Chloride 109 H Carbon Dioxide 28 Anion Gap 5 L BUN 10.0 Creatinine 0.7 Est GFR (CKD-EPI)AfAm 112.26 Est GFR (CKD-EPI)NonAf 96.86 Random Glucose 90 Lactic Acid 1.2 Calcium 8.9 Phosphorus Magnesium Total Bilirubin 0.6 AST 187 H ALT 171 H Alkaline Phosphatase 160 H Total Protein 6.8 Albumin 3.7 Lipase Urine Color Urine Appearance Urine pH Ur Specific [place] Urine Protein Urine Glucose (UA) Urine Ketones Urine Blood Urine Nitrite Urine Bilirubin Urine Urobilinogen Ur Leukocyte Esterase Urine WBC (Auto) Urine RBC (Auto) Urine Casts (Auto) U Epithel Cells (Auto) Urine Bacteria (Auto) Blood Type Antibody Screen 02/03/19 02/03/19 02/03/19 17:27 17:27 17:27 WBC RBC Hgb Hct MCV MCH MCHC RDW Plt Count MPV Absolute Neuts (auto) Neutrophils % Lymphocytes % Monocytes % Eosinophils % Basophils % Nucleated RBC % PT with INR 12.70 INR 1.08 PTT (Actin FS) 39.1 H Sodium Potassium Chloride Carbon Dioxide Anion Gap BUN Creatinine Est GFR (CKD-EPI)AfAm Est GFR (CKD-EPI)NonAf Random Glucose Lactic Acid Calcium Phosphorus 3.0 Magnesium 2.0 Total Bilirubin AST ALT Alkaline Phosphatase Total Protein Albumin Lipase 74 Urine Color Urine Appearance Urine pH Ur Specific [place] Urine Protein Urine Glucose (UA) Urine Ketones Urine Blood Urine Nitrite Urine Bilirubin Urine Urobilinogen Ur Leukocyte Esterase Urine WBC (Auto) Urine RBC (Auto) Urine Casts (Auto) U Epithel Cells (Auto) Urine Bacteria (Auto) Blood Type Cancelled Antibody Screen Cancelled 02/03/19 17:27 WBC RBC Hgb Hct MCV MCH MCHC RDW Plt Count MPV Absolute Neuts (auto) Neutrophils % Lymphocytes % Monocytes % Eosinophils % Basophils % Nucleated RBC % PT with INR INR PTT (Actin FS) Sodium Potassium Chloride Carbon Dioxide Anion Gap BUN Creatinine Est GFR (CKD-EPI)AfAm Est GFR (CKD-EPI)NonAf Random Glucose Lactic Acid Calcium Phosphorus Magnesium Total Bilirubin AST ALT Alkaline Phosphatase Total Protein Albumin Lipase Urine Color Yellow Urine Appearance Clear Urine pH 5.5 Ur Specific [place] 1.019 Urine Protein Negative Urine Glucose (UA) Negative Urine Ketones 1+ H Urine Blood Negative Urine Nitrite Negative Urine Bilirubin Negative Urine Urobilinogen 0.2 Ur Leukocyte Esterase Trace Urine WBC (Auto) 1 Urine RBC (Auto) 1 Urine Casts (Auto) 9 U Epithel Cells (Auto) 4.1 Urine Bacteria (Auto) 34.0 Blood Type Antibody Screen ASSESSMENT/PLAN: 58 y/o F w PMH HIV on HAART/undetectable, obesity s/p bariatric sleeve, lactose intolerance whom presented to the ED w worsening symptoms of abdominal pain s/p leaving AMA for admission of cholithiasis. # Acute cholilithais - Morphine to manage pain - Gentle IV hydration s/p xs vomiting - Observe off abx - Consult surgery (Dr. Persaud/Dr. Pike) # Transaminitis - AST/ALT 187/171 - Likely 2/2 cholilithiasis # HIV - Cont. Atripla (efavirenz, emtricitab, tenofovir) # F/E/N - NS - Monitor electrolytes - NL diet # Dispostion - Full code Kit Moraes MD Visit type - Emergency Visit Emergency Visit: Yes ED Registration Date: 02/04/19 Care time: The patient presented to the Emergency Department on the above date and was hospitalized for further evaluation of their emergent condition. - New Patient This patient is new to me today: Yes Date on this admission: 02/04/19 - Critical Care Critical Care patient: No ATTENDING PHYSICIAN STATEMENT I saw and evaluated the patient. I reviewed the resident's note and discussed the case with the resident. I agree with the resident's findings and plan as documented. SUBJECTIVE: OBJECTIVE: ASSESSMENT AND PLAN:
[2019-02-04 04:09] VITALS: BMI 25.9
[2019-02-04 07:23] LABS: HEMATOCRIT 29.3 % (32.4-45.2); HEMOGLOBIN 9.7 GM/dL (10.7-15.3); MCH 30.9 pg (25.7-33.7); MCHC 33.2 g/dl (32.0-36.0); MEAN PLT VOLUME 9.2 fl (7.5-11.1); PLATELET COUNT 179 K/MM3 (134-434); RBC 3.14 M/mm3 (3.60-5.2); RDW 14.8 % (11.6-15.6); WHITE BLOOD COUNT 2.9 K/mm3 (4.0-10.0)
[2019-02-04 08:02] LABS: BILIRUBIN,TOTAL 0.3 mg/dL (0.2-1); BLOOD UREA NITROGEN 7.8 mg/dL (7-18); CALCIUM 8.5 mg/dL (8.5-10.1); CREATININE 0.6 mg/dL (0.55-1.3); MAGNESIUM 2.1 mg/dL (1.8-2.4); PHOSPHOROUS 3.2 mg/dL (2.5-4.9); POTASSIUM 3.9 mmol/L (3.5-5.1); TOT PROT 5.4 g/dl (6.4-8.2)
[2019-02-04] MEDS ORDERED: ACETAMINOPHEN 1000 MG/100 ML VIAL (NON FORMULARY) IVPB PRN (09:08)
--- NOTE | 2019-02-04 09:16 | CON.GI ---
Consult Consult Specialty:: GI Referred by:: Hospitalist service Reason for Consultation:: Abd pain, abnl liver chemistries, small gallstones - History of Present Illness Chief Complaint: Abdominal pain, recurrent History of Present Illness: 58 y.o. F with hx of obesity, HIV, well known to me with recurrent vomiting episodes after a gastric sleeve procedure. Her gastric sleeve initially appeared tight and was dilated at EGD. Since the last dilation she has had two episodes of epigastric pain with a transient rise in liver chemistries. Small gallstones have been noted. Other workup has included a negative HIDA scan and a normal gastric emptying study. - History Source History Provided By: Patient, Medical Record Limitations to Obtaining History: No Limitations - Past Medical History Gastrointestinal: Yes: Other (morbid obesity (lost 140+ lbs after gastric sleeve 07/24); tight gastric sleeve - has had dilations x2) Hepatobiliary: Yes: Cholelithiasis ...LMP: 09/05/15 Infectious Disease: Yes: HIV (undetectable viral load per pt, stable 16 yrs) Psych: Yes: Anxiety (gets anxiety attacks) Musculoskeletal: Yes: Chronic low back pain - Past Surgical History Past Surgical History: Yes: Bariatric Surgery (laparoscopic gastric sleeve 07/24 ([facility])), Laminectomy (multiple spinal surgery lumbar; also had spinal stimulator , then removal), Upper Endoscopy (with dilation of gastric sleeve x2, last ) - Alcohol/Substance Use Hx Alcohol Use: No History of Substance Use: reports: None (no illicits), Prescription (uses Percocet 10/325, four daily for back pain) - Smoking History Smoking history: Never smoked Have you smoked in the past 12 months: No Aproximately how many cigarettes per day: 1 If you are a former smoker, when did you quit?: 6YRS - Social History ADL: Independent History of Recent Travel: No Home Medications - Allergies Allergies/Adverse Reactions: Allergies Allergy/AdvReac Type Severity Reaction Status Date / Time cephalexin monohydrate Allergy Severe Hives Verified 02/03/19 15:57 [From Keflex] Penicillins Allergy Severe Hives Verified 02/03/19 15:57 lactose [Lactose] Allergy Mild diarrhea Verified 02/03/19 15:57 metronidazole [From Flagyl] AdvReac Intermediate Rash Verified 02/03/19 15:57 - Home Medications Home Medications: Ambulatory Orders Calcium Carbonate [Calcium] 500 mg PO DAILY #30 tablet 09/28/17 Omeprazole 20 mg PO DAILY PRN #30 capsule. MDD 1 11/23/17 Efavirenz/Emtricitab/Tenofovir [Atripla Tablet -] 1 tab PO DAILY #30 tab Multivitamin [Multiple Vitamins] 1 each PO DAILY #30 tablet 10/13/18 Ascorbic Acid [Vitamin C -] 500 mg PO DAILY #30 tablet 12/13/18 Gabapentin [Neurontin] 600 mg PO TID #90 tablet 12/13/18 Vitamin B Complex 1 each PO DAILY #30 capsule 12/13/18 Cholecalciferol (Vitamin D3) [Vitamin D3] 5,000 unit PO DAILY #30 tab.rapdis 05/24 Lactose-Reduced Food [Ensure Liquid] 1 can PO TID #90 liquid 01/19/19 Acetaminophen 650 mg PO BID PRN 02/03/19 Diphenhydramine [Benadryl Capsule -] 50 mg PO HS 02/03/19 Oxycodone HCl/Acetaminophen [Percocet 10-325 mg Tablet] 10 mg PO QID MDD 4 02/03 Polyethylene Glycol 3350 [Miralax 119 gm Btl -] 17 gm PO HS 02/03/19 Family Disease History - Family Disease History Family Disease History: Diabetes: Father (a&w), Sister (2 both a&w), Other: Grandparent (unk), Father, Mother (dec'd age 41 yrs aids), Brother (none), Sister, Son (1 a&w), Daughter (2 a&w) Physical Exam-GI Vital Signs: Vital Signs Temperature 98 F 02/04/19 05:50 Pulse Rate 62 02/04/19 05:50 Respiratory Rate 16 02/04/19 05:50 Blood Pressure 104/61 02/04/19 05:50 O2 Sat by Pulse Oximetry (%) 98 02/04/19 01:17 Constitutional: Yes: Well Nourished Eyes: Yes: WNL HENT: Yes: WNL Cardiovascular: Yes: WNL Respiratory: Yes: WNL ...Rectal Exam: Yes: Deferred Labs: CBC, BMP 02/04/19 07:10 02/04/19 07:10 INR, PTT INR 1.08 (0.83-1.09) 02/03/19 17:27 Hepatic Panel Total Bilirubin 0.3 mg/dL (0.2-1) 02/04/19 07:10 AST 84 U/L (15-37) H 02/04/19 07:10 ALT 119 U/L (13-61) H 02/04/19 07:10 Alkaline Phosphatase 129 U/L (45-117) H 02/04/19 07:10 Albumin 3.0 g/dl (3.4-5.0) L 02/04/19 07:10 Imaging - Results Cat Scan: Image Reviewed Ultrasound: Image Reviewed Problem List - Problems (1) Calculus of gallbladder w/o mention of cholecystitis or obstruction Code(s): K80.20 - CALCULUS OF GALLBLADDER W/O CHOLECYSTITIS W/O OBSTRUCTION Qualifiers: Cholecystitis presence: without cholecystitis Biliary obstruction: without biliary obstruction Qualified Code(s): K80.20 - Calculus of gallbladder without cholecystitis without obstruction (2) Common bile duct dilation Code(s): K83.8 - OTHER SPECIFIED DISEASES OF BILIARY TRACT (3) Abdominal pain Code(s): R10.9 - UNSPECIFIED ABDOMINAL PAIN Qualifiers: Abdominal location: right upper quadrant Qualified Code(s): R10.11 - Right upper quadrant pain Assessment/Plan I have reviewed her last CT scan and sonogram (not officially read yet). To my eye it looks like the gallbladder is distended and the common bile duct is slightly dilated. The pancreatic duct also appears minimally dilated. Together with the character of her pain and the intermittent rise in liver chemistries, these images suggest sphincter of Oddi dysfunction (spasm). This is a condition that is made WORSE with narcotics, particularly morphine. I have taken the liberty of discontinuing her morphine and placing her on IV acetaminophen for now. Will observe her for changes in liver chemistries and pain character.
--- NOTE | 2019-02-04 09:38 | EKG ---
Test Reason : Blood Pressure : / mmHG Vent. Rate : 051 BPM Atrial Rate : 051 BPM P-R Int : 140 ms QRS Dur : 086 ms QT Int : 438 ms P-R-T Axes : 032 067 047 degrees QTc Int : 403 ms SINUS BRADYCARDIA WITH SINUS ARRHYTHMIA OTHERWISE NORMAL ECG WHEN COMPARED WITH ECG OF 02-FEB-2019 23:22, NO SIGNIFICANT CHANGE WAS FOUND Confirmed by NANCY LEES MD ([id number]) on 02/04/2019 9:38:06 AM Referred By: Confirmed By:NANCY LEES MD
[2019-02-04] MEDS: HEPARIN NA (PORCINE) 5,000 UNITS/ML 1ML VIAL SQ SCH ×2 (10:51→18:55)
--- NOTE | 2019-02-04 10:58 | PN ---
Physical Exam: SUBJECTIVE: Patient seen and examined at bedside- patient states that she is still having a lot of pain and is still very nauseous however she is hungry and wants to eat she is also very anxious; she denies any CP/SOB OBJECTIVE: Vital Signs Period Temp Pulse Resp BP Sys/Dickson Pulse Ox Last 24 Hr 98 F-98.6 F 52-100 16-18 100-114/47-66 98-100 GENERAL: The patient is awake, alert, and fully oriented, in slight acute distress. EYES: PEERLA; EOMI; no scleral icterus NECK: no JVD; no lymphadenopathy LUNGS: CTA B/L; no rales, rhonchi or wheezing HEART: Regular rate and rhythm, S1, S2 without murmur, rub or gallop. ABDOMEN: Soft, RUQ tenderness upon palpation; + murphys sign +BS in all 4 quadrants EXTREMITIES: 2+ pulses, warm, well-perfused, no edema. PSYCH: Normal mood, normal affect. SKIN: Warm, dry, normal turgor, no rashes or lesions noted Laboratory Results - last 24 hr 02/03/19 02/03/19 02/03/19 17:27 17:27 17:27 WBC 3.6 L RBC 3.64 Hgb 11.2 Hct 34.2 D MCV 93.8 MCH 30.6 MCHC 32.7 RDW 14.8 Plt Count 215 D MPV 9.8 Absolute Neuts (auto) 1.9 Neutrophils % 53.9 D Lymphocytes % 35.2 D Monocytes % 7.7 Eosinophils % 2.4 Basophils % 0.8 Nucleated RBC % 0 PT with INR INR PTT (Actin FS) Sodium 142 Potassium 3.6 Chloride 109 H Carbon Dioxide 28 Anion Gap 5 L BUN 10.0 Creatinine 0.7 Est GFR (CKD-EPI)AfAm 112.26 Est GFR (CKD-EPI)NonAf 96.86 Random Glucose 90 Lactic Acid 1.2 Calcium 8.9 Phosphorus Magnesium Total Bilirubin 0.6 AST 187 H ALT 171 H Alkaline Phosphatase 160 H Total Protein 6.8 Albumin 3.7 Lipase Urine Color Urine Appearance Urine pH Ur Specific [place] Urine Protein Urine Glucose (UA) Urine Ketones Urine Blood Urine Nitrite Urine Bilirubin Urine Urobilinogen Ur Leukocyte Esterase Urine WBC (Auto) Urine RBC (Auto) Urine Casts (Auto) U Epithel Cells (Auto) Urine Bacteria (Auto) Blood Type Antibody Screen 02/03/19 02/03/19 02/03/19 17:27 17:27 17:27 WBC RBC Hgb Hct MCV MCH MCHC RDW Plt Count MPV Absolute Neuts (auto) Neutrophils % Lymphocytes % Monocytes % Eosinophils % Basophils % Nucleated RBC % PT with INR 12.70 INR 1.08 PTT (Actin FS) 39.1 H Sodium Potassium Chloride Carbon Dioxide Anion Gap BUN Creatinine Est GFR (CKD-EPI)AfAm Est GFR (CKD-EPI)NonAf Random Glucose Lactic Acid Calcium Phosphorus 3.0 Magnesium 2.0 Total Bilirubin AST ALT Alkaline Phosphatase Total Protein Albumin Lipase 74 Urine Color Urine Appearance Urine pH Ur Specific [place] Urine Protein Urine Glucose (UA) Urine Ketones Urine Blood Urine Nitrite Urine Bilirubin Urine Urobilinogen Ur Leukocyte Esterase Urine WBC (Auto) Urine RBC (Auto) Urine Casts (Auto) U Epithel Cells (Auto) Urine Bacteria (Auto) Blood Type Cancelled Antibody Screen Cancelled 02/03/19 02/04/19 02/04/19 17:27 07:10 07:10 WBC 2.9 L RBC 3.14 L Hgb 9.7 L Hct 29.3 L MCV 93.0 MCH 30.9 MCHC 33.2 RDW 14.8 Plt Count 179 MPV 9.2 Absolute Neuts (auto) Neutrophils % Lymphocytes % Monocytes % Eosinophils % Basophils % Nucleated RBC % PT with INR INR PTT (Actin FS) Sodium 142 Potassium 3.9 Chloride 109 H Carbon Dioxide 31 Anion Gap 3 L BUN 7.8 Creatinine 0.6 Est GFR (CKD-EPI)AfAm 118.09 Est GFR (CKD-EPI)NonAf 101.89 Random Glucose 80 Lactic Acid Calcium 8.5 Phosphorus 3.2 Magnesium 2.1 Total Bilirubin 0.3 AST 84 H ALT 119 H Alkaline Phosphatase 129 H Total Protein 5.4 L Albumin 3.0 L Lipase Urine Color Yellow Urine Appearance Clear Urine pH 5.5 Ur Specific [place] 1.019 Urine Protein Negative Urine Glucose (UA) Negative Urine Ketones 1+ H Urine Blood Negative Urine Nitrite Negative Urine Bilirubin Negative Urine Urobilinogen 0.2 Ur Leukocyte Esterase Trace Urine WBC (Auto) 1 Urine RBC (Auto) 1 Urine Casts (Auto) 9 U Epithel Cells (Auto) 4.1 Urine Bacteria (Auto) 34.0 Blood Type Antibody Screen Active Medications Generic Name Dose Route Start Last Admin Trade Name Freq PRN Reason Stop Dose Admin Acetaminophen 1,000 mg 02/04/19 09:08 Ofirmev Injection - IVPB Q6H PRN PAIN Heparin Sodium (Porcine) 5,000 unit 02/04/19 10:00 02/04/19 10:51 Heparin - SQ 5,000 unit Q8H-IV VAINASH Administration Sodium Chloride 1,000 mls @ 150 mls/hr 02/04/19 11:00 Normal Saline - IV 02/05/19 17:39 ASDIR AVINASH ASSESSMENT/PLAN: Ms. Bolden is a 58 year old woman with a past medical history of gallstones, HIV ( on atripla,) and morbid obesity (s/p lap gastric sleeve last year by Dr. Warren; who presented to the ED with 3 days of RUQ associated with n/v and decreased appetite # possible acute cholecystitis U/S showed cholethiasis w/ moderate GB distention and boderline GB wall thickening and CBD dilation -Patient to go for HIDA scan this AM to further evaluate -possible choleystitis v. sphincter of oddi dysfunction -GI on board -surgery consulted -clears -IV tylenol for pain; NO NARCOTICS as this may worsen -trend LFTS -NS @150mls #HIV -c/w atriptla F/E/N NS @150mls monitor electrolytes clears dvt ppx: heparin Problem List - Problems (1) Cholelithiasis Code(s): K80.20 - CALCULUS OF GALLBLADDER W/O CHOLECYSTITIS W/O OBSTRUCTION Qualifiers: Cholelithiasis location: gallbladder Cholecystitis presence: without cholecystitis Biliary obstruction: without biliary obstruction Qualified Code(s): K80.20 - Calculus of gallbladder without cholecystitis without obstruction (2) RUQ pain Code(s): R10.11 - RIGHT UPPER QUADRANT PAIN (3) Nausea & vomiting Code(s): R11.2 - NAUSEA WITH VOMITING, UNSPECIFIED Qualifiers: Vomiting type: unspecified Vomiting Intractability: non-intractable Qualified Code(s): R11.2 - Nausea with vomiting, unspecified (4) Common bile duct dilation Code(s): K83.8 - OTHER SPECIFIED DISEASES OF BILIARY TRACT Visit type - Emergency Visit Emergency Visit: Yes ED Registration Date: 02/04/19 Care time: The patient presented to the Emergency Department on the above date and was hospitalized for further evaluation of their emergent condition. - New Patient This patient is new to me today: Yes Date on this admission: 02/04/19 - Critical Care Critical Care patient: No ATTENDING PHYSICIAN STATEMENT I saw and evaluated the patient. I reviewed the resident's note and discussed the case with the resident. I agree with the resident's findings and plan as documented. SUBJECTIVE: OBJECTIVE: ASSESSMENT AND PLAN:
[2019-02-04] MEDS: SODIUM CHLORIDE 1,000 ML IV SCH (11:49)
--- NOTE | 2019-02-04 17:00 | PN ---
Teaching Attending Note Name of Resident: Anila Hernandez ATTENDING PHYSICIAN STATEMENT I saw and evaluated the patient. I reviewed the resident's note and discussed the case with the resident. I agree with the resident's findings and plan as documented. SUBJECTIVE: Patient is comfortable with no acute distress, c/o having RUQ pain, anuradha fever or chill, no shortness of breath. OBJECTIVE: Vital Signs Temperature 98.9 F 02/04/19 16:43 Pulse Rate 61 02/04/19 16:43 Respiratory Rate 20 02/04/19 16:43 Blood Pressure 102/47 L 02/04/19 16:43 O2 Sat by Pulse Oximetry (%) 99 02/04/19 09:00 GENERAL: The patient is awake, alert, and fully oriented, in no acute distress. HEAD: Normal with no signs of trauma. EYES: PERRL, extraocular movements intact, sclera anicteric, conjunctiva clear. ENT: Ears normal, oropharynx clear without exudates, moist mucous membranes. NECK: Trachea midline, full range of motion, supple. LUNGS: Breath sounds equal, clear to auscultation bilaterally, no wheezes, no crackles, no accessory muscle use. HEART: Regular rate and rhythm, S1, S2 without murmur, rub or gallop. ABDOMEN: RUQ tenderness, + nunes's sign , ND, normoactive bowel sounds, no guarding, no rebound, no hepatosplenomegaly, no masses. EXTREMITIES: 2+ pulses, warm, well-perfused, no edema. NEUROLOGICAL: Cranial nerves II through XII grossly intact. Normal speech, gait not observed. PSYCH: Normal mood, normal affect. SKIN: Warm, dry, normal turgor, no rashes or lesion CBCD WBC 2.9 K/mm3 (4.0-10.0) L 02/04/19 07:10 RBC 3.14 M/mm3 (3.60-5.2) L 02/04/19 07:10 Hgb 9.7 GM/dL (10.7-15.3) L 02/04/19 07:10 Hct 29.3 % (32.4-45.2) L 02/04/19 07:10 MCV 93.0 fl (80-96) 02/04/19 07:10 MCHC 33.2 g/dl (32.0-36.0) 02/04/19 07:10 RDW 14.8 % (11.6-15.6) 02/04/19 07:10 Plt Count 179 K/MM3 (134-434) 02/04/19 07:10 MPV 9.2 fl (7.5-11.1) 02/04/19 07:10 CMP Sodium 142 mmol/L (136-145) 02/04/19 07:10 Potassium 3.9 mmol/L (3.5-5.1) 02/04/19 07:10 Chloride 109 mmol/L (98-107) H 02/04/19 07:10 Carbon Dioxide 31 mmol/L (21-32) 02/04/19 07:10 Anion Gap 3 MMOL/L (8-16) L 02/04/19 07:10 BUN 7.8 mg/dL (7-18) 02/04/19 07:10 Creatinine 0.6 mg/dL (0.55-1.3) 02/04/19 07:10 Random Glucose 80 mg/dL (74-106) 02/04/19 07:10 Calcium 8.5 mg/dL (8.5-10.1) 02/04/19 07:10 Total Bilirubin 0.3 mg/dL (0.2-1) 02/04/19 07:10 AST 84 U/L (15-37) H 02/04/19 07:10 ALT 119 U/L (13-61) H 02/04/19 07:10 Alkaline Phosphatase 129 U/L (45-117) H 02/04/19 07:10 Total Protein 5.4 g/dl (6.4-8.2) L 02/04/19 07:10 Albumin 3.0 g/dl (3.4-5.0) L 02/04/19 07:10 Current Medications Generic Name Dose Route Start Last Admin Trade Name Freq PRN Reason Stop Dose Admin Acetaminophen 1,000 mg 02/04/19 09:08 02/04/19 16:26 Ofirmev Injection - IVPB 1,000 mg Q6H PRN Administration PAIN Heparin Sodium (Porcine) 5,000 unit 02/04/19 10:00 02/04/19 10:51 Heparin - SQ 5,000 unit Q8H-IV AVINASH Administration Sodium Chloride 1,000 mls @ 150 mls/hr 02/04/19 11:00 02/04/19 11:49 Normal Saline - IV 02/05/19 17:39 150 mls/hr ASDIR AVINASH Administration Home Medications Medication Instructions Recorded Calcium Carbonate [Calcium] 500 mg PO DAILY #30 tablet 09/28/17 Omeprazole 20 mg PO DAILY PRN #30 capsule. 11/23/17 MDD 1 Efavirenz/Emtricitab/Tenofovir 1 tab PO DAILY #30 tab 06/27/18 [Atripla Tablet -] Multivitamin [Multiple Vitamins] 1 each PO DAILY #30 tablet 10/13/18 Ascorbic Acid [Vitamin C -] 500 mg PO DAILY #30 tablet 12/13/18 Gabapentin [Neurontin] 600 mg PO TID #90 tablet 12/13/18 Vitamin B Complex 1 each PO DAILY #30 capsule 12/13/18 Cholecalciferol (Vitamin D3) 5,000 unit PO DAILY #30 tab.rapdis 01/15/19 [Vitamin D3] Lactose-Reduced Food [Ensure 1 can PO TID #90 liquid 01/19/19 Liquid] Acetaminophen 650 mg PO BID PRN 02/03/19 Diphenhydramine [Benadryl Capsule 50 mg PO HS 02/03/19 -] Oxycodone HCl/Acetaminophen 10 mg PO QID MDD 4 02/03/19 [Percocet 10-325 mg Tablet] Polyethylene Glycol 3350 [Miralax 17 gm PO HS 02/03/19 119 gm Btl -] CT of abdomen and pelvis: Moderate gallbladder distention suspesious of gallbladder dysmotility ASSESSMENT AND PLAN: Ms. Bolden is a 58 year old woman with a past medical history of gallstones, HIV ( on atripla,) and morbid obesity (s/p lap gastric sleeve last year by Dr. Warren; who presented to the ED with 3 days of RUQ associated with n/v and decreased appetite # Moderate gallblaader distention with gallbladder motility can't r/o acute cholecystitis , will need HIDA scan with EJF sphincter of oddi dysfunction, stay away from narcotics . No tylenol since LFTs are elevated as well, will give IV motrin trend LFTS, NS @150mls #HIV continue home meds atriptla DVT Px: heparin
[2019-02-04] MEDS ORDERED: IBUPROFEN 800 MG/8 ML IJ IVPB PRN (17:22)
--- NOTE | 2019-02-04 17:56 | CONSULT ---
Consult Consult Specialty:: General Surgery Referred by:: Perfecto Rayo Reason for Consultation:: possible cholecystitis - History of Present Illness Chief Complaint: RUQ pain, epigastric pain, N/V History of Present Illness: 58yo F with HIV, morbid obesity s/p lap gastric sleeve last year (Dr. Warren), who has had chronic N/V since then with more recent RUQ/epigastric pain radiating around to right back. She follows with Dr. Pike of GI also, and has had dilations of her gastric sleeve, with the last scope 01/11/19 showing no evidence of stricture or narrowing. I saw her just over 2 months ago for similar complaints, and she is known to have some gallstones; at that time, she was diagnosed with biliary colic but not cholecystitis. LFTs except bili were also briefly elevated at that time. This episode began on night, when she had some FRIED salmon (usually eats steamed), and almost immediately began having pain and then vomiting. Tuesday, the pain was so severe that she came to ER and was admitted with a bump in her LFTs (except bili) and wbc 5.8 (usually < 4). US showed some gallstones, mild wall thickening, prominent cbd; MRCP was done late that night showing no ductal stones and no overt cholecystitis. She left AMA yesterday morning to deal with her pets at home, but returned to the ER when the pain returned. She did not eat or drink anything while out of the hospital. She had repeat US, and then CT, all similar to the other studies, with no bowel or gastric obstruction. LFTs are coming down and wbc is low but normal for her baseline. Surgery was asked to assess. She is seen and examined in bed. She reports having had a couple bites of a bagel and cream cheese earlier from her daughter, which she promptly vomited back up. The pain is better but still present. She reports several normal BMs but no diarrhea before coming to the hospital. She has been seen by GI/Dr. Pike as well. - History Source History Provided By: Patient Limitations to Obtaining History: No Limitations - Past Medical History Gastrointestinal: Yes: Other (morbid obesity (lost 140+ lbs after gastric sleeve 07/24); tight gastric sleeve, dilated - open as of 01/11/19 endoscopy) Hepatobiliary: Yes: Cholelithiasis Reproductive: Yes: Ectopic , Postmenopausal ...LMP: 09/05/15 Infectious Disease: Yes: HIV (undetectable viral load per pt, stable 16 yrs) Psych: Yes: Anxiety (gets anxiety attacks) Musculoskeletal: Yes: Chronic low back pain - Past Surgical History Past Surgical History: Yes: Bariatric Surgery (laparoscopic gastric sleeve 07/24 ([facility])), Laminectomy (multiple spinal surgery lumbar; also had spinal stimulator , then removal), Upper Endoscopy (with dilation of gastric sleeve x2 (last ), last scope 01/11/19 with no narrowing) Additional Surgical History: salpingectomy for ectopic (not sure which side) - Alcohol/Substance Use Hx Alcohol Use: No History of Substance Use: reports: None (no illicits), Prescription (uses Percocet 10/325, four daily for back pain) - Smoking History Smoking history: Former smoker Have you smoked in the past 12 months: No If you are a former smoker, when did you quit?: 6YRS - Social History Usual Living Arrangement: Alone ADL: Independent History of Recent Travel: No Home Medications - Allergies Allergies/Adverse Reactions: Allergies Allergy/AdvReac Type Severity Reaction Status Date / Time cephalexin monohydrate Allergy Severe Hives Verified 02/03/19 15:57 [From Keflex] Penicillins Allergy Severe Hives Verified 02/03/19 15:57 lactose [Lactose] Allergy Mild diarrhea Verified 02/03/19 15:57 metronidazole [From Flagyl] AdvReac Intermediate Rash Verified 02/03/19 15:57 - Home Medications Home Medications: Ambulatory Orders Calcium Carbonate [Calcium] 500 mg PO DAILY #30 tablet 09/28/17 Omeprazole 20 mg PO DAILY PRN #[address] MATOS 1 11/23/17 Efavirenz/Emtricitab/Tenofovir [Atripla Tablet -] 1 tab PO DAILY #30 tab Multivitamin [Multiple Vitamins] 1 each PO DAILY #30 tablet 10/13/18 Ascorbic Acid [Vitamin C -] 500 mg PO DAILY #30 tablet 12/13/18 Gabapentin [Neurontin] 600 mg PO TID #90 tablet 12/13/18 Vitamin B Complex 1 each PO DAILY #30 capsule 12/13/18 Cholecalciferol (Vitamin D3) [Vitamin D3] 5,000 unit PO DAILY #30 tab.rapdis 05/24 Lactose-Reduced Food [Ensure Liquid] 1 can PO TID #90 liquid 01/19/19 Acetaminophen 650 mg PO BID PRN 02/03/19 Diphenhydramine [Benadryl Capsule -] 50 mg PO HS 02/03/19 Oxycodone HCl/Acetaminophen [Percocet 10-325 mg Tablet] 10 mg PO QID MDD 4 02/03 Polyethylene Glycol 3350 [Miralax 119 gm Btl -] 17 gm PO HS 02/03/19 Family Disease History - Family Disease History Family Disease History: Diabetes: Father (a&w), Sister (2 both a&w), Other: Grandparent (unk), Father, Mother (dec'd age 41 yrs aids), Brother (none), Sister, Son (1 a&w), Daughter (2 a&w) Review of Systems - Review of Systems Constitutional: reports: Other ("hot flashes"). denies: Chills, Fever Eyes: reports: Blurred Vision. denies: Double Vision HENT: denies: Nasal Congestion, Throat Pain Neck: denies: Swollen Glands, Tenderness Cardiovascular: reports: Chest Pain (yesterday). denies: Palpitations Respiratory: denies: Cough, SOB Gastrointestinal: reports: Abdominal Pain (with hpi), Nausea, Vomiting. denies : Constipation, Diarrhea Genitourinary: denies: Burning, Dysuria Musculoskeletal: reports: Back Pain. denies: Joint Pain Integumentary: denies: Change in Color, Rash Neurological: reports: Headache. denies: Dizziness Psychiatric: reports: Anxiety. denies: Depression Physical Exam Vital Signs: Vital Signs Temperature 98.9 F 02/04/19 16:43 Pulse Rate 61 02/04/19 16:43 Respiratory Rate 20 02/04/19 16:43 Blood Pressure 102/47 L 02/04/19 16:43 O2 Sat by Pulse Oximetry (%) 99 02/04/19 09:00 Constitutional: Yes: Well Nourished, No Distress, Calm Eyes: Yes: Conjunctiva Clear, EOM Intact. No: Sclera Icterus HENT: Yes: Atraumatic, Normocephalic Neck: Yes: Supple, Trachea Midline Cardiovascular: Yes: Regular Rate and Rhythm Respiratory: Yes: Regular, CTA Bilaterally Gastrointestinal: Yes: Normal Bowel Sounds, Soft, Tenderness (RUQ and some around laterally toward back, no surjit/guard), Tenderness, Epigastrium (mild), Other (healed laparoscopic scars). No: Distention ...Rectal Exam: Yes: Deferred Renal/: Yes: CVA Tenderness - Right (mild). No: CVA Tenderness - Left Musculoskeletal: No: Back Pain (no direct tenderness), Joint Swelling Extremities: No: Cool, Cyanosis Edema: No Peripheral Pulses WNL: Yes Integumentary: No: Jaundice, Rash Neurological: Yes: Alert, Oriented Psychiatric: Yes: Alert, Oriented Labs: CBC, BMP 02/04/19 07:10 02/04/19 07:10 CMP Sodium 142 mmol/L (136-145) 02/04/19 07:10 Potassium 3.9 mmol/L (3.5-5.1) 02/04/19 07:10 Chloride 109 mmol/L (98-107) H 02/04/19 07:10 Carbon Dioxide 31 mmol/L (21-32) 02/04/19 07:10 Anion Gap 3 MMOL/L (8-16) L 02/04/19 07:10 BUN 7.8 mg/dL (7-18) 02/04/19 07:10 Creatinine 0.6 mg/dL (0.55-1.3) 02/04/19 07:10 Est GFR (CKD-EPI)AfAm 118.09 02/04/19 07:10 Est GFR (CKD-EPI)NonAf 101.89 02/04/19 07:10 Random Glucose 80 mg/dL (74-106) 02/04/19 07:10 Lactic Acid 1.2 mmol/L (0.4-2.0) 02/03/19 17:27 Calcium 8.5 mg/dL (8.5-10.1) 02/04/19 07:10 Phosphorus 3.2 mg/dL (2.5-4.9) 02/04/19 07:10 Magnesium 2.1 mg/dL (1.8-2.4) 02/04/19 07:10 Total Bilirubin 0.3 mg/dL (0.2-1) 02/04/19 07:10 AST 84 U/L (15-37) H 02/04/19 07:10 ALT 119 U/L (13-61) H 02/04/19 07:10 Alkaline Phosphatase 129 U/L (45-117) H 02/04/19 07:10 Total Protein 5.4 g/dl (6.4-8.2) L 02/04/19 07:10 Albumin 3.0 g/dl (3.4-5.0) L 02/04/19 07:10 Lipase 74 U/L (73-393) 02/03/19 17:27 LFTs down from higher in last couple days, bili has been normal lipase has been normal wbc was 5.8, now back from 3 to 2 INR, PTT INR 1.08 (0.83-1.09) 02/03/19 17:27 Urine Test Results Urine Color Yellow 02/03/19 17:27 Urine Appearance Clear 02/03/19 17:27 Urine pH 5.5 (5.0-8.0) 02/03/19 17:27 Ur Specific Hydro 1.019 (1.010-1.035) 02/03/19 17:27 Urine Protein Negative (NEGATIVE) 02/03/19 17:27 Urine Glucose (UA) Negative (NEGATIVE) 02/03/19 17:27 Urine Ketones 1+ (NEGATIVE) H 02/03/19 17:27 Urine Blood Negative (NEGATIVE) 02/03/19 17:27 Urine Nitrite Negative (NEGATIVE) 02/03/19 17:27 Urine Bilirubin Negative (NEGATIVE) 02/03/19 17:27 Ur Leukocyte Esterase Trace (NEGATIVE) 02/03/19 17:27 Imaging - Results Cat Scan: Report Reviewed, Image Reviewed (prominent cbd and pancreatic duct visible; mild gb wall thickening with some distention; no obstruction, no free air or fluid) Ultrasound: Report Reviewed, Image Reviewed (both US from last few days noted - gallstones, mild wall thickening, cbd 6mm) MRI: Report Reviewed, Image Reviewed (MRCP from 2 nights ago reviewed - few small stones, no overt signs of cholecystitis, no ductal stones; pancreatic duct visible) Other: Pending (HIDA with ejection fraction) Problem List - Problems (1) Calculus of gallbladder w/o mention of cholecystitis or obstruction Assessment/Plan: had bump in LFTs but not bili, which are now decreasing toward normal wbc in normal range MRCP without ductal stones (from 2 nights ago) RUQ and epigastric pain with tenderness still with vomiting with solid food (earlier today) is trying full liquids for dinner if worsening pain or continued vomiting, would revert to NPO except meds GI following - notes appreciated discussed with Dr. Pike - could be related to sphincter of Oddi dysfunction agree with holding narcotics and checking HIDA with EF pt well-known to Dr. Warren per notes, primary team has been in touch with him if he is back this week, would defer operative intervention to him if indicated Code(s): K80.20 - CALCULUS OF GALLBLADDER W/O CHOLECYSTITIS W/O OBSTRUCTION Qualifiers: Cholecystitis presence: without cholecystitis Biliary obstruction: without biliary obstruction Qualified Code(s): K80.20 - Calculus of gallbladder without cholecystitis without obstruction (2) Dysfunction of sphincter of Oddi Assessment/Plan: possible - pending HIDA with EF - may not be done until Tuesday Code(s): K83.4 - SPASM OF SPHINCTER OF ODDI (3) RUQ pain Code(s): R10.11 - RIGHT UPPER QUADRANT PAIN (4) Epigastric pain Code(s): R10.13 - EPIGASTRIC PAIN (5) Nausea & vomiting Code(s): R11.2 - NAUSEA WITH VOMITING, UNSPECIFIED Qualifiers: Vomiting type: unspecified Vomiting Intractability: intractable Qualified Code(s): R11.2 - Nausea with vomiting, unspecified (6) GERD (gastroesophageal reflux disease) Assessment/Plan: continue home PPI Code(s): K21.9 - GASTRO-ESOPHAGEAL REFLUX DISEASE WITHOUT ESOPHAGITIS Qualifiers: Esophagitis presence: without esophagitis Qualified Code(s): K21.9 - Gastro -esophageal reflux disease without esophagitis (7) S/P bariatric surgery Code(s): Z98.84 - BARIATRIC SURGERY STATUS (8) Chronic use of opiate drug for therapeutic purpose Assessment/Plan: HOLDING all narcotics at this time may make sphincter of Oddi dysfunction worse continue home gabapentin ok for Tylenol, consider over NSAIDs in case of procedure? Code(s): Z79.891 - [facility] (CURRENT) USE OF OPIATE ANALGESIC (9) HIV antibody positive Assessment/Plan: would continue home medication Code(s): Z21 - ASYMPTOMATIC HUMAN IMMUNODEFICIENCY VIRUS INFECTION STATUS
[2019-02-04] MEDS ORDERED: MELATONIN 5 MG TABLETS PO ONE (21:08)
[2019-02-04] MEDS: ONDANSETRON 4 MG/2 ML VIAL IVPUSH PRN (22:53)
[2019-02-05] MEDS: HEPARIN NA (PORCINE) 5,000 UNITS/ML 1ML VIAL SQ SCH ×3 (02:10→17:50)
[2019-02-05 07:57] LABS: ALBUMIN 2.9 g/dl (3.4-5.0); BILIRUBIN,TOTAL 0.2 mg/dL (0.2-1); BLOOD UREA NITROGEN 7.8 mg/dL (7-18); CALCIUM 8.5 mg/dL (8.5-10.1); CREATININE 0.6 mg/dL (0.55-1.3); MAGNESIUM 2.1 mg/dL (1.8-2.4); POTASSIUM 3.7 mmol/L (3.5-5.1); TOT PROT 5.4 g/dl (6.4-8.2)
[2019-02-05 07:59] LABS: HEMATOCRIT 29.6 % (32.4-45.2); HEMOGLOBIN 9.9 GM/dL (10.7-15.3); MCHC 33.3 g/dl (32.0-36.0); MEAN CELL VOLUME 93.1 fl (80-96); MEAN PLT VOLUME 9.5 fl (7.5-11.1); PLATELET COUNT 167 K/MM3 (134-434); RBC 3.18 M/mm3 (3.60-5.2); RDW 14.3 % (11.6-15.6); WHITE BLOOD COUNT 2.5 K/mm3 (4.0-10.0)
[2019-02-05] MEDS ORDERED: IBUPROFEN 800 MG/8 ML IJ IVPB PRN (10:26)
[2019-02-05] MEDS: SODIUM CHLORIDE 1,000 ML IV SCH (10:40)
[2019-02-05] MEDS: ONDANSETRON 4 MG/2 ML VIAL IVPUSH PRN (10:44)
--- NOTE | 2019-02-05 14:22 | PN ---
Progress Note (short form) - Note Progress Note: Patient is feeling with no acute distress. No fever or chills. Vital Signs Temperature 98 F 02/05/19 06:05 Pulse Rate 56 L 02/05/19 06:05 Respiratory Rate 16 02/05/19 06:05 Blood Pressure 109/58 L 02/05/19 06:05 O2 Sat by Pulse Oximetry (%) 99 02/04/19 20:36 GENERAL: The patient is awake, alert, and fully oriented, in no acute distress. HEAD: Normal with no signs of trauma. EYES: PERRL, extraocular movements intact, sclera anicteric, conjunctiva clear. ENT: Ears normal, oropharynx clear without exudates, moist mucous membranes. NECK: Trachea midline, full range of motion, supple. LUNGS: Breath sounds equal, clear to auscultation bilaterally, no wheezes, no crackles, no accessory muscle use. HEART: Regular rate and rhythm, S1, S2 without murmur, rub or gallop. ABDOMEN: RUQ tenderness, + nunes's sign , ND, normoactive bowel sounds, no guarding, no rebound, no hepatosplenomegaly, no masses. EXTREMITIES: 2+ pulses, warm, well-perfused, no edema. NEUROLOGICAL: Cranial nerves II through XII grossly intact. Normal speech, gait not observed. PSYCH: Normal mood, normal affect. SKIN: Warm, dry, normal turgor, no rashes or lesion CBCD WBC 2.5 K/mm3 (4.0-10.0) L 02/05/19 07:05 RBC 3.18 M/mm3 (3.60-5.2) L 02/05/19 07:05 Hgb 9.9 GM/dL (10.7-15.3) L 02/05/19 07:05 Hct 29.6 % (32.4-45.2) L 02/05/19 07:05 MCV 93.1 fl (80-96) 02/05/19 07:05 MCHC 33.3 g/dl (32.0-36.0) 02/05/19 07:05 RDW 14.3 % (11.6-15.6) 02/05/19 07:05 Plt Count 167 K/MM3 (134-434) 02/05/19 07:05 MPV 9.5 fl (7.5-11.1) 02/05/19 07:05 CMP Sodium 145 mmol/L (136-145) 02/05/19 07:05 Potassium 3.7 mmol/L (3.5-5.1) 02/05/19 07:05 Chloride 112 mmol/L (98-107) H 02/05/19 07:05 Carbon Dioxide 29 mmol/L (21-32) 02/05/19 07:05 Anion Gap 4 MMOL/L (8-16) L 02/05/19 07:05 BUN 7.8 mg/dL (7-18) 02/05/19 07:05 Creatinine 0.6 mg/dL (0.55-1.3) 02/05/19 07:05 Random Glucose 80 mg/dL (74-106) 02/05/19 07:05 Calcium 8.5 mg/dL (8.5-10.1) 02/05/19 07:05 Total Bilirubin 0.2 mg/dL (0.2-1) 02/05/19 07:05 AST 37 U/L (15-37) 02/05/19 07:05 ALT 80 U/L (13-61) H 02/05/19 07:05 Alkaline Phosphatase 114 U/L (45-117) 02/05/19 07:05 Total Protein 5.4 g/dl (6.4-8.2) L 02/05/19 07:05 Albumin 2.9 g/dl (3.4-5.0) L 02/05/19 07:05 Current Medications Generic Name Dose Route Start Last Admin Trade Name Freq PRN Reason Stop Dose Admin Heparin Sodium (Porcine) 5,000 unit 02/04/19 10:00 02/05/19 09:43 Heparin - SQ 5,000 unit Q8H-IV AVINASH Administration Sodium Chloride 1,000 mls @ 150 mls/hr 02/04/19 11:00 02/05/19 10:40 Normal Saline - IV 02/05/19 17:39 150 mls/hr ASDIR AVINASH Administration Ondansetron HCl 4 mg 02/04/19 21:07 02/05/19 10:44 Zofran Injection IVPUSH 4 mg Q6H PRN Administration NAUSEA AND/OR VOMITING Home Medications Medication Instructions Recorded Calcium Carbonate [Calcium] 500 mg PO DAILY #30 tablet 09/28/17 Omeprazole 20 mg PO DAILY PRN #30 capsule. 11/23/17 MDD 1 Efavirenz/Emtricitab/Tenofovir 1 tab PO DAILY #30 tab 06/27/18 [Atripla Tablet -] Multivitamin [Multiple Vitamins] 1 each PO DAILY #30 tablet 10/13/18 Ascorbic Acid [Vitamin C -] 500 mg PO DAILY #30 tablet 12/13/18 Gabapentin [Neurontin] 600 mg PO TID #90 tablet 12/13/18 Vitamin B Complex 1 each PO DAILY #30 capsule 12/13/18 Cholecalciferol (Vitamin D3) 5,000 unit PO DAILY #30 tab.rapdis 01/15/19 [Vitamin D3] Lactose-Reduced Food [Ensure 1 can PO TID #90 liquid 01/19/19 Liquid] Acetaminophen 650 mg PO BID PRN 02/03/19 Diphenhydramine [Benadryl Capsule 50 mg PO HS 02/03/19 -] Oxycodone HCl/Acetaminophen 10 mg PO QID MDD 4 02/03/19 [Percocet 10-325 mg Tablet] Polyethylene Glycol 3350 [Miralax 17 gm PO HS 02/03/19 119 gm Btl -] CT of abdomen and pelvis: Moderate gallbladder distention suspesious of gallbladder dysmotility ASSESSMENT AND PLAN: Ms. Bolden is a 58 year old woman with a past medical history of gallstones, HIV ( on atripla,) and morbid obesity (s/p lap gastric sleeve last year by Dr. Warren; who presented to the ED with 3 days of RUQ associated with n/v and decreased appetite # Moderate gallbladder distention with gallbladder motility can't r/o acute cholecystitis , patient will be going to HIDA scan with EJF in am if positive then sx # sphincter of oddi dysfunction, stay away from narcotics . No tylenol since LFTs are elevated as well, will dc motrin for possible sx , kate continue with IV tylenol ,trend LFTS, NS @150mls #HIV continue home meds atriptla DVT Px: heparin Visit type - Emergency Visit Emergency Visit: Yes ED Registration Date: 02/04/19 Care time: The patient presented to the Emergency Department on the above date and was hospitalized for further evaluation of their emergent condition. - New Patient This patient is new to me today: No - Critical Care Critical Care patient: No - Discharge Referral Referred to [facility] No
[2019-02-05] MEDS: ALPRAZolam 0.25 MG TABLET PO PRN (15:02)
[2019-02-05] MEDS: ACETAMINOPHEN 1000 MG/100 ML VIAL (NON FORMULARY) IVPB PRN (17:50)
[2019-02-06] MEDS: SODIUM CHLORIDE 1,000 ML IV SCH ×2 (01:20→21:30)
[2019-02-06] MEDS: HEPARIN NA (PORCINE) 5,000 UNITS/ML 1ML VIAL SQ SCH ×3 (01:21→18:21)
[2019-02-06] MEDS: ACETAMINOPHEN 1000 MG/100 ML VIAL (NON FORMULARY) IVPB PRN ×2 (04:50→13:32)
[2019-02-06 08:27] LABS: HEMATOCRIT 30.9 % (32.4-45.2); HEMOGLOBIN 10.2 GM/dL (10.7-15.3); LYMPH % 58.6 % (8-40); MCH 30.7 pg (25.7-33.7); MEAN PLT VOLUME 9.4 fl (7.5-11.1); MONO % 8.7 % (3.8-10.2); NEUT % 27.7 % (42.8-82.8); PLATELET COUNT 188 K/MM3 (134-434); RBC 3.33 M/mm3 (3.60-5.2); RDW 14.3 % (11.6-15.6); WHITE BLOOD COUNT 2.8 K/mm3 (4.0-10.0)
[2019-02-06] MEDS: ALPRAZolam 0.25 MG TABLET PO PRN ×2 (08:56→21:34)
[2019-02-06 08:58] LABS: ALBUMIN 3.2 g/dl (3.4-5.0); BILIRUBIN,TOTAL 0.2 mg/dL (0.2-1); BLOOD UREA NITROGEN 5.6 mg/dL (7-18); CALCIUM 8.4 mg/dL (8.5-10.1); CREATININE 0.6 mg/dL (0.55-1.3); PHOSPHOROUS 2.7 mg/dL (2.5-4.9); POTASSIUM 3.5 mmol/L (3.5-5.1); TOT PROT 5.9 g/dl (6.4-8.2)
--- NOTE | 2019-02-06 12:36 | PN ---
Physical Exam: SUBJECTIVE: Patient seen and examined. Pt was standing and moving around. She complained of some RUQ pain and was given tylenol for it. OBJECTIVE: Vital Signs Period Temp Pulse Resp BP Sys/Dickson Pulse Ox Last 24 Hr 97.6 F-99 F 49-66 18-20 93-110/52-65 GENERAL: The patient is awake, alert, and fully oriented HEAD: Normal with no signs of trauma. LUNGS: Breath sounds equal, clear to auscultation bilaterally, no wheezes, no crackles, no accessory muscle use. HEART: Regular rate and rhythm, S1, S2 without murmur, rub or gallop. ABDOMEN: Soft, nontender, nondistended, normoactive bowel sounds, no guarding, no rebound, no hepatosplenomegaly, no masses. EXTREMITIES: 2+ pulses, warm, well-perfused, no edema. Laboratory Results - last 24 hr 02/06/19 02/06/19 08:00 08:00 WBC 2.8 L RBC 3.33 L Hgb 10.2 L Hct 30.9 L MCV 93.0 MCH 30.7 MCHC 33.0 RDW 14.3 Plt Count 188 MPV 9.4 Absolute Neuts (auto) 0.8 L Neutrophils % 27.7 L D Lymphocytes % 58.6 H D Monocytes % 8.7 Eosinophils % 4.0 Basophils % 1.0 Nucleated RBC % 0 Sodium 144 Potassium 3.5 Chloride 111 H Carbon Dioxide 28 Anion Gap 5 L BUN 5.6 L Creatinine 0.6 Est GFR (CKD-EPI)AfAm 118.09 Est GFR (CKD-EPI)NonAf 101.89 Random Glucose 85 Calcium 8.4 L Phosphorus 2.7 Magnesium 2.0 Total Bilirubin 0.2 AST 27 ALT 70 H Alkaline Phosphatase 118 H Total Protein 5.9 L Albumin 3.2 L Active Medications Generic Name Dose Route Start Last Admin Trade Name Freq PRN Reason Stop Dose Admin Acetaminophen 1,000 mg 02/05/19 16:49 02/06/19 04:50 Ofirmev Injection - IVPB 1,000 mg Q8H PRN Administration PAIN 1-10 Alprazolam 0.25 mg 02/05/19 14:40 02/06/19 08:56 Xanax - PO 0.25 mg Q12H PRN Administration AGITATION Heparin Sodium (Porcine) 5,000 unit 02/04/19 10:00 02/06/19 01:21 Heparin - SQ 5,000 unit Q8H-IV AVINASH Administration Sodium Chloride 1,000 mls @ 125 mls/hr 02/05/19 19:45 02/06/19 01:20 Normal Saline - IV 02/07/19 03:44 125 mls/hr ASDIR AVINASH Administration Ondansetron HCl 4 mg 02/04/19 21:07 02/05/19 10:44 Zofran Injection IVPUSH 4 mg Q6H PRN Administration NAUSEA AND/OR VOMITING ASSESSMENT/PLAN: 58 year old woman with a past medical history of gallstones, HIV (on atripla,) and morbid obesity (s/p lap gastric sleeve last year by Dr. Warren; who presented to the ED with 3 days of RUQ associated with n/v and decreased appetite RUQ Pain and abnormal LFTs Patient went for HIDA scan today. HIDA showed Filling of the gallbladder excludes acute cystic duct obstruction. Normal gallbladder ejection fraction of 94%. Delayed biliary enteric transit of tracer until the administration of food is a nonspecific and could be seen with distal nonobstructive CBD stricture or biliary dyskinesia/ sphincter of oddi dysfunction. AVOID narcotics for pain control will continue with IV tylenol Trend LFTS NS @150mls HIV Home meds atriptla DVT PPX Heparin subQ Visit type - Emergency Visit Emergency Visit: Yes ED Registration Date: 02/04/19 Care time: The patient presented to the Emergency Department on the above date and was hospitalized for further evaluation of their emergent condition. - New Patient This patient is new to me today: Yes Date on this admission: 02/06/19 - Critical Care Critical Care patient: No - Discharge Referral Referred to [facility] Med P.C.: No ATTENDING PHYSICIAN STATEMENT I saw and evaluated the patient. I reviewed the resident's note and discussed the case with the resident. I agree with the resident's findings and plan as documented. SUBJECTIVE: OBJECTIVE: ASSESSMENT AND PLAN:
--- NOTE | 2019-02-06 17:07 | PN ---
Teaching Attending Note Name of Resident: Lizett Stein ATTENDING PHYSICIAN STATEMENT I saw and evaluated the patient. I reviewed the resident's note and discussed the case with the resident. I agree with the resident's findings and plan as documented. SUBJECTIVE: Patient is comfortable wants to go home, but was not able to tolerate her lunch. OBJECTIVE: Vital Signs Temperature 98.2 F 02/06/19 14:00 Pulse Rate 62 02/06/19 14:00 Respiratory Rate 18 02/06/19 14:00 Blood Pressure 120/69 02/06/19 14:00 O2 Sat by Pulse Oximetry (%) 96 02/05/19 09:00 GENERAL: The patient is awake, alert, and fully oriented, in no acute distress. HEAD: Normal with no signs of trauma. EYES: PERRL, extraocular movements intact, sclera anicteric, conjunctiva clear. ENT: Ears normal, oropharynx clear without exudates, moist mucous membranes. NECK: Trachea midline, full range of motion, supple. LUNGS: Breath sounds equal, clear to auscultation bilaterally, no wheezes, no crackles, no accessory muscle use. HEART: Regular rate and rhythm, S1, S2 without murmur, rub or gallop. ABDOMEN: mild tenderness, ND, normoactive bowel sounds, no guarding, no rebound , no hepatosplenomegaly, no masses. EXTREMITIES: 2+ pulses, warm, well-perfused, no edema. NEUROLOGICAL: Cranial nerves II through XII grossly intact. Normal speech, gait not observed. PSYCH: Normal mood, normal affect. SKIN: Warm, dry, normal turgor, no rashes or lesion CBCD WBC 2.8 K/mm3 (4.0-10.0) L 02/06/19 08:00 RBC 3.33 M/mm3 (3.60-5.2) L 02/06/19 08:00 Hgb 10.2 GM/dL (10.7-15.3) L 02/06/19 08:00 Hct 30.9 % (32.4-45.2) L 02/06/19 08:00 MCV 93.0 fl (80-96) 02/06/19 08:00 MCHC 33.0 g/dl (32.0-36.0) 02/06/19 08:00 RDW 14.3 % (11.6-15.6) 02/06/19 08:00 Plt Count 188 K/MM3 (134-434) 02/06/19 08:00 MPV 9.4 fl (7.5-11.1) 02/06/19 08:00 CMP Sodium 144 mmol/L (136-145) 02/06/19 08:00 Potassium 3.5 mmol/L (3.5-5.1) 02/06/19 08:00 Chloride 111 mmol/L (98-107) H 02/06/19 08:00 Carbon Dioxide 28 mmol/L (21-32) 02/06/19 08:00 Anion Gap 5 MMOL/L (8-16) L 02/06/19 08:00 BUN 5.6 mg/dL (7-18) L 02/06/19 08:00 Creatinine 0.6 mg/dL (0.55-1.3) 02/06/19 08:00 Random Glucose 85 mg/dL (74-106) 02/06/19 08:00 Calcium 8.4 mg/dL (8.5-10.1) L 02/06/19 08:00 Total Bilirubin 0.2 mg/dL (0.2-1) 02/06/19 08:00 AST 27 U/L (15-37) 02/06/19 08:00 ALT 70 U/L (13-61) H 02/06/19 08:00 Alkaline Phosphatase 118 U/L (45-117) H 02/06/19 08:00 Total Protein 5.9 g/dl (6.4-8.2) L 02/06/19 08:00 Albumin 3.2 g/dl (3.4-5.0) L 02/06/19 08:00 Current Medications Generic Name Dose Route Start Last Admin Trade Name Freq PRN Reason Stop Dose Admin Acetaminophen 1,000 mg 02/05/19 16:49 02/06/19 13:32 Ofirmev Injection - IVPB 1,000 mg Q8H PRN Administration PAIN 1-10 Alprazolam 0.25 mg 02/05/19 14:40 02/06/19 08:56 Xanax - PO 0.25 mg Q12H PRN Administration AGITATION Heparin Sodium (Porcine) 5,000 unit 02/04/19 10:00 02/06/19 12:52 Heparin - SQ 5,000 unit Q8H-IV AVINASH Administration Sodium Chloride 1,000 mls @ 125 mls/hr 02/05/19 19:45 02/06/19 01:20 Normal Saline - IV 02/07/19 03:44 125 mls/hr ASDIR AVINASH Administration Ondansetron HCl 4 mg 02/04/19 21:07 02/05/19 10:44 Zofran Injection IVPUSH 4 mg Q6H PRN Administration NAUSEA AND/OR VOMITING CT of abdomen and pelvis: Moderate gallbladder distention suspesious of gallbladder dysmotility MRI of the gallbladder: EXCLUDES ACUTE CYSTIC DUCT OBSTRUCTION, NORMAL GALLBLADDER EJECTION FRACTION (94%) ASSESSMENT AND PLAN: Ms. Bolden is a 58 year old woman with a past medical history of gallstones, HIV ( on atripla,) and morbid obesity (s/p lap gastric sleeve last year by Dr. Warren ( lost around 160lbs) who presented to the ED with 3 days of RUQ associated with n/v and decreased appetite # Moderate gallbladder distention with gallbladder dismotility ON ct OF ABDOMEN AND PELVIS. mri REPORTS NO CYSTIC DUCT OBSTRUCTION. dYSMOTILITY DUE TO NARCOTIC USE, RECOMMENDED TO USE IT NEEDED BASIS SINCE PATIENT HAS A BACK PAIN LING STANDING. # sphincter of oddi dysfunction, stay away from narcotics ONLY NEEDED BASIS. No tylenol since LFTs are elevated as well, # HIV continue home meds atriptla DVT Px: heparin DC PATIENT ONCE ABLE TO TOLERATE DIET.
--- NOTE | 2019-02-06 17:47 | PN.GI ---
GI Progress Note Subjective: GI NOte: Had pain and vomiting after liquid lunch but is pain free at present. Dr Pike discussed this case earlier with me which I have relayed to Alycia. I have discussed the suspicion of sphincter of Oddi dysfunction ( SOD) vs repeated small gallstone or sludge passage as a possible explanation for her symptoms that are now associated with LFT fluctuations and CBD and pancreatic ductal dilation ( her CBD was normal in caliber on her 11/22 MRCP when it's wall was felt to be thickened; the CBD was 10mm dilation on her 02/03/19 MRI). Her LFTs have normalized on each occasion. The pain has been aggravated by morphine which leans toward SOD. Her Hida scan has excluded acute cholecystitis but not a role for repeated stone passage. I explained that SOD is sometimes successfully managed by sphincterotomy but that this carries with it a high rate of ERCP induced pancreatitis and therefore manometry is often done to confirm the diagnosis. Her gastric sleeve narrowing adds to the complexity of doing an ERCP. Given these one can argue that a cholecystectomy to remove the alternative possibility should be the next option. After discussion these issues with Alycia she prefers to have further evaluation at a tertiary care center that can do the manometry and has SOD and gastric sleeve experience. She has been previously treated at [facility] so I have given her name of Dr. Asim Gupta - Objective Vital Signs: Vital Signs Temperature 98.2 F 02/06/19 14:00 Pulse Rate 62 02/06/19 14:00 Respiratory Rate 18 02/06/19 14:00 Blood Pressure 120/69 02/06/19 14:00 O2 Sat by Pulse Oximetry (%) 96 02/05/19 09:00 Laboratory Tests 02/03/19 02/03/19 02/04/19 17:27 17:27 07:10 Total Bilirubin 0.6 AST 187 H 84 H ALT 171 H 119 H Alkaline Phosphatase 160 H 129 H Lipase 74 02/06/19 08:00 Total Bilirubin 0.2 AST 27 ALT 70 H Alkaline Phosphatase 118 H Lipase Constitutional: Anxious ...Auscultate: Yes: Normoactive Bowel Sounds ...Palpate: Yes: Soft, Other (nontender) Labs: CBC, BMP 02/06/19 08:00 02/06/19 08:00 INR, PTT INR 1.08 (0.83-1.09) 02/03/19 17:27 - ....Imaging MRI: Image Reviewed ( Final Report MR ABDOMEN MRI WITH CONTRAST/MRCP Show Printer-Friendly Version Patient Name: Alycia Marti : 1960 ID: [id number] Study Date: 02-Feb-2019 22:01 Lauryn Jones Name: ALYCIA MARTI DEPARTMENT OF RADIOLOGY Phys: Antoinette Hernandez RESIDENT : 1960 Age: 58 Sex: F [facility] Acct: [id number] Loc: [id number] [facility] Exam Date: 02/02/19 Status: [place] [address] Unit Number: [id number] EXAM#: TYPE/EXAM: RESULT: [id number] MRI/ABDOMEN MRI WITH CONTRAST/MRCP MRI/MRCP of the abdomen. History: Rule out cholecystitis. Technique: Multi sequential MRI/MRCP of the abdomen was obtained in multiple planes before and after the administration of 15 cc of Gadavist. 3-D MRCP reconstructions were performed. Findings: The visualized lung bases demonstrate a trace pericardial effusion. Enlargement of the right heart border noted. The liver is normal in size and signal intensity. No enhancing liver mass noted. The hepatic veins are patent. The portal vein is patent. The gallbladder is distended. Small gallstones noted within the gallbladder measuring up to 6 mm. The visualized cystic duct appears unremarkable. The common bile duct measures 10 mm. No choledocholithiasis. No pancreatic ductal dilatation. No peripancreatic inflammation. Spleen is grossly unremarkable. The stomach is under distended. The adrenal glands are grossly unremarkable. The kidneys demonstrate symmetric enhancement with no contour deforming mass or hydronephrosis. The abdominal aorta demonstrates normal caliber. Large amount of fecal material noted throughout the colon. Impression: Small gallstones measuring up to 6 mm. No signs of acute cholecystitis. No choledocholithiasis. No pancreatitis. Constipation. Reported By: Geronimo Nevarez MD 02/03/19 1255 ANTOINETTE HERNANDEZ Technologist: Jose Stanley Transcribed Date/Time: 02/03/19 1255 Lithography Contact Worker: Geronimo Nevarez Printed Date/Time: By: Signed by: Geronimo Nevarez Signed on: 2018 12:55) Assessment/Plan Assessment: - Recurring RUQ pain with LFT fluctuations, ductal dilations and which are aggravated by morphine suggests SOD but repeated GB stone or sludge passage cannot be excluded. This pain should respond to narcotics however. Situation is complicated by a gastric sleeve that has required dilations - Opiate contsipation Plan: - Hope to ultimately get Alycia to see Dr. Asim Gupta who can do sphincter of Oddi manometry and has more experience with SOD sphincterotomies and perhaps tight gastric sleeve ERCPs. - Trial of Reglan and Ursodiol - Avoid narcotics - Miralax for her constipation Problem List - Problems (1) Dysfunction of sphincter of Oddi Code(s): K83.4 - SPASM OF SPHINCTER OF ODDI (2) Epigastric pain Code(s): R10.13 - EPIGASTRIC PAIN (3) Nausea & vomiting Code(s): R11.2 - NAUSEA WITH VOMITING, UNSPECIFIED Qualifiers: Vomiting type: unspecified Vomiting Intractability: intractable Qualified Code(s): R11.2 - Nausea with vomiting, unspecified (4) Calculus of gallbladder w/o mention of cholecystitis or obstruction Code(s): K80.20 - CALCULUS OF GALLBLADDER W/O CHOLECYSTITIS W/O OBSTRUCTION Qualifiers: Cholecystitis presence: without cholecystitis Biliary obstruction: without biliary obstruction Qualified Code(s): K80.20 - Calculus of gallbladder without cholecystitis without obstruction (5) Common bile duct dilation Code(s): K83.8 - OTHER SPECIFIED DISEASES OF BILIARY TRACT (6) Constipation due to opioid therapy Code(s): K59.03 - DRUG INDUCED CONSTIPATION; T40.2X5A - ADVERSE EFFECT OF OTHER OPIOIDS, INITIAL ENCOUNTER (7) S/P bariatric surgery Code(s): Z98.84 - BARIATRIC SURGERY STATUS (8) HIV antibody positive Code(s): Z21 - ASYMPTOMATIC HUMAN IMMUNODEFICIENCY VIRUS INFECTION STATUS (9) Post laminectomy syndrome Code(s): M96.1 - POSTLAMINECTOMY SYNDROME, NOT ELSEWHERE CLASSIFIED
--- NOTE | 2019-02-06 18:08 | PN ---
Progress Note, Physician History of Present Illness: Pt with RUQ pain, N/V, thought possibly due to Sphincter of Oddi dysfunction after excluding delayed gastric emptying (after lap gastric sleeve), acute cholecystitis or choledocholithiasis, and HIDA with EF now shows normal EF of 94 %. It does however, note biliary tracer does not empty into duodenum/SB until food intake in stomach - could be consistent with SOD. She vomited po intake earlier, including some water, though was hoping to go home. She is seen and examined in bed. Still with discomfort in RUQ. GI note reviewed and appreciated. - Current Medication List Current Medications: Active Medications Acetaminophen (Ofirmev Injection -) 1,000 mg IVPB Q8H PRN PRN Reason: PAIN 1-10 Last Admin: 02/06/19 13:32 Dose: 1,000 mg Alprazolam (Xanax -) 0.25 mg PO Q12H PRN PRN Reason: AGITATION Last Admin: 02/06/19 08:56 Dose: 0.25 mg Heparin Sodium (Porcine) (Heparin -) 5,000 unit SQ Q8H-IV AVINASH Last Admin: 02/06/19 12:52 Dose: 5,000 unit Sodium Chloride (Normal Saline -) 1,000 mls @ 125 mls/hr IV ASDIR AVINASH Stop: 02/07/19 03:44 Last Admin: 02/06/19 01:20 Dose: 125 mls/hr Metoclopramide HCl (Reglan Injection -) 10 mg IVPUSH Q6H AVINASH Ondansetron HCl (Zofran Injection) 4 mg IVPUSH Q6H PRN PRN Reason: NAUSEA AND/OR VOMITING Last Admin: 02/05/19 10:44 Dose: 4 mg Ursodiol (Actigal -) 300 mg PO BID AVINASH - Objective Vital Signs: Vital Signs Temperature 98.2 F 02/06/19 14:00 Pulse Rate 62 02/06/19 14:00 Respiratory Rate 18 02/06/19 14:00 Blood Pressure 120/69 02/06/19 14:00 O2 Sat by Pulse Oximetry (%) 96 02/05/19 09:00 Constitutional: Yes: Well Nourished, No Distress, Calm Eyes: Yes: Conjunctiva Clear, EOM Intact HENT: Yes: Atraumatic, Normocephalic Gastrointestinal: Yes: Soft, Tenderness (RUQ), Tenderness, Epigastrium (minimal) . No: Tenderness, Rebound Extremities: No: Cool, Cyanosis Integumentary: No: Jaundice, Rash Neurological: Yes: Alert, Oriented Labs: CBC, BMP 02/06/19 08:00 02/06/19 08:00 CMP Sodium 144 mmol/L (136-145) 02/06/19 08:00 Potassium 3.5 mmol/L (3.5-5.1) 02/06/19 08:00 Chloride 111 mmol/L (98-107) H 02/06/19 08:00 Carbon Dioxide 28 mmol/L (21-32) 02/06/19 08:00 Anion Gap 5 MMOL/L (8-16) L 02/06/19 08:00 BUN 5.6 mg/dL (7-18) L 02/06/19 08:00 Creatinine 0.6 mg/dL (0.55-1.3) 02/06/19 08:00 Est GFR (CKD-EPI)AfAm 118.09 02/06/19 08:00 Est GFR (CKD-EPI)NonAf 101.89 02/06/19 08:00 Random Glucose 85 mg/dL (74-106) 02/06/19 08:00 Lactic Acid 1.2 mmol/L (0.4-2.0) 02/03/19 17:27 Calcium 8.4 mg/dL (8.5-10.1) L 02/06/19 08:00 Phosphorus 2.7 mg/dL (2.5-4.9) 02/06/19 08:00 Magnesium 2.0 mg/dL (1.8-2.4) 02/06/19 08:00 Total Bilirubin 0.2 mg/dL (0.2-1) 02/06/19 08:00 AST 27 U/L (15-37) 02/06/19 08:00 ALT 70 U/L (13-61) H 02/06/19 08:00 Alkaline Phosphatase 118 U/L (45-117) H 02/06/19 08:00 Total Protein 5.9 g/dl (6.4-8.2) L 02/06/19 08:00 Albumin 3.2 g/dl (3.4-5.0) L 02/06/19 08:00 Lipase 74 U/L (73-393) 02/03/19 17:27 LFTs essentially normalized - ....Imaging Other: Report Reviewed (HIDA results noted - gallbladder filled within 10 mins, biliary tree fills promptly but does not empty into SB until food intake; EF 94 % after Ensure given) Problem List - Problems (1) Calculus of gallbladder w/o mention of cholecystitis or obstruction Assessment/Plan: possible sphincter of Oddi dysfunction agree with holding narcotics and minimizing usage GI plan noted - referred to tertiary GI for further workup of SOD pt well-known to Dr. Warren would defer operative intervention to him if/when indicated will sign off Thank you for the opportunity to participate in the care of this patient. Code(s): K80.20 - CALCULUS OF GALLBLADDER W/O CHOLECYSTITIS W/O OBSTRUCTION Qualifiers: Cholecystitis presence: without cholecystitis Biliary obstruction: without biliary obstruction Qualified Code(s): K80.20 - Calculus of gallbladder without cholecystitis without obstruction (2) Dysfunction of sphincter of Oddi Assessment/Plan: see above Code(s): K83.4 - SPASM OF SPHINCTER OF ODDI (3) RUQ pain Code(s): R10.11 - RIGHT UPPER QUADRANT PAIN (4) Epigastric pain Code(s): R10.13 - EPIGASTRIC PAIN (5) Nausea & vomiting Code(s): R11.2 - NAUSEA WITH VOMITING, UNSPECIFIED Qualifiers: Vomiting type: unspecified Vomiting Intractability: intractable Qualified Code(s): R11.2 - Nausea with vomiting, unspecified (6) GERD (gastroesophageal reflux disease) Assessment/Plan: continue home PPI Code(s): K21.9 - GASTRO-ESOPHAGEAL REFLUX DISEASE WITHOUT ESOPHAGITIS Qualifiers: Esophagitis presence: without esophagitis Qualified Code(s): K21.9 - Gastro -esophageal reflux disease without esophagitis (7) S/P bariatric surgery Code(s): Z98.84 - BARIATRIC SURGERY STATUS (8) Chronic use of opiate drug for therapeutic purpose Code(s): Z79.891 - BOARDING MOTHER (CURRENT) USE OF OPIATE ANALGESIC (9) HIV antibody positive Assessment/Plan: would continue home medication Code(s): Z21 - ASYMPTOMATIC HUMAN IMMUNODEFICIENCY VIRUS INFECTION STATUS
[2019-02-06] MEDS: METOCLOPRAMIDE HCL INJECTION 10 MG/2 ML VIAL IVPUSH SCH (18:21)
[2019-02-06] MEDS: URSODIOL 300 MG CAPSULE PO SCH (21:30)
[2019-02-06] MEDS ORDERED: PT OWN MED DRAWER 7, Y5N ONE (22:11)
[2019-02-07] MEDS: HEPARIN NA (PORCINE) 5,000 UNITS/ML 1ML VIAL SQ SCH ×2 (01:34→10:15)
[2019-02-07] MEDS: METOCLOPRAMIDE HCL INJECTION 10 MG/2 ML VIAL IVPUSH SCH ×2 (01:34→06:14)
[2019-02-07 06:40] LABS: BASO % 0.3 % (0-2.0); EOS % 5.6 % (0-4.5); HEMOGLOBIN 9.7 GM/dL (10.7-15.3); LYMPH % 54.3 % (8-40); MCH 31.1 pg (25.7-33.7); MCHC 33.5 g/dl (32.0-36.0); MEAN CELL VOLUME 93.1 fl (80-96); MEAN PLT VOLUME 10.1 fl (7.5-11.1); NEUT % 29.8 % (42.8-82.8); PLATELET COUNT 164 K/MM3 (134-434); RBC 3.11 M/mm3 (3.60-5.2); RDW 14.5 % (11.6-15.6); WHITE BLOOD COUNT 3.9 K/mm3 (4.0-10.0)
[2019-02-07 06:44] LABS: ALBUMIN 2.9 g/dl (3.4-5.0); BILIRUBIN,TOTAL 0.2 mg/dL (0.2-1); BLOOD UREA NITROGEN 6.1 mg/dL (7-18); CALCIUM 8.3 mg/dL (8.5-10.1); CREATININE 0.7 mg/dL (0.55-1.3); MAGNESIUM 2.1 mg/dL (1.8-2.4); POTASSIUM 3.6 mmol/L (3.5-5.1); TOT PROT 5.3 g/dl (6.4-8.2)
[2019-02-07] MEDS ORDERED: PT OWN MED DRAWER 7, Y5N ONE (10:14)
[2019-02-07] MEDS: URSODIOL 300 MG CAPSULE PO SCH (10:15)
[2019-02-07 12:09] VITALS: BP 100/60; PULSE 53; TEMP 98.2
--- NOTE | 2019-02-07 12:42 | PN.GI ---
GI Progress Note Subjective: GI NOte: Pain and vomiting free and tolerating solids. No GI objections to discharge with plan to go to [facility] for SOD studies with Dr Asim Gupta - Objective Vital Signs: Vital Signs Temperature 98.2 F 02/07/19 10:00 Pulse Rate 53 L 02/07/19 10:00 Respiratory Rate 20 02/07/19 10:00 Blood Pressure 100/60 02/07/19 10:00 O2 Sat by Pulse Oximetry (%) 96 02/06/19 09:00 Laboratory Tests 02/03/19 02/07/19 02/07/19 17:27 05:30 05:30 WBC 3.9 L Total Bilirubin 0.2 AST 21 ALT 52 Alkaline Phosphatase 102 Lipase 74 Constitutional: No Distress ...Auscultate: Yes: Normoactive Bowel Sounds ...Palpate: Yes: Soft, Other (nontender) Labs: CBC, BMP 02/07/19 05:30 02/07/19 05:30 INR, PTT INR 1.08 (0.83-1.09) 02/03/19 17:27 Assessment/Plan Assessment: - Recurring RUQ pain with LFT fluctuations, ductal dilations and which are aggravated by morphine suggests SOD but repeated GB stone or sludge passage cannot be excluded. This pain should respond to narcotics however. Situation is complicated by a gastric sleeve that has required dilations - Opiate contsipation Plan: - No GI objections to discharge with plan to go to [facility] for SOD studies with Dr Asim Gupta who can do sphincter of Oddi manometry and has more experience with SOD sphincterotomies and perhaps tight gastric sleeve ERCPs. - Avoid narcotics - Miralax for her constipation Problem List - Problems (1) Dysfunction of sphincter of Oddi Code(s): K83.4 - SPASM OF SPHINCTER OF ODDI (2) Epigastric pain Code(s): R10.13 - EPIGASTRIC PAIN (3) Nausea & vomiting Code(s): R11.2 - NAUSEA WITH VOMITING, UNSPECIFIED Qualifiers: Vomiting type: unspecified Vomiting Intractability: intractable Qualified Code(s): R11.2 - Nausea with vomiting, unspecified (4) Calculus of gallbladder w/o mention of cholecystitis or obstruction Code(s): K80.20 - CALCULUS OF GALLBLADDER W/O CHOLECYSTITIS W/O OBSTRUCTION Qualifiers: Cholecystitis presence: without cholecystitis Biliary obstruction: without biliary obstruction Qualified Code(s): K80.20 - Calculus of gallbladder without cholecystitis without obstruction (5) Common bile duct dilation Code(s): K83.8 - OTHER SPECIFIED DISEASES OF BILIARY TRACT (6) Constipation due to opioid therapy Code(s): K59.03 - DRUG INDUCED CONSTIPATION; T40.2X5A - ADVERSE EFFECT OF OTHER OPIOIDS, INITIAL ENCOUNTER (7) S/P bariatric surgery Code(s): Z98.84 - BARIATRIC SURGERY STATUS (8) HIV antibody positive Code(s): Z21 - ASYMPTOMATIC HUMAN IMMUNODEFICIENCY VIRUS INFECTION STATUS (9) Post laminectomy syndrome Code(s): M96.1 - POSTLAMINECTOMY SYNDROME, NOT ELSEWHERE CLASSIFIED
--- NOTE | 2019-02-07 17:28 | DS ---
Physical Exam: SUBJECTIVE: Patient seen and examined. Patient was standing in the bathroom combing her hair pain free. OBJECTIVE: Vital Signs Period Temp Pulse Resp BP Sys/Dickson Pulse Ox Last 24 Hr 98.1 F-98.2 F 45-71 20-20 93-105/42-60 PHYSICAL EXAM GENERAL: The patient is awake, alert, and fully oriented, in no acute distress. HEAD: Normal with no signs of trauma. LUNGS: Breath sounds equal, clear to auscultation bilaterally, no wheezes, no crackles, no accessory muscle use. HEART: Regular rate and rhythm, S1, S2 without murmur, rub or gallop. ABDOMEN: Soft, nontender, nondistended, normoactive bowel sounds, no guarding, no rebound, no hepatosplenomegaly, no masses. EXTREMITIES: 2+ pulses, warm, well-perfused, no edema. LABS Laboratory Results - last 24 hr 02/07/19 02/07/19 05:30 05:30 WBC 3.9 L RBC 3.11 L Hgb 9.7 L Hct 29.0 L MCV 93.1 MCH 31.1 MCHC 33.5 RDW 14.5 Plt Count 164 MPV 10.1 Absolute Neuts (auto) 1.2 L Neutrophils % 29.8 L Lymphocytes % 54.3 H Monocytes % 10.0 Eosinophils % 5.6 H Basophils % 0.3 Nucleated RBC % 0 Sodium 148 H Potassium 3.6 Chloride 110 H Carbon Dioxide 29 Anion Gap 8 BUN 6.1 L Creatinine 0.7 Est GFR (CKD-EPI)AfAm 112.26 Est GFR (CKD-EPI)NonAf 96.86 Random Glucose 80 Calcium 8.3 L Magnesium 2.1 Total Bilirubin 0.2 AST 21 ALT 52 Alkaline Phosphatase 102 Total Protein 5.3 L Albumin [address] abdomen 02/03/19:Prominent caliber of CBD with no definite stones or cholecystitis. Prominent caliber of pancreatic duct. HIDA 02/04/19: showed Filling of the gallbladder excludes acute cystic duct obstruction. Normal gallbladder ejection fraction of 94%. Delayed biliary enteric transit of tracer until the administration of food is a nonspecific and could be seen with distal nonobstructive CBD stricture or biliary dyskinesia/ sphincter of oddi dysfunction. HOSPITAL COURSE: Date of Admission:02/04/19 Pt returned after leaving AMA. She was being conservatively managed for acute cholelithisiais on prior admission. Symptoms of nausea, vomiting, and abdominal pain returned. In the ED, MRCP 6 mm gall stone with no acute cholecystitis or pancreatitis. A CT scan of the abdomen showed mild common bile duct dilation. Patient was given morphine for pain. Because of continued RUQ pain N/V and abnormal LFTs, HIDA with EF scan was ordered to further evaluate the biliary system. HIDA showed Filling of the gallbladder excludes acute cystic duct obstruction, normal gallbladder ejection fraction of 94%, delayed biliary enteric transit of tracer until the administration of food is a nonspecific and could be seen with distal non obstructive CBD stricture or biliary dyskinesia/ sphincter of oddi dysfunction. At that point patient's was control with IV tylenol as Narcotics were avoided to prevent exacerbation of her symptoms. Pt's symptoms began to improve LFTs trending down and she tolerated diet. Pt is advised to follow up with Dr Warren, DR Guaman, and Dr Pike in a week as outpatient. Date of Discharge: 02/07/19 Minutes to complete discharge: 35 Discharge Summary Reason For Visit: CHOLELITHIASIS Condition: Improved - Instructions Diet, Activity, Other Instructions: You came into the ED because symptoms of nausea, vomiting and pain in your abdomen. We did an Ultrasound of your abdomen,a CT scan of your abdomen, and a nuclear study of your gallbladder which did not show any signs of infection or acute pathology. Your symptoms have improved and you are stable enough to discharge you home. Medications: Please resume your home medications except the following; Please DO NOT resume Percocet 10-325mg or any other narcotic drugs as we feel like it has worsened your gastrointestinal symptoms. Follow up: Please follow up with Dr Guaman your PCP within one week Please follow up with Dr Pike the fugitive detective within one week Please follow up with Dr Warren Please follow up with the GI specialist Dr. Asim Gupta If you begin to experience bleeding, chest pain, shortness of breath, abdominal pains, nausea and vomiting please return to the ED immediately. Referrals: Pramod Warren MD [Staff Physician] - Alisson Guaman NP [Nurse Practitioner] - 1 Week Geronimo Pike MD [Staff Physician] - 1 Week Disposition: HOME - Home Medications Comprehensive Discharge Medication List: Ambulatory Orders Calcium Carbonate [Calcium] 500 mg PO DAILY #30 tablet 09/28/17 Omeprazole 20 mg PO DAILY PRN #30 capsule. MDD 1 11/23/17 Efavirenz/Emtricitab/Tenofovir [Atripla Tablet -] 1 tab PO DAILY #30 tab Multivitamin [Multiple Vitamins] 1 each PO DAILY #30 tablet 10/13/18 Ascorbic Acid [Vitamin C -] 500 mg PO DAILY #30 tablet 12/13/18 Gabapentin [Neurontin] 600 mg PO TID #90 tablet 12/13/18 Vitamin B Complex 1 each PO DAILY #30 capsule 12/13/18 Cholecalciferol (Vitamin D3) [Vitamin D3] 5,000 unit PO DAILY #30 tab.rapdis 05/24 Lactose-Reduced Food [Ensure Liquid] 1 can PO TID #90 liquid 01/19/19 Acetaminophen 650 mg PO BID PRN 02/03/19 Diphenhydramine [Benadryl Capsule -] 50 mg PO HS 02/03/19 Polyethylene Glycol 3350 [Miralax 119 gm Btl -] 17 gm PO HS 02/03/19 This patient is new to me today: Yes Date on this admission: 02/07/19 Emergency Visit: Yes ED Registration Date: 02/04/19 Care time: The patient presented to the Emergency Department on the above date and was hospitalized for further evaluation of their emergent condition. Critical Care patient: No - Discharge Referral Referred to [facility] Med [facility].C.: No ATTENDING PHYSICIAN STATEMENT I saw and evaluated the patient. I reviewed the resident's note and discussed the case with the resident. I agree with the resident's findings and plan as documented. SUBJECTIVE: OBJECTIVE: ASSESSMENT AND PLAN:
--- NOTE | 2019-02-07 19:08 | PN ---
Teaching Attending Note Name of Resident: Anila Hernandez ATTENDING PHYSICIAN STATEMENT I saw and evaluated the patient. I reviewed the resident's note and discussed the case with the resident. I agree with the resident's findings and plan as documented. SUBJECTIVE:seen at 10 am no pain, ate mac and cheese this am . OBJECTIVE: NAD Cv : RRR Lungs: CTAB Abd: soft, Nt, ND , NLBS Ext : no edema or erythema ASSESSMENT AND PLAN: 58 y/o lady with h/o HIV, gallstones, and morbid obesity s/p sleeve , who presented with Abd pain and was found to have suspected sphincter dysfunction 1- abd pain. dilatede CBd. cholelithias is but no choledocolithiasis. MRI last admission reviewed. imaging frm this admission reviewed. suspected sphincter dysfunction f/u with Dr. Gputa at [facility]. she already called to make appointment. she has contact info 2- HIV, cont meds 3- H/o leukopenia and neutropenia. chronic dc home
== END 2019-02-07 12:22 | disposition home or self-care (01) ==
LOC: JER 15:52 → UNDOADMIN 17:55 → JERBED 17:55 → J8W 02-04 02:12
PROVIDERS: ADMIT Internal Medicine; ATTEND Internal Medicine
DX: K83.4 Spasm of sphincter of Oddi (principal); Z21 Asymptomatic human immunodeficiency virus [HIV] infection status; Z79.891 Long term (current) use of opiate analgesic; Z98.84 Bariatric surgery status; R11.2 Nausea with vomiting, unspecified; R10.13 Epigastric pain; K80.20 Calculus of gallbladder without cholecystitis without obstruction; R10.11 Right upper quadrant pain; K59.03 Drug induced constipation; T40.2X5A Adverse effect of other opioids, initial encounter; K21.9 Gastro-esophageal reflux disease without esophagitis; R74.0 Nonspecific elevation of levels of transaminase and lactic acid dehydrogenase [LDH]
CPT/HCPCS: 36415; 74177-TC; 76705-TC; 78227-TC; 80053; 81003; 83605; 83690; 83735; 84100; 85025; 85027; 85610; 85730; 93005; 93010; 99285-25; A9537; J0131; J1644; J7030

== ENCOUNTER 2019-08-26 13:44 | Emergency (ER) | payer OTHER ==
[2019-08-26 13:50] VITALS: BP 106/65; PULSE 70; TEMP 97.9; BMI 58.6
--- NOTE | 2019-08-26 14:10 | PDOC ---
History of Present Illness - General Chief Complaint: Pain Stated Complaint: STOMACH PAIN - History of Present Illness Initial Comments: 08/26/19 14:10 58 y.o. F PMH cholecystectomy, HIV, gastric sleeve (~[address] Warren), hernia repair a few months ago presenting with abdominal pain for the past 3 days. The pain has increased in severity over the last hour which prompted her to come to the ED. The pain is mainly epigastric, sharp, 10/10, radiating b/l to the back. Associated w/ 1 episode NBNB emesis earlier today, decreased PO intake and dry mouth. Last meal was a few crackers this morning. Denies diarrhea or constipation, no SOB or chest pain, no dysuria or hematuria, no sick contacts. No recent travel. Past History - Past Medical History Allergies/Adverse Reactions: Allergies Allergy/AdvReac Type Severity Reaction Status Date / Time cephalexin monohydrate Allergy Severe Hives Verified 08/26/19 13:50 [From Keflex] Penicillins Allergy Severe Hives Verified 08/26/19 13:50 lactose [Lactose] Allergy Mild diarrhea Verified 08/26/19 13:50 metronidazole [From Flagyl] AdvReac Intermediate Rash Verified 08/26/19 13:50 Home Medications: Ambulatory Orders Albuterol Sulfate Inhaler - [Ventolin HFA Inhaler -] 1 - 2 inh PO Q4H #1 inhaler 08/20/19 Ascorbic Acid [Vitamin C -] 1 tab PO DAILY #30 tablet 08/20/19 Calcium Carbonate [Calcium] 1 tab PO DAILY #30 tablet 08/20/19 Cholecalciferol (Vitamin D3) [Vitamin D3] 1 tab PO DAILY #30 tab.rapdis 08/20/19 Cyclobenzaprine HCl [Flexeril 10 mg] 1 mg PO TID PRN #90 tablet 08/20/19 Diphenhydramine [Benadryl Capsule -] 1 cap PO TID #90 capsule 08/20/19 Efavirenz/Emtricitab/Tenofovir [Atripla Tablet -] 1 tab PO DAILY #30 tab 08/20/19 Gabapentin [Neurontin] 1 tab PO TID #90 tablet 08/20/19 Metoclopramide HCl [Reglan -] 1 tab PO TID #90 tablet 08/20/19 Omeprazole 1 cap PO DAILY #30 cap.sr 08/20/19 Oxycodone HCl/Acetaminophen [Percocet 10-325 mg Tablet] 1 each PO QID PRN #120 tablet MDD 4 08/20/19 Vitamin B Complex 1 each PO DAILY #30 capsule 08/20/19 Docusate Sodium [Docusate 100 mg] 100 mg PO BID #30 cap 08/26/19 Magnesium Citrate [Citroma -] 150 ml PO BID #1 bottle 08/26/19 Anemia: No Asthma: No Cancer: No Cardiac Disorders: No CVA: No COPD: No CHF: No Dementia: No Diabetes: No GI Disorders: Yes (vomiting) Disorders: No HTN: No Hypercholesterolemia: No Liver Disease: No Psychiatric Problems: No (Not before the surgery) Seizures: No Thyroid Disease: No - Surgical History Abdominal Surgery: Yes (benign tumor removed 2004) Appendectomy: No Cardiac Surgery: No Cholecystectomy: Yes (07/26/19) Lung Surgery: No Neurologic Surgery: Yes (BACK SX - X 3; [id number]) Orthopedic Surgery: Yes (LEFT KNEE SURGERY TORN MENISCUS, back surgery, r shoulder surgery 2014) - Immunization History Immunization Up to Date: Yes - Psycho Social/Smoking Cessation Hx Smoking Status: Yes Smoking History: Never smoked Have you smoked in the past 12 months: No Number of Cigarettes Smoked Daily: 1 If you are a former smoker, when did you quit?: 6YRS Cigars Per Day: 0 'Breaking Loose' booklet given: 06/05/15 Hx Alcohol Use: No Drug/Substance Use Hx: No Substance Use Type: None Hx Substance Use Treatment: No Review of Systems - Review of Systems Comments:: 08/26/19 14:14 GENERAL/CONSTITUTIONAL: No fever or chills. No weakness. HEENT: No vision or hearing changes. No sore throat. Oropharynx clear. CARDIOVASCULAR: No chest pain or palpitations RESPIRATORY: Denies cough, shortness of breath GASTROINTESTINAL: + nausea, vomiting. No diarrhea or constipation. GENITOURINARY: No dysuria, frequency, or change in urination. MUSCULOSKELETAL: No neck or back pain. No joint or muscle swelling or pain. SKIN: No rashes/ lesions/ ulcerations noted NEUROLOGIC: No headache, vertigo, loss of consciousness, or change in strength/sensation. *Physical Exam - Vital Signs Last Vital Signs Temp Pulse Resp BP Pulse Ox 97.9 F 70 18 106/65 99 03/22/20 13:47 08/26/19 13:47 08/26/19 13:47 08/26/19 13:47 08/26/19 13:47 - Physical Exam 08/26/19 14:16 GENERAL: AAOx3, NAD HEENT: NCAT, PERRLA, EOMI, sclera anicteric, conjunctiva clear, oropharynx clear w/o exudates. MMM. NECK: Normal ROM, supple, no lymphadenopathy, JVD LUNGS: CTABL no wheezes/ rhonchi/ rales. No distress, speaks in full sentences. No increased work of breathing. HEART: RRR, normal S1 S2, no MRG, peripheral pulses normal and equal b/l ABDOMEN: TTP epigastrium. Soft, nondistended, + BS. No guarding or rebound tenderness. MSK: ROM WNL EXTREMITIES: Normal inspection. No peripheral edema. No clubbing or cyanosis. NEUROLOGICAL: CN II-XII intact. Normal speech, normal gait, no focal sensorimotor deficits. SKIN: Warm, Dry, normal turgor, no rashes or lesions noted ED Treatment Course - LABORATORY CBC & Chemistry Diagram: 08/26/19 14:45 08/26/19 14:45 Medical Decision Making - Medical Decision Making 08/26/19 15:24 Labs ordered: cbc, cmp, trop meds: zofran, pepcid, morphine 2mg IV, normal saline CT A/P ordered to r/o gastric sleeve leak patient unable to tolerate PO contrast Will send for CT w/ only IV con 08/26/19 17:24 Lipase, trop WNL CBC wnl pending CT A/P w/ IV contrast Discharge - Discharge Information Problems reviewed: Yes Clinical Impression/Diagnosis: Abdominal pain - Additional Discharge Information Prescriptions: Magnesium Citrate [Citroma -] 150 ml PO BID #1 bottle Docusate Sodium [Docusate 100 mg] 100 mg PO BID #30 cap - Follow up/Referral Referrals: Anila Del Valle [employer]ER [Primary Care Provider] - - Patient Discharge Instructions Patient Printed Discharge Instructions: Increased Dietary Fiber May Improve Constipation Conditions With Pelvic Tyler, DI for Constipation Additional Instructions: You were seen in the emergency department for the evaluation of your abdominal pain, Your CT shows that you have large stool burden and no issues with the sleeve. Please return to the emergency department if you have worsening symptoms or new concerning symptoms. Please review the reading material in the packet regarding constipation. Please take the medications as prescribed. Thank you,. - Post Discharge Activity
[2019-08-26] MEDS ORDERED: morphine CARPU-JECT 2 MG/1 ML DISP.SYRIN IVPUSH ONE (14:31)
[2019-08-26] MEDS ORDERED: ONDANSETRON 4 MG/2 ML VIAL IVPUSH ONE (14:31)
[2019-08-26] MEDS ORDERED: SODIUM CHLORIDE 1,000 ML IV STA (14:31)
[2019-08-26] MEDS ORDERED: FAMOTIDINE 20 MG/50 ML IVPB 20 MG/50 ML MG IVPB ONE ×2 (14:37→15:08)
[2019-08-26] MEDS ORDERED: ONDANSETRON 4 MG/2 ML VIAL ONE (14:38)
[2019-08-26] MEDS ORDERED: MORPHINE SULFATE 2 MG/ML VIAL ONE (14:38)
[2019-08-26 15:13] LABS: BASO % 0.6 % (0-2.0); EOS % 3.4 % (0-4.5); HEMOGLOBIN 11.6 GM/dL (10.7-15.3); LYMPH % 40.8 % (8-40); MCH 30.4 pg (25.7-33.7); MCHC 33.3 g/dl (32.0-36.0); MEAN CELL VOLUME 91.3 fl (80-96); MEAN PLT VOLUME 8.6 fl (7.5-11.1); MONO % 5.6 % (3.8-10.2); NEUT % 49.6 % (42.8-82.8); PLATELET COUNT 241 K/MM3 (134-434); RBC 3.83 M/mm3 (3.60-5.2); RDW 14.8 % (11.6-15.6); WHITE BLOOD COUNT 4.2 K/mm3 (4.0-10.0)
[2019-08-26 15:27] LABS: ALBUMIN 3.4 g/dl (3.4-5.0); ALK PHOS 128 U/L (45-117); ANION GAP 5 MMOL/L (8-16); BILIRUBIN,TOTAL 0.3 mg/dL (0.2-1); CALCIUM 8.5 mg/dL (8.5-10.1); CHLORIDE 108 mmol/L (98-107); CO2 32 mmol/L (21-32); CREATININE 0.7 mg/dL (0.55-1.3); GLUCOSE,RANDOM 93 mg/dL (74-106); LIPASE 88 U/L (73-393); POTASSIUM 4.3 mmol/L (3.5-5.1); SGOT/AST 123 U/L (15-37); SGPT/ALT 57 U/L (13-61); SODIUM 144 mmol/L (136-145); TOT PROT 6.7 g/dl (6.4-8.2)
--- NOTE | 2019-08-26 15:47 | PDOC ---
Documentation entered by Eligio Norris SCRIBE, acting as scribe for Morelia Mazariegos MD. Morelia Mazariegos MD: This documentation has been prepared by the Jr elmore Daniel, SCRIBE, under my direction and personally reviewed by me in its entirety. I confirm that the documentation accurately reflects all work, treatment, procedures, and medical decision making performed by me. Attending Attestation - Resident Resident Name: Holli Mcqueen - ED Attending Attestation I have performed the following: I have examined & evaluated the patient, The case was reviewed & discussed with the resident, I agree w/resident's findings & plan, Exceptions are as noted - HPI HPI: 08/26/19 14:27 The patient is a 58 year old female with a past medical history of HIV, cholecystectomy, gastric sleeve, and hernia repair here today for evaluation of epigastric pain. The patient reports that her epigastric pain started 3 days ago and describes it as sharp, 10/10, and radiating her back. She notes associated poor PO intake, dry mouth, and one episode of vomiting today. Patient denies headache, lightheadedness. Denies fever, chills. Denies chest pain, shortness of breath. Denies diarrhea. Allergies: cephalexin monohydrate, penicillins, lactose, metronidazole PCP: Anila Del Valle - Physicial Exam PE: 08/26/19 15:35 agree with resident exam. PAteint is alert and oriented x 3. CV: rrr no m/r/g Pulm: cta b/l abdomen: soft, non distended, + mild diffuse tenderness without guarding or rebound. - Medical Decision Making 08/26/19 15:43 Patient presents to the ED complaining of nausea, vomiting and diffuse abdominal pain, worse in the epigastrium. Differential includes gastritis, less likely gastric sleeve leak, less likely ACS. Will check labs and EKg. Will check CT abdomen pelvis to rule out sleeve leak or other intraabdominal pathology. Discharge - Discharge Information Problems reviewed: Yes Clinical Impression/Diagnosis: Abdominal pain - Additional Discharge Information Prescriptions: Magnesium Citrate [Citroma -] 150 ml PO BID #1 bottle Docusate Sodium [Docusate 100 mg] 100 mg PO BID #30 cap - Follow up/Referral Referrals: Eligio,Anila E, PHYS THERAPIST [Primary Care Provider] - - Patient Discharge Instructions Patient Printed Discharge Instructions: Increased Dietary Fiber May Improve Constipation Conditions With Pelvic Tyler, DI for Constipation Additional Instructions: You were seen in the emergency department for the evaluation of your abdominal pain, Your CT shows that you have large stool burden and no issues with the sleeve. Please return to the emergency department if you have worsening symptoms or new concerning symptoms. Please review the reading material in the packet regarding constipation. Please take the medications as prescribed. Thank you,. - Post Discharge Activity
--- NOTE | 2019-08-26 19:37 | PDOC ---
*Physical Exam - Vital Signs Last Vital Signs Temp Pulse Resp BP Pulse Ox 97.9 F 70 18 106/65 99 08/26/19 13:47 08/26/19 13:47 08/26/19 13:47 08/26/19 13:47 08/26/19 13:47 - Physical Exam 08/26/19 19:33 Patient was signed out to me. Patient presents with epigastric pain Pending CTAP at the time of sign outl. ED Treatment Course - LABORATORY CBC & Chemistry Diagram: 08/26/19 14:45 08/26/19 14:45 - ADDITIONAL ORDERS Additional order review: Laboratory Results 08/26/19 14:45 Sodium 144 Potassium 4.3 Chloride 108 H Carbon Dioxide 32 Anion Gap 5 L BUN 13.0 Creatinine 0.7 Est GFR (CKD-EPI)AfAm 112.26 Est GFR (CKD-EPI)NonAf 96.86 Random Glucose 93 Calcium 8.5 Total Bilirubin 0.3 AST 123 H ALT 57 Alkaline Phosphatase 128 H Creatine Kinase 54 Troponin I < 0.02 Total Protein 6.7 Albumin 3.4 Lipase 88 08/26/19 14:45 RBC 3.83 MCV 91.3 MCHC 33.3 RDW 14.8 MPV 8.6 D Neutrophils % 49.6 D Lymphocytes % 40.8 H D Monocytes % 5.6 Eosinophils % 3.4 Basophils % 0.6 - Medications Given in the ED: ED Medications Discontinued Medications Generic Name Dose Route Start Last Admin Trade Name Freq PRN Reason Stop Dose Admin Sodium Chloride 1,000 mls @ 1,000 mls/hr 08/26/19 14:31 08/26/19 14:50 Normal Saline - IV 08/26/19 15:30 1,000 mls/hr ASDIR STA Administration Famotidine/Sodium Chloride 20 mg in 50 mls @ 100 mls/hr 08/26/19 14:37 08/26/19 15:14 Pepcid 20 Mg Premixed Ivpb - IVPB 08/26/19 15:06 100 mls/hr ONCE ONE Administration Morphine Sulfate 2 mg 08/26/19 14:31 08/26/19 14:50 Morphine Injection - IVPUSH 08/26/19 14:32 2 mg ONCE ONE Administration Ondansetron HCl 4 mg 08/26/19 14:31 08/26/19 14:50 Zofran Injection IVPUSH 08/26/19 14:32 4 mg ONCE ONE Administration Medical Decision Making - Medical Decision Making 08/26/19 19:[address] shows a large stool burder. Sleeve intact. Patient was re-assessed. Pain is back to her usual baseline and she agrees with taking stool softeners at home. 08/26/19 19:34 Discharge - Discharge Information Problems reviewed: Yes Clinical Impression/Diagnosis: Constipation Disposition: HOME - Admission No - Additional Discharge Information Prescriptions: Magnesium Citrate [Citroma -] 150 ml PO BID #1 bottle Docusate Sodium [Docusate 100 mg] 100 mg PO BID #30 cap - Follow up/Referral Referrals: Anila Del Valle, [employer] CLERK [Primary Care Provider] - - Patient Discharge Instructions Patient Printed Discharge Instructions: DI for Constipation, Increased Dietary Fiber May Improve Constipation Conditions With Pelvic Tyler Additional Instructions: You were seen in the emergency department for the evaluation of your abdominal pain, Your CT shows that you have large stool burden and no issues with the sleeve. Please return to the emergency department if you have worsening symptoms or new concerning symptoms. Please review the reading material in the packet regarding constipation. Please take the medications as prescribed. Thank you,. - Post Discharge Activity
--- NOTE | 2019-08-27 09:49 | EKG ---
Test Reason : Blood Pressure : / mmHG Vent. Rate : 068 BPM Atrial Rate : 068 BPM P-R Int : 160 ms QRS Dur : 082 ms QT Int : 414 ms P-R-T Axes : 040 065 046 degrees QTc Int : 440 ms POOR DATA QUALITY, INTERPRETATION MAY BE ADVERSELY AFFECTED NORMAL SINUS RHYTHM NORMAL ECG WHEN COMPARED WITH ECG OF 17-APR-2019 22:01, NO SIGNIFICANT CHANGE WAS FOUND Confirmed by Allen Villareal ([id number]) on 08/27/2019 9:48:47 AM Referred By: Confirmed By:Allen Villareal
== END 2019-08-26 19:48 | disposition home or self-care (01) ==
LOC: JER 13:44
PROC: 3E033GC Introduction of Other Therapeutic Substance into Peripheral Vein, Percutaneous Approach (ICD-10-PCS; principal; 2019-08-26)
PROC: 3E033NZ Introduction of Analgesics, Hypnotics, Sedatives into Peripheral Vein, Percutaneous Approach (ICD-10-PCS; 2019-08-26)
PROC: 3E033GC Introduction of Other Therapeutic Substance into Peripheral Vein, Percutaneous Approach (ICD-10-PCS; 2019-08-26)
DX: K59.00 Constipation, unspecified (principal); Z21 Asymptomatic human immunodeficiency virus [HIV] infection status; Z90.49 Acquired absence of other specified parts of digestive tract; Z98.84 Bariatric surgery status; Z98.890 Other specified postprocedural states; Z88.0 Allergy status to penicillin; Z88.1 Allergy status to other antibiotic agents
CPT/HCPCS: 36415; 74177-TC; 80053; 82550; 83690; 84484; 85025; 93005; 93010; 96365; 96375; 99285-25; J7030; Q9967

== ENCOUNTER 2020-09-02 08:25 | Day surgery (SDC) | payer OTHER ==
[2020-08-27 16:15] VITALS: BMI 26.6
[2020-09-02] MEDS ORDERED: BUPIVACAINE LIPOSOME/PF (EXPAREL) 266 MG/20 ML VIAL ONE (09:57)
[2020-09-02] MEDS ORDERED: BUPIVACAINE HCL 50 ML ONE ×2 (09:57→11:09)
[2020-09-02] MEDS ORDERED: SODIUM CHLORIDE 0.9% P/F 10 ML VIAL IJ ONE (09:57)
[2020-09-02] MEDS ORDERED: MIDAZOLAM HCL 2 MG/2 ML SINGLE DOSE VIAL ONE (09:57)
[2020-09-02] MEDS ORDERED: PROPOFOL 20 ML ONE ×4 (10:25→12:31)
[2020-09-02] MEDS ORDERED: ceFAZolin SODIUM 1 GM VIAL ONE (10:25)
[2020-09-02] MEDS ORDERED: LIDOCAINE HCL/PF 2% SDV 5ML VIAL ONE (10:25)
[2020-09-02] MEDS ORDERED: TRANEXAMIC ACID 1000 MG/10 ML VIAL ONE (10:25)
[2020-09-02] MEDS ORDERED: VANCOMYCIN 1,000 MG VIAL (RESTRICTED TO ID ONLY) ONE ×2 (10:56→11:19)
[2020-09-02] MEDS ORDERED: BUPIVICAINE 0.25%/MORPH PF/KETOROLAC - 51ML DISP.SYRINGE IA ONE ×2 (11:11→12:48)
[2020-09-02] MEDS ORDERED: ePHEDrine SULFATE 50 MG/1 ML AMPULE ONE (11:18)
[2020-09-02] MEDS ORDERED: PHENYLEPHRINE HCL 10 MG/1 ML SINGLE DOSE VIAL ONE (11:30)
[2020-09-02] MEDS ORDERED: LACTATED RINGERS SOLUTION 1,000 ML/1,000 ML INFUS.BAG IV SCH (13:45)
[2020-09-02] MEDS ORDERED: oxyCODONE HCL 5 MG TABLET PO PRN ×2 (13:47)
[2020-09-02] MEDS ORDERED: PATIENT'S OWN MEDICATION (NON-FORMULARY) (Gabapentin [Neurontin] 600 MG Tablet) PO SCH (14:00)
[2020-09-02] MEDS ORDERED: DIPHENHYDRAMINE PO SCH (14:00)
[2020-09-02] MEDS ORDERED: FAMOTIDINE 20 MG PREMIXED IVPB IVPB ONE (14:22)
[2020-09-02] MEDS ORDERED: FAMOTIDINE 20 MG/50 ML IVPB 20 MG/50 ML MG IVPB ONE ×2 (14:22→14:26)
[2020-09-02] MEDS ORDERED: FAMOTIDINE 20 MG TABLET PO ONE (14:24)
[2020-09-02] MEDS ORDERED: MAG HYDROX/AL HYDROX/SIMETH 30 ML UNIT-DOSE CUP PO ONE ×2 (14:26→15:39)
[2020-09-02] MEDS ORDERED: ACETAMINOPHEN 325 MG TABLET (FP) PO ONE (14:44)
[2020-09-02] MEDS: METOCLOPRAMIDE HCL 10 MG TABLET (FP) PO SCH ×2 (16:27→21:32)
[2020-09-02] MEDS: ACETAMINOPHEN 325 MG TABLET (FP) PO SCH ×2 (16:27→19:45)
[2020-09-02] MEDS: GABAPENTIN 300 MG CAPSULE PO SCH ×3 (18:14→21:32)
[2020-09-02] MEDS: VANCOMYCIN 1 GM in D5W (PRE-DOCKED) 1,000 MG/250 ML IVPB SCH (18:14)
[2020-09-02] MEDS: ONDANSETRON 4 MG/2 ML VIAL IVPUSH PRN (19:52)
[2020-09-02] MEDS: SENNOSIDES/DOCUSATE COMBO (SENNA PLUS) TABLET (UD) PO SCH (21:34)
[2020-09-02] MEDS: oxyCODONE HCL 5 MG TABLET PO PRN (23:03)
[2020-09-03] MEDS: oxyCODONE HCL 5 MG TABLET PO PRN ×4 (02:35→13:22)
[2020-09-03] MEDS: ACETAMINOPHEN 325 MG TABLET (FP) PO SCH ×3 (02:35→13:24)
[2020-09-03] MEDS: VANCOMYCIN 1 GM in D5W (PRE-DOCKED) 1,000 MG/250 ML IVPB SCH (02:38)
[2020-09-03] MEDS: METOCLOPRAMIDE HCL 10 MG TABLET (FP) PO SCH ×2 (06:13→13:24)
[2020-09-03] MEDS ORDERED: SODIUM CHLORIDE 500 ML IV STA (06:39)
[2020-09-03 07:36] LABS: HEMATOCRIT 28.2 % (32.4-45.2); HEMOGLOBIN 9.3 GM/dl (10.7-15.3); MCH 31.6 pg (25.7-33.7); MEAN CELL VOLUME 95.7 fl (80-96); MEAN PLT VOLUME 8.3 fl (7.5-11.1); PLATELET COUNT 159 K/MM3 (134-434); RBC 2.94 M/mm3 (3.60-5.2); RDW 13.6 % (11.6-15.6); WHITE BLOOD COUNT 3.4 K/mm3 (4.0-10.8)
[2020-09-03] MEDS: SENNOSIDES/DOCUSATE COMBO (SENNA PLUS) TABLET (UD) PO SCH (09:07)
[2020-09-03] MEDS: GABAPENTIN 300 MG CAPSULE PO SCH ×2 (09:07→13:24)
[2020-09-03] MEDS: ONDANSETRON 4 MG/2 ML VIAL IVPUSH PRN (09:08)
[2020-09-03] MEDS ORDERED: diphenhydrAMINE HCL 25 MG CAPSULE (FP) PO SCH (10:00)
[2020-09-03] MEDS ORDERED: PATIENT'S OWN MEDICATION (NON-FORMULARY) (Efavirenz/Emtricitab/Tenofovir 1 TAB Tab) PO SCH (10:00)
[2020-09-03] MEDS ORDERED: ENOXAPARIN NA (PORCINE) 40 MG/0.4 ML DISP.SYRIN SQ SCH (10:00)
[2020-09-03 14:12] VITALS: BP 97/53; PULSE 73; TEMP 98.6
== END 2020-09-03 15:40 | disposition home or self-care (01) ==
LOC: FASUSAT 08:25 → EDSTATUS 10:45 → FM/S 17:00 → FASUSAT 09-03 15:40
PROVIDERS: ATTEND Orthopaedic Surgery
PROC: 0SRC0J9 Replacement of Right Knee Joint with Synthetic Substitute, Cemented, Open Approach (ICD-10-PCS; principal; 2020-09-02 11:37)
DX: M17.11 Unilateral primary osteoarthritis, right knee (principal)
CPT/HCPCS: 27447; C1776; 36415; 73560-TC-RT-FY; 85027; 88305-TC; 88311-TC; 94760; 97010-GP; 97116-GP; 97162-GP

== ENCOUNTER 2023-01-06 04:32 | Day surgery (SDC) | payer OTHER ==
[2023-01-05 11:53] VITALS: BMI 29.0
[2023-01-06] MEDS ORDERED: KETOROLAC TROMETHAMINE 30 MG/1 ML VIAL ONE (10:34)
[2023-01-06] MEDS ORDERED: LIDOCAINE HCL 2% JELLY 10 ML CARTRIDGE TP ONE (10:36)
[2023-01-06 10:45] VITALS: TEMP 98.1
[2023-01-06 11:15] VITALS: RESP 14
[2023-01-06 11:20] VITALS: BP 100/51; PULSE 54
[2023-01-06] MEDS ORDERED: LIDOCAINE HCL 2% JELLY 10 ML CARTRIDGE ONE (12:08)
== END 2023-01-06 11:32 | disposition home or self-care (01) ==
LOC: JASU-ENDO 04:32
PROVIDERS: ATTEND Internal Medicine Gastroenterology
PROC: 06LY8CC Occlusion of Hemorrhoidal Plexus with Extraluminal Device, Via Natural or Artificial Opening Endoscopic (ICD-10-PCS; principal; 2023-01-06 09:30)
DX: K64.2 Third degree hemorrhoids (principal)

== ENCOUNTER 2023-08-05 06:30 | Day surgery (SDC) | payer OTHER ==
[2023-07-27 12:49] VITALS: BMI 33.3
[2023-08-05] MEDS ORDERED: VANCOMYCIN 1,000 MG VIAL (RESTRICTED TO ID ONLY) ONE (06:39)
[2023-08-05] MEDS ORDERED: MIDAZOLAM HCL 2 MG/2 ML SINGLE DOSE VIAL ONE ×4 (07:03→10:32)
[2023-08-05] MEDS ORDERED: PROPOFOL 20 ML ONE ×3 (07:03→09:23)
[2023-08-05] MEDS ORDERED: BUPIVACAINE LIPOSOME/PF (EXPAREL) 266 MG/20 ML VIAL ONE (07:05)
[2023-08-05] MEDS ORDERED: ACETAMINOPHEN INJECTION 100 ML IVPB ONE (07:05)
[2023-08-05] MEDS ORDERED: BUPIVACAINE HCL/PF 0.5% (5MG/ML) 10 ML VIAL ONE (07:05)
[2023-08-05] MEDS ORDERED: ONDANSETRON 4 MG/2 ML VIAL IVPUSH PRN (07:11)
[2023-08-05] MEDS ORDERED: ACETAMINOPHEN 325 MG TABLET (FP) PO PRN (07:11)
[2023-08-05] MEDS ORDERED: LACTATED RINGERS SOLUTION 1,000 ML IV SCH (07:15)
[2023-08-05] MEDS ORDERED: TRANEXAMIC ACID 1000 MG/10 ML VIAL ONE ×2 (08:03→08:28)
[2023-08-05] MEDS ORDERED: DEXAMETHASONE SOD PHOSPHATE 4 MG/1 ML VIAL ONE (08:28)
[2023-08-05] MEDS ORDERED: ONDANSETRON 4 MG/2 ML VIAL ONE (08:28)
[2023-08-05] MEDS ORDERED: KETOROLAC TROMETHAMINE 30 MG/1 ML VIAL ONE (08:29)
[2023-08-05] MEDS ORDERED: BUPIVICAINE 0.25%/MORPH PF/KETOROLAC - 51ML DISP.SYRINGE IA ONE (08:43)
[2023-08-05] MEDS: METOCLOPRAMIDE HCL INJECTION 10 MG/2 ML VIAL IVPUSH ONE (10:11)
[2023-08-05] MEDS: FAMOTIDINE 20 MG PREMIXED IVPB IVPB ONE (10:15)
[2023-08-05] MEDS ORDERED: METOPROLOL TARTRATE 5 MG/5 ML VIAL ONE (10:32)
[2023-08-05] MEDS: MIDAZOLAM HCL 2 MG/2 ML SINGLE DOSE VIAL IVPUSH ONE (10:35)
[2023-08-05] MEDS: METOPROLOL TARTRATE 5 MG/5 ML VIAL IVPUSH ONE (10:38)
[2023-08-05 11:18] LABS: HEMATOCRIT 35.6 % (32.4-45.2); HEMOGLOBIN 11.5 G/dL (10.7-15.3); INR 1.05 (0.83-1.09); MCH 31.2 pg (25.7-33.7); MCHC 32.3 g/dl (32.0-36.0); MEAN CELL VOLUME 96.4 fl (80-96); MEAN PLT VOLUME 9.1 fl (7.5-11.1); PLATELET COUNT 186.8 10^3/uL (134-434); PROTHROMBIN TIME (PATIENT) 12.2 SEC (9.7-13.0); RBC 3.69 10^6/uL (3.60-5.2); RDW 14.7 % (11.6-15.6); WHITE BLOOD COUNT 5.3 10^3/uL (4.0-10.8)
[2023-08-05 11:21] LABS: ACTIVATED PTT 34.6 SECONDS (25.2-36.5)
[2023-08-05] MEDS ORDERED: LORazepam 0.5 MG TABLET ONE (11:25)
[2023-08-05] MEDS: LORazepam 0.5 MG TABLET PO PRN (11:30)
[2023-08-05] MEDS: LACTATED RINGERS SOLUTION 1,000 ML IV SCH (11:33)
[2023-08-05] MEDS: FAMOTIDINE 20 MG/50 ML IVPB 20 MG/50 ML MG IVPB ONE (12:58)
[2023-08-05] MEDS: oxyCODONE HCL 5 MG TABLET PO PRN (15:45)
[2023-08-05] MEDS: CEFAZOLIN SODIUM 2 GM in DEXTROSE 5%-WATER 100 ML IVPB SCH (15:45)
[2023-08-06] MEDS: oxyCODONE HCL 5 MG TABLET PO PRN (05:58)
[2023-08-06 06:51] VITALS: RESP 18
[2023-08-06 08:47] LABS: HEMATOCRIT 29.1 % (32.4-45.2); HEMOGLOBIN 9.6 G/dL (10.7-15.3); MCH 31.7 pg (25.7-33.7); MEAN CELL VOLUME 96.2 fl (80-96); MEAN PLT VOLUME 9.2 fl (7.5-11.1); PLATELET COUNT 182.5 10^3/uL (134-434); RBC 3.03 10^6/uL (3.60-5.2); RDW 14.2 % (11.6-15.6); WHITE BLOOD COUNT 4.5 10^3/uL (4.0-10.8)
[2023-08-06 09:13] LABS: CALCIUM 8.3 mg/dl (8.5-10.1); CREATININE 0.7 mg/dl (0.6-1.3); POTASSIUM 4.2 mmol/L (3.5-5.1)
[2023-08-06] MEDS: ENOXAPARIN NA (PORCINE) 30 MG/0.3 ML DISP.SYRIN SQ SCH (09:20)
[2023-08-06 10:05] VITALS: BP 104/55; PULSE 86; TEMP 98.6
[2023-08-08 18:07] LABS: CK-MM 91 % (97-100)
== END 2023-08-06 10:28 | disposition left against medical advice (07) ==
LOC: FASUSAT 06:30 → EDSTATUS 07:30 → FM/S 12:05 → FASUSAT 08-06 10:28
PROVIDERS: ATTEND Orthopaedic Surgery
PROC: 8E0Y0CZ Robotic Assisted Procedure of Lower Extremity, Open Approach (ICD-10-PCS; 2023-08-05)
PROC: 0SRD0J9 Replacement of Left Knee Joint with Synthetic Substitute, Cemented, Open Approach (ICD-10-PCS; principal; 2023-08-05 08:11)
DX: M17.12 Unilateral primary osteoarthritis, left knee (principal)
CPT/HCPCS: 20985; 27447; C1776; S2900; 36415; 73560-TC-LT-FY; 80048; 82550; 82552; 83880; 84484; 85027; 85610; 85730; 88305-TC; 88311-TC; 93005; 93010; 94760; 97116-GP; 97162-GP; C1889; J0131

== ENCOUNTER 2024-03-27 06:08 | Day surgery (SDC) | payer OTHER ==
[2024-03-20 16:31] VITALS: BMI 30.7
[2024-03-27] MEDS ORDERED: DEXMEDETOMIDINE HCL 200 MCG/2 ML IVPB ONE (07:14)
[2024-03-27] MEDS ORDERED: BUPIVACAINE HCL/PF 0.25% (2.5MG/ML) 10 ML VIAL ONE (07:19)
[2024-03-27] MEDS ORDERED: MIDAZOLAM HCL 2 MG/2 ML SINGLE DOSE VIAL ONE (07:26)
[2024-03-27] MEDS ORDERED: PROPOFOL 20 ML ONE (07:26)
[2024-03-27] MEDS ORDERED: ePHEDrine SULFATE 50 MG/1 ML AMPULE ONE (07:41)
[2024-03-27] MEDS ORDERED: GENTAMICIN SO4 80 MG/2 ML VIAL ONE (07:48)
[2024-03-27] MEDS ORDERED: DEXAMETHASONE SOD PHOSPHATE 4 MG/1 ML VIAL ONE (08:35)
[2024-03-27] MEDS ORDERED: KETOROLAC TROMETHAMINE 30 MG/1 ML VIAL ONE (08:35)
[2024-03-27] MEDS ORDERED: CLINDAMYCIN 600MG PREMIX IVPB 600 MG/50 ML BAG IVPB ONE (08:35)
[2024-03-27] MEDS ORDERED: ONDANSETRON 4 MG/2 ML VIAL ONE (08:35)
[2024-03-27] MEDS ORDERED: FAMOTIDINE 20 MG/50 ML IVPB 20 MG/50 ML MG IVPB ONE ×2 (09:06→09:32)
[2024-03-27] MEDS: FAMOTIDINE 20 MG PREMIXED IVPB IVPB ONE (09:15)
[2024-03-27] MEDS: ACETAMINOPHEN 1000 MG/100 ML BAG IVPB ONE (09:20)
[2024-03-27] MEDS ORDERED: ACETAMINOPHEN INJECTION 100 ML ONE (09:21)
[2024-03-27] MEDS: ONDANSETRON 4 MG/2 ML VIAL IVPUSH PRN (09:25)
[2024-03-27] MEDS ORDERED: FENTANYL CITRATE/PF 50 MCG/ML VIAL ONE (09:28)
[2024-03-27] MEDS ORDERED: oxyCODONE HCL 5 MG TABLET PO PRN (09:31)
[2024-03-27] MEDS: MAG HYDROX/AL HYDROX/SIMETH 30 ML UNIT-DOSE CUP ONE (09:40)
[2024-03-27] MEDS ORDERED: LACTATED RINGERS SOLUTION 1,000 ML IV SCH (09:45)
[2024-03-27 09:57] VITALS: RESP 16
[2024-03-27 11:16] VITALS: TEMP 96.9
[2024-03-27 11:52] VITALS: BP 100/38; PULSE 72
== END 2024-03-27 10:40 | disposition home or self-care (01) ==
LOC: FASU 06:08
PROVIDERS: ATTEND Orthopaedic Surgery Sports Medicine
PROC: 0SS Lower Joints, Reposition (ICD-10-PCS; principal; 2024-03-27 07:30)
DX: M24.662 Ankylosis, left knee (principal); M65.862 Other synovitis and tenosynovitis, left lower leg; Z96.652 Presence of left artificial knee joint
CPT/HCPCS: 94760; J0131